=== PATIENT | female | born 1965 | race Caucasian/White ===

== ENCOUNTER 2019-12-04 13:43 | Outpatient (CLI) | payer OTHER, SELFPAY ==
[2019-12-04 14:11] LABS: Basophils Absolute Auto 0.03 K/mm3 (0.00-0.10); Basophils Percent Auto 0.6 % (0.0-1.0); Eosinophils Absolute Auto 0.34 K/mm3 (0.02-0.50); Eosinophils Percent Auto 6.6 % (1.0-6.0); Hematocrit 43.1 % (35.0-49.0); Hemoglobin 13.7 g/dL (12.0-15.0); Immature Granulocyte Absolute 0.01 K/mm3 (0.00-0.00); Immature Granulocyte Percent A 0.2 % (0.0-0.0); Lymphocytes Absolute Auto 2.31 K/mm3 (1.10-4.50); Mean Corpuscular HGB Conc 31.8 g/dL (32.0-36.0); Mean Corpuscular Hemoglobin 31.2 pg (27.0-31.0); Mean Corpuscular Volume 98.2 fL (78.0-102.0); Mean Platelet Volume 10.1 fl (9.2-11.8); Monocytes Absolute Auto 0.42 K/mm3 (0.10-0.90); Monocytes Percent Auto 8.2 % (2.0-11.0); Neutrophils Percent Auto 39.4 % (50.0-70.0); Platelet Count Result 214 K/mm3 (150-420); Red Blood Count 4.39 M/mm3 (4.20-5.40); Red Cell Distribution Width 14.2 % (11.6-14.4); White Blood Count 5.1 K/mm3 (4.8-10.8)
[2019-12-04 14:52] LABS: Alanine Aminotransferase 32 U/L (14-59); Albumin Level 3.6 g/dL (3.4-5.0); Alkaline Phosphatase 123 U/L (46-116); Anion Gap 10.9 mmol/L (7-16); Aspartate Amino Transferase 21 U/L (15-37); Bilirubin,Total 0.3 mg/dL (0.00-1.00); Blood Urea Nitrogen 20 mg/dL (7-18); Calcium 9.5 mg/dL (8.5-10.1); Carbon Dioxide 32 mmol/L (21-32); Chloride 105 mmol/L (98-108); Estimated Glomerular Filt Rate > 60; Glucose 180 mg/dL (70-99); Osmolality Calculated 305 mOsm/kg (285-295); Potassium 3.9 mmol/L (3.5-5.1); Sodium 144 mmol/L (136-145); Total Protein 6.7 g/dL (6.4-8.2)
== END 2019-12-04 13:44 | disposition home or self-care (01) ==
PROVIDERS: PCP Family Medicine; Visit Provider Internal Medicine Hematology & Oncology
DX: C50.411 Malignant neoplasm of upper-outer quadrant of right female breast (principal); Z17.0 Estrogen receptor positive status [ER+]
CPT/HCPCS: 36415; 80053; 85025

== ENCOUNTER 2019-12-29 19:50 | Outpatient (CLI) | payer OTHER, SELFPAY ==
[2019-12-29 20:16] LABS: Hemoglobin A1C 6.9 % (<5.7)
== END 2019-12-29 19:51 | disposition home or self-care (01) ==
LOC: CHSLAB 20:00
PROVIDERS: PCP Family Medicine; Visit Provider Physician Assistant
DX: E11.9 Type 2 diabetes mellitus without complications (principal)
CPT/HCPCS: 36415; 83036

== ENCOUNTER 2020-04-17 18:14 | Outpatient (CLI) | payer OTHER, SELFPAY ==
[2020-04-17 18:39] LABS: Hemoglobin A1C 6.5 % (<5.7)
[2020-04-17 19:27] LABS: Anion Gap 7 mmol/L (8-16); Blood Urea Nitrogen 25 mg/dL (7-18); Calcium 9.6 mg/dL (8.5-10.1); Carbon Dioxide 32 mmol/L (21-32); Chloride 105 mmol/L (98-108); Estimated Glomerular Filt Rate 58; Glucose 136 mg/dL (70-99); Osmolality Calculated 304 mOsm/kg (285-295); Potassium 3.8 mmol/L (3.5-5.1); Sodium 144 mmol/L (136-145)
== END 2020-04-17 18:15 | disposition home or self-care (01) ==
LOC: CHSLAB 18:16
PROVIDERS: Nurse Practitioner Family; PCP Physician Assistant; Visit Provider Physician Assistant
DX: E11.9 Type 2 diabetes mellitus without complications (principal)
CPT/HCPCS: 36415; 80048; 83036

== ENCOUNTER 2020-05-26 18:12 | Outpatient (CLI) | payer OTHER, SELFPAY ==
[2020-05-26 18:49] LABS: Basophils Absolute Auto 0.04 K/mm3 (0.00-0.10); Basophils Percent Auto 0.7 % (0.0-1.0); Eosinophils Absolute Auto 0.43 K/mm3 (0.02-0.50); Eosinophils Percent Auto 7.5 % (1.0-6.0); Hematocrit 43.9 % (35.0-49.0); Hemoglobin 14.2 g/dL (12.0-15.0); Immature Granulocyte Absolute 0.02 K/mm3 (0.00-0.00); Immature Granulocyte Percent A 0.4 % (0.0-0.0); Lymphocytes Absolute Auto 2.53 K/mm3 (1.10-4.50); Lymphocytes Percent Auto 44.4 % (18.0-42.0); Mean Corpuscular HGB Conc 32.3 g/dL (32.0-36.0); Mean Corpuscular Hemoglobin 31.3 pg (27.0-31.0); Mean Corpuscular Volume 96.7 fL (78.0-102.0); Monocytes Percent Auto 8.8 % (2.0-11.0); Neutrophils Absolute Auto 2.2 K/mm3 (1.7-7.2); Neutrophils Percent Auto 38.2 % (50.0-70.0); Platelet Count Result 256 K/mm3 (150-420); Red Blood Count 4.54 M/mm3 (4.20-5.40); Red Cell Distribution Width 14.2 % (11.6-14.4); White Blood Count 5.7 K/mm3 (4.8-10.8)
[2020-05-26 19:19] LABS: Alanine Aminotransferase 44 U/L (14-59); Alkaline Phosphatase 114 U/L (46-116); Anion Gap 7 mmol/L (8-16); Aspartate Amino Transferase 23 U/L (15-37); Bilirubin,Total 0.4 mg/dL (0.00-1.00); Blood Urea Nitrogen 17 mg/dL (7-18); Calcium 9.5 mg/dL (8.5-10.1); Carbon Dioxide 34 mmol/L (21-32); Chloride 105 mmol/L (98-108); Estimated Glomerular Filt Rate > 60; Glucose 124 mg/dL (70-99); Osmolality Calculated 304 mOsm/kg (285-295); Potassium 3.8 mmol/L (3.5-5.1); Sodium 146 mmol/L (136-145); Total Protein 6.7 g/dL (6.4-8.2)
[2020-05-30 21:42] LABS: CA 27.29 34 U/mL (<38)
== END 2020-05-26 18:13 | disposition home or self-care (01) ==
LOC: CHSLAB 18:15
PROVIDERS: PCP Family Medicine; Visit Provider Internal Medicine Hematology & Oncology
DX: C50.411 Malignant neoplasm of upper-outer quadrant of right female breast (principal); Z17.0 Estrogen receptor positive status [ER+]
CPT/HCPCS: 36415; 80053; 85025; 86300

== ENCOUNTER 2020-06-22 18:13 | Outpatient (CLI) | payer OTHER, SELFPAY ==
[2020-06-22 19:24] LABS: Cholesterol 195 mg/dL (0-200); HDL Direct 71 mg/dL (40-60); LDL Cholesterol Calculated 91 mg/dL (<130); Thyroid Stimulating Hormone 0.59 uIU/mL (0.36-3.74); Triglycerides 167 mg/dL (0-150)
[2020-06-23 06:16] LABS: Creatinine Urine 64.66 mg/dL (40-278); MALB Creatinine Ratio 20.1 mg/g (0-30); Microalbumin Urine Random < 13.0 mg/L
== END 2020-06-22 18:14 | disposition home or self-care (01) ==
LOC: CHSLAB 18:16
PROVIDERS: PCP Physician Assistant; Visit Provider Physician Assistant
DX: E78.2 Mixed hyperlipidemia (principal); E11.9 Type 2 diabetes mellitus without complications
CPT/HCPCS: 36415; 80061; 82043; 84439; 84443

== ENCOUNTER 2020-06-27 11:03 | Outpatient (CLI) | payer OTHER, SELFPAY ==
[2020-06-28 18:52] LABS: SARS-CoV-2 RNA PCR Positive
== END 2020-06-27 11:04 | disposition home or self-care (01) ==
LOC: CHSLAB 11:07
PROVIDERS: Visit Provider Nurse Practitioner
DX: U07.1 COVID-19 (principal)
CPT/HCPCS: 87635; C9803; U0003

== ENCOUNTER 2020-09-18 19:01 | Observation (INO) | payer OTHER, SELFPAY ==
[2020-09-18] VITALS (10 sets, daily range): BP systolic 124–142; BP diastolic 80–96; PULSE 83–89; RESP 13–22; TEMP 36.6–36.8; O2SAT 96–100; BMI 44.9
--- NOTE | ~2020-09-18 | XR_ITS ---
EXAMINATION: XR chest 2V DATE: 09/18/2020 19:24 INDICATION: Weakness. TECHNIQUE: Frontal and lateral views of the chest were obtained. COMPARISON: Chest 2 views 01/26/2017, CT abdomen and pelvis 12/20/2018 FINDINGS: The chest demonstrates clear lungs without pneumonia, pleural effusion, or pneumothorax. Th e heart size is normal. There is surgical clips in the chest wall. IMPRESSION: 1. No acute cardiopulmonary disease. Reviewed, dictated and finalized at location A. [facility]
--- NOTE | 2020-09-18 19:08 | ECG_ITS ---
Measurements Intervals [place] Rate: 90 P: 57 CA: 153 QRS: 47 QRSD: 77 T: 51 QT: 363 QTc: 445 Interpretive Statements SINUS RHYTHM BASELINE ARTIFACT- I, II, III, AVR, AVL, AVF, V1, V4-V6 NORMAL ECG Electronically Signed On 09-20-2020 8:10:04 REHAB SPECIALIST by Lon Dillon D.O.
[2020-09-18 19:20] LABS: Glucose Point of Care 157 (65-105)
[2020-09-18] MEDS: NITROGLYCERIN SL 0.4 MG TABLET SUBLINGUAL (19:28)
[2020-09-18] MEDS: ASPIRIN 81 MG CHEWABLE TABLET 324 MG PO (19:33)
[2020-09-18] MEDS: SODIUM CHLORIDE 0.9% IV 1,000 ML 999 ML IV CONT (19:41)
--- NOTE | 2020-09-18 19:52 | ED.WEAKNESS ---
HPI - Weakness General Chief complaint: Weakness Stated complaint: Not feeling well Time Seen by Provider: 09/18/20 19:20 Source: patient Mode of arrival: ambulatory Limitations: no limitations History of Present Illness HPI Narrative: 54-year-old woman with a history of type 2 diabetes comes to the emergency department complaining of weakness, feeling sweaty and nauseated. She states that she did not feel well yesterday or today and she tried to come to work today but she got worse when she got here. She states that she has had no fever, cough or cold symptoms, abdominal pain, dysuria, vomiting, diarrhea, rash, chest pain or shortness of breath. She denies any recent illnesses or sick exposures. MD Complaint: generalized weakness Onset (ago): day(s) (1-2) Duration: constant and progressively worsening Location: generalized Migration: none Relieving factors: none Exacerbating factors: rest Associated symptoms: denies other symptoms Related Data Home Medications Medication Instructions Recorded Confirmed acetaminophen 1,000 mg PO HS 09/18/20 09/18/20 albuterol sulfate 2 puff INHALATION QID PRN 09/18/20 09/18/20 amitriptyline 150 mg PO HS 09/18/20 09/18/20 armodafinil [Nuvigil] 150 mg PO QAM 09/18/20 09/18/20 aspirin 325 mg PO DAILY 09/18/20 09/18/20 khrsgnx-zkujueuulqeqt-fzrsviqd 2 tablet PO Q4-6H PRN 09/18/20 09/18/20 [Excedrin Migraine] atorvastatin 80 mg PO DAILY 09/18/20 09/18/20 black cohosh 540 mg PO HS 09/18/20 09/18/20 bupropion HCl 450 mg PO DAILY 09/18/20 09/18/20 uktjhreytp-mhllfdo-denbifxp 1 cap PO Q4-6H PRN 09/18/20 09/18/20 [Fiorinal] calcium-vitamin D2 1 cap PO BID 09/18/20 09/18/20 cholecalciferol (vitamin D3) 100 mcg PO HS 09/18/20 09/18/20 [Vitamin D3] empagliflozin [Jardiance] 25 mg PO DAILY 09/18/20 09/18/20 fluticasone propion-salmeterol 1 inh INHALATION BID 09/18/20 09/18/20 [Wixela Inhub] fluticasone propionate 2 spray INTRANASAL DAILY 09/18/20 09/18/20 gabapentin 1,200 mg PO BID 09/18/20 09/18/20 galcanezumab-gnlm [Emgality Pen] 120 mg SUBCUT MONTHLY 09/18/20 09/18/20 glipizide 10 mg PO BID 09/18/20 09/18/20 hydrochlorothiazide 25 mg PO DAILY 09/18/20 09/18/20 hydroxyzine HCl 50 mg PO HS 09/18/20 09/18/20 ketorolac 10 mg PO BID PRN 09/18/20 09/18/20 loratadine 10 mg PO DAILY 09/18/20 09/18/20 losartan 25 mg PO DAILY 09/18/20 09/18/20 melatonin 20 mg PO HS PRN 09/18/20 09/18/20 multivit with min-folic acid 1 tablet PO DAILY 09/18/20 09/18/20 [Adult One Daily Multivitamin] omega-3 fatty acids-vitamin E 1 cap PO DAILY 09/18/20 09/18/20 [[place]-3 Fish Oil] omeprazole 20 mg PO DAILY 09/18/20 09/18/20 pioglitazone [Actos] 15 mg PO DAILY 09/18/20 09/18/20 potassium chloride 20 meq PO BID 09/18/20 09/18/20 vitamin B complex [B 1 tablet PO HS 09/18/20 09/18/20 Complex-Vitamin B12] Allergies Allergy/AdvReac Type Severity Reaction Status Date / Time codeine Allergy Unknown Verified 09/18/20 19:21 furosemide [From Lasix] Allergy Unknown Verified 09/18/20 19:21 metformin Allergy Unknown Verified 09/18/20 19:21 sertraline [From Zoloft] Allergy Unknown Verified 09/18/20 19:21 Review of Systems Constitutional: Constitutional: Denies chills, Denies fever(s) and Reports weakness Eyes: Eyes: Denies change in vision and Denies photophobia ENT: Denies dysphagia, Denies nasal congestion and Denies sore throat Cardiovascular: Cardiovascular: Denies chest pain and Denies radiating jaw, neck or arm pain Respiratory: Respiratory: Denies cough, Denies dyspnea and Denies wheezing Gastrointestinal: Gastrointestinal: Denies abdominal pain, Denies diarrhea, Reports nausea and Denies vomiting Genitourinary: Genitourinary: Denies nocturia and Denies dysuria Musculoskeletal: Musculoskeletal: Denies arthralgias and Denies joint swelling Integumentary/Breasts: Skin/Breast: Denies pruritus, Denies erythema and Denies rash Neurologic: Denies vertigo, Reports dizziness and Denies syncope Hematologic/L
[2020-09-18 19:57] LABS: Basophils Absolute Auto 0.05 K/mm3 (0.00-0.10); Basophils Percent Auto 0.8 % (0.0-1.0); Eosinophils Absolute Auto 0.63 K/mm3 (0.02-0.50); Eosinophils Percent Auto 9.6 % (1.0-6.0); Hematocrit 47.4 % (35.0-49.0); Hemoglobin 15.4 g/dL (12.0-15.0); Immature Granulocyte Absolute 0.07 K/mm3 (0.00-0.00); Immature Granulocyte Percent A 1.1 % (0.0-0.0); Lymphocytes Absolute Auto 2.36 K/mm3 (1.10-4.50); Lymphocytes Percent Auto 36.1 % (18.0-42.0); Mean Corpuscular HGB Conc 32.5 g/dL (32.0-36.0); Mean Corpuscular Hemoglobin 30.9 pg (27.0-31.0); Mean Platelet Volume 9.7 fl (9.2-11.8); Monocytes Absolute Auto 0.44 K/mm3 (0.10-0.90); Monocytes Percent Auto 6.7 % (2.0-11.0); Neutrophils Percent Auto 45.7 % (50.0-70.0); Platelet Count Result 311 K/mm3 (150-420); Red Blood Count 4.99 M/mm3 (4.20-5.40); Red Cell Distribution Width 14.6 % (11.6-14.4); White Blood Count 6.5 K/mm3 (4.8-10.8)
[2020-09-18 20:13] LABS: D Dimer 0.37 mg/L (0.19-0.50); Lactic Acid Reflex 1.7 mmol/L (0.4-2.0); Partial Thromboplastin Time 24.2 SEC (23.90-30.70); Prothrombin Time 10.9 Seconds (9.50-12.10)
[2020-09-18 20:14] LABS: Alanine Aminotransferase 42 U/L (14-59); Alkaline Phosphatase 101 U/L (46-116); Anion Gap 10 mmol/L (8-16); Aspartate Amino Transferase 20 U/L (15-37); Bilirubin,Total 0.4 mg/dL (0.00-1.00); Blood Urea Nitrogen 26 mg/dL (7-18); CRP < 0.5 mg/dL (0.0-0.9); Calcium 9.7 mg/dL (8.5-10.1); Carbon Dioxide 29 mmol/L (21-32); Chloride 102 mmol/L (98-108); Estimated Glomerular Filt Rate 60; Glucose 189 mg/dL (70-99); Lipase 74 U/L (73-393); Osmolality Calculated 301 mOsm/kg (285-295); Potassium 3.5 mmol/L (3.5-5.1); Sodium 141 mmol/L (136-145); Total Protein 7.3 g/dL (6.4-8.2)
[2020-09-18 20:21] LABS: Troponin I 6.2 ng/L (0.00-60.4)
[2020-09-18 21:21] LABS: Influenza Control Valid (Valid); SARS-CoV-2 Ag Negative (Negative)
--- NOTE | 2020-09-18 21:33 | PC.NURSE ---
RN CONTACTED 2ND FLOOR TO REQUEST OBS WITH TELE. ROOM 205 PROVIDED BY SIA BARNES. REGISTRATION NOTIFIED. CAMERON TO CALL ED FOR REPORT.
--- NOTE | 2020-09-18 21:52 | PC.NURSE ---
1926 PATIENT INITIATED CALL LIGHT. RN ENTERED ROOM 2 IMMEDIATELY TO FIND PATIENT EXTREMELY SHORT OF BREATH STATING SHE HAS CRUSING HEST PAIN 05/01. ERP NOTIFIED. OTHER ED RN, DONELL NOTIFIED. NITRO SL X3 AND 12 LEAD EKG OBTAINED.
--- NOTE | 2020-09-18 22:15 | PC.NURSE ---
pt denies any chest pain, pressure, or any other symptoms, telemetry on SR
[2020-09-18] MEDS: VITAMIN B COMPLEX CAPSULE 1 CAP PO (22:41)
[2020-09-18] MEDS: AMITRIPTYLINE HCL 25 MG TABLET 150 MG PO (22:42)
[2020-09-18] MEDS: SALMET XINAFT/FLUTIC PROPIN 250 MCG/50 MCG INH CAP 1 PUFF INHALATION (22:42)
[2020-09-18] MEDS: hydrOXYzine HCL 25 MG TABLET 50 MG PO (22:42)
[2020-09-18] MEDS: CHOLECALCIFEROL 1,000 UNITS TABLET 1000 UNITS PO (22:42)
[2020-09-18] MEDS: POTASSIUM CHLORIDE 20 MEQ TABLET PO (22:45)
[2020-09-18] MEDS: GABAPENTIN 400 MG CAPSULE 1200 MG PO (22:45)
[2020-09-18 23:35] LABS: Troponin I 6.6 ng/L (0.00-60.4)
--- NOTE | 2020-09-19 00:04 | ADMGEN ---
This patient, Ofelia Hayward, was admitted to 2nd Floor Room 205-1. Patient oriented to hospital policies and general routines including ID bracelet, bed and alarms, visiting hours, pain management, procedures, bathroom and other care routines, personal items, smoking policy, room service/diet, and visiting hours. Patient encouraged to report perceived risks to care and to ask questions if they do not understand what they are told or what they should do.
--- NOTE | 2020-09-19 01:54 | PC.NURSE ---
pt sleeping, no evidence of distress noted, call light and belongings within reach, telemetry SR
[2020-09-19 02:33] LABS: Troponin I 7.1 ng/L (0.00-60.4)
[2020-09-19 04:00] VITALS: BP 150/86; PULSE 87; RESP 18; TEMP 36.4; O2SAT 97
--- NOTE | 2020-09-19 04:05 | PC.NURSE ---
Dr. Patino notified of pt's c/o chest pain. Orders received and noted.
--- NOTE | 2020-09-19 04:10 | ECG_ITS ---
Measurements Intervals [place] Rate: 96 P: 54 [place]: 154 QRS: 23 QRSD: 81 T: 29 QT: 362 QTc: 458 Interpretive Statements SINUS RHYTHM LOW QRS VOLTAGE IN PRECORDIAL LEADS BORDERLINE ECG Electronically Signed On 09-20-2020 8:10:18 CHIEF FINANCIAL OFFICER by Lon Dillon D.O.
[2020-09-19] MEDS: NITROGLYCERIN SL 0.4 MG TABLET SUBLINGUAL (04:13)
[2020-09-19] MEDS: NITROGLYCERIN SL 0.4 MG TABLET 0.8 MG (04:26)
--- NOTE | 2020-09-19 04:29 | PC.NURSE ---
pt given a total of 3 Nitro tabs, rating pain 2/10 at this time, See MAR for other medications given as well
[2020-09-19] MEDS: MAG HYDROX/ALUMINUM HYD/SIMETH 30 ML, PHENobarb/HYOSCY/ATROPINE/SCOP 32.4 MG, LIDOCAINE... PO (04:30)
[2020-09-19] MEDS: PANTOPRAZOLE SODIUM IV 40 MG VIAL IV PUSH (04:33)
--- NOTE | 2020-09-19 04:50 | PC.NURSE ---
Addendum entered by Liliya Marino RN 09/19/20 04:54: the time of this occurrence was 0400 Original Note: pt vitals obtained, pt complained of chest soreness rating 4/10, denies sob, or any other symptoms, charge nurse notified
[2020-09-19 05:53] LABS: Basophils Absolute Auto 0.06 K/mm3 (0.00-0.10); Basophils Percent Auto 0.9 % (0.0-1.0); Eosinophils Absolute Auto 0.63 K/mm3 (0.02-0.50); Eosinophils Percent Auto 9.2 % (1.0-6.0); Hemoglobin 13.3 g/dL (12.0-15.0); Immature Granulocyte Absolute 0.02 K/mm3 (0.00-0.00); Immature Granulocyte Percent A 0.3 % (0.0-0.0); Lymphocytes Absolute Auto 3.26 K/mm3 (1.10-4.50); Lymphocytes Percent Auto 47.5 % (18.0-42.0); Mean Corpuscular HGB Conc 31.7 g/dL (32.0-36.0); Mean Corpuscular Hemoglobin 30.2 pg (27.0-31.0); Mean Corpuscular Volume 95.5 fL (78.0-102.0); Mean Platelet Volume 9.6 fl (9.2-11.8); Monocytes Absolute Auto 0.53 K/mm3 (0.10-0.90); Monocytes Percent Auto 7.7 % (2.0-11.0); Neutrophils Absolute Auto 2.4 K/mm3 (1.7-7.2); Neutrophils Percent Auto 34.4 % (50.0-70.0); Platelet Count Result 271 K/mm3 (150-420); Red Cell Distribution Width 14.6 % (11.6-14.4); White Blood Count 6.9 K/mm3 (4.8-10.8)
[2020-09-19] MEDS: SALMET XINAFT/FLUTIC PROPIN 250 MCG/50 MCG INH CAP 1 PUFF INHALATION (05:56)
[2020-09-19 06:14] LABS: Alanine Aminotransferase 35 U/L (14-59); Albumin Level 3.3 g/dL (3.4-5.0); Alkaline Phosphatase 82 U/L (46-116); Anion Gap 7 mmol/L (8-16); Aspartate Amino Transferase 18 U/L (15-37); Bilirubin,Total 0.4 mg/dL (0.00-1.00); Blood Urea Nitrogen 19 mg/dL (7-18); Calcium 9.2 mg/dL (8.5-10.1); Carbon Dioxide 29 mmol/L (21-32); Chloride 104 mmol/L (98-108); Estimated CRCL calculation 85 ml/min; Estimated Glomerular Filt Rate > 60; Glucose 148 mg/dL (70-99); Osmolality Calculated 295 mOsm/kg (285-295); Potassium 3.6 mmol/L (3.5-5.1); Sodium 140 mmol/L (136-145); Total Protein 6.2 g/dL (6.4-8.2); Troponin I 6.5 ng/L (0.00-60.4)
[2020-09-19 08:00] VITALS: BP 111/73; PULSE 90; RESP 18; TEMP 36.9; O2SAT 98
--- NOTE | 2020-09-19 08:00 | PC.NURSE ---
No chest pain this am, telemetry SR 80-90, no ectopics noted
--- NOTE | 2020-09-19 09:00 | PC.NURSE ---
No chest pain
--- NOTE | 2020-09-19 09:16 | PM.SD2 ---
Same Day Admit/Disch: HPI History of Present Illness Chief complaint: Not feeling well Narrative: Ofelia Hayward is a 54 year old female that presented to our ED with complaints of weakness, feeling diaphoretic and nauseated. 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 She was brought down to our ED at the time she started to have chest pain she describes describes the pain is an elephant lying on her chest at that time she was given 3 nitros and her chest pain resolved. Patient's EKG sinus rhythm her lactic was negative, troponin negative x3, chest x-ray negative, Covid negative and blood sugars within. Patient notes she did have another episode of chest pain throughout the night that resolved. She has not had any more chest pain since. Patient will be discharged today she was advised to follow-up with her primary care physician to see if she possibly needs a stress test. The patient denies SOB, CP, palpitation, extremity numbness, lightheadedness, dizziness, constipation, diarrhea, chills, or fever. [facility] Past Medical History Medical History (Updated 09/18/20 @ 21:29 by Sandip Patino MD) Asthma COPD (chronic obstructive pulmonary disease) Neuropathy Type 2 diabetes mellitus Surgical History Surgical History (Updated 09/18/20 @ 19:59 by Sandip Patino MD) H/O mastectomy Social History Social History (Updated 09/18/20 @ 20:00 by Sandip Patino MD) Smoking status: Former smoker Alcohol intake: never Substance use: never Living arrangements: with family Gender identity (if verbalized by the patient): Female Spiritual care concerns: No Same Day Admit/Disch: Med Pre-admit Medications Home Medications Medication Instructions Recorded Confirmed Type acetaminophen 1,000 mg PO HS 09/18/20 09/18/20 History albuterol sulfate 2 puff INHALATION QID PRN 09/18/20 09/18/20 History amitriptyline 150 mg PO HS 09/18/20 09/18/20 History armodafinil [Nuvigil] 150 mg PO QAM 09/18/20 09/18/20 History aspirin 325 mg PO DAILY 09/18/20 09/18/20 History rdmjrgd-jenypupyvbwzt-qdvaxalu 2 tablet PO Q4-6H PRN 09/18/20 09/18/20 History [Excedrin Migraine] atorvastatin 80 mg PO DAILY 09/18/20 09/18/20 History black cohosh 540 mg PO HS 09/18/20 09/18/20 History bupropion HCl 450 mg PO DAILY 09/18/20 09/18/20 History ybhqwovqfv-pnxfylo-dplafyzf 1 cap PO Q4-6H PRN 09/18/20 09/18/20 History [Fiorinal] calcium-vitamin D2 1 cap PO BID 09/18/20 09/18/20 History cholecalciferol (vitamin D3) 100 mcg PO HS 09/18/20 09/18/20 History [Vitamin D3] empagliflozin [Jardiance] 25 mg PO DAILY 09/18/20 09/18/20 History fluticasone propion-salmeterol 1 inh INHALATION BID 09/18/20 09/18/20 History [Wixela Inhub] fluticasone propionate 2 spray INTRANASAL DAILY 09/18/20 09/18/20 History gabapentin 1,200 mg PO BID 09/18/20 09/18/20 History galcanezumab-gnlm [Emgality Pen] 120 mg SUBCUT MONTHLY 09/18/20 09/18/20 History glipizide 10 mg PO BID 09/18/20 09/18/20 History hydrochlorothiazide 25 mg PO DAILY 09/18/20 09/18/20 History hydroxyzine HCl 50 mg PO HS 09/18/20 09/18/20 History ketorolac 10 mg PO BID PRN 09/18/20 09/18/20 History loratadine 10 mg PO DAILY 09/18/20 09/18/20 History losartan 25 mg PO DAILY 09/18/20 09/18/20 History melatonin 20 mg PO HS PRN 09/18/20 09/18/20 History multivit with min-folic acid 1 tablet PO DAILY 09/18/20 09/18/20 History [Adult One Daily Multivitamin] omega-3 fatty acids-vitamin E 1 cap PO DAILY 09/18/20 09/18/20 History [[place]-3 Fish Oil] omeprazole 20 mg PO DAILY 09/18/20 09/18/20 History pioglitazone [Actos] 15 mg PO DAILY 09/18/20 09/18/20 History potassium chloride 20 meq PO BID 09/18/20 09/18/20 History vitamin B complex [B 1 tablet PO HS 09/18/20 09/18/20 History Complex-Vitamin B12] Exam Narrative: Exam Narrative: GENERAL: This is a well-nourished, well-developed patient, in no apparent distres
[2020-09-19] MEDS: PANTOPRAZOLE 40 MG TABLET PO (09:17)
[2020-09-19] MEDS: OMEGA 3 POLYUNSAT FATTY ACIDS 1 GM CAP PO (09:18)
[2020-09-19] MEDS: hydroCHLOROthiazide 25 MG TABLET PO (09:18)
[2020-09-19] MEDS: THERAPEUTIC MULTIVITAMINS/MINERALS TAB (*BKC) 1 TABLET PO (09:18)
[2020-09-19] MEDS: GABAPENTIN 400 MG CAPSULE 1200 MG PO (09:18)
[2020-09-19] MEDS: ASPIRIN 325 MG ENTERIC TABLET PO (09:19)
[2020-09-19] MEDS: PIOGLITAZONE HCL 15 MG TAB PO (09:20)
[2020-09-19] MEDS: LORATADINE 10 MG TABLET PO (09:20)
[2020-09-19] MEDS: ATORVASTATIN 40 MG TABLET 80 MG PO (09:20)
[2020-09-19] MEDS: POTASSIUM CHLORIDE 20 MEQ TABLET PO (09:21)
[2020-09-19] MEDS: glipiZIDE XL 5 MG TABCR 10 MG PO (09:21)
[2020-09-19] MEDS: CALCIUM/VITAMIN D 250 MG TABLET 2 TABLET PO (09:21)
[2020-09-19] MEDS: LOSARTAN POTASSIUM 25 MG TABLET PO (09:22)
--- NOTE | 2020-09-19 10:00 | PC.NURSE ---
Telemetry SR, 80's no ectopics noted
--- NOTE | 2020-09-19 11:58 | PC.NURSE ---
Patient discharged to home today. Discharge instructions reviewed with patient. Patient left the floor via wheelchair with all belongings. Patient's sister picked her up in her personal car.
--- NOTE | 2020-09-22 10:35 | PC.NURSE ---
Pt states she received and understood her discharge instructions. She has no other comments.
== END 2020-09-19 11:45 | disposition home or self-care (01) ==
LOC: CHSED 21:29 → CHS2ND 21:41
PROVIDERS: Admitting Provider Emergency Medicine; Emergency Provider Emergency Medicine; PCP Family Medicine; Visit Provider Emergency Medicine
DX: R07.89 Other chest pain (principal); R53.1 Weakness; J44.9 Chronic obstructive pulmonary disease, unspecified; E11.40 Type 2 diabetes mellitus with diabetic neuropathy, unspecified; Z87.891 Personal history of nicotine dependence; Z20.822 Contact with and (suspected) exposure to COVID-19
CPT/HCPCS: 36415; 71046; 80053; 82948; 83605; 83690; 84484; 85025; 85380; 85610; 85730; 86140; 87040; 87426; 87804; 93005; 96360; 96361; 96374; 99285; A9270; C9113; C9803; G0378; J7030

== ENCOUNTER 2020-10-07 09:35 | Outpatient (CLI) | payer OTHER, SELFPAY ==
--- NOTE | 2020-10-07 | EST_ITS ---
Patient Info Name: Ofelia Hayward Age: 54 years : 1965 Gender: Female Ht: 63 in Wt: 250 lbs BSA: 2.31 m2 Exam Date: 10/07/2020 10:51 AM Exam Location: [facility] Stress Patient Status: Outpatient Admit Date: 10/07/2020 Staff Ordering Physician: Swathi, Lashawn Kent PA-C Attending Provider: Swathi, Lashawn Kent PA-C Exercise Technologist: Mariah Gavin RDCS Exercise Physician: Lon Dillon DO Exam Type: CA stress nikkie w NM Study Info Indications R07.9 - Chest pain, unspecified A regadenoson stress test was performed. Summary 1. 1. Negative lexiscan stress test for ischemic ST changes by ECG criteria. 2. 2. Stable hemodynamics throughout the test. 3. 3. Nuclear scan to follow and will be reported separately. Please correlate with it. 4. 4. Patient informed of the above results. Protocol: Lexiscan Stress ECG Details Stage: REST Duration (min): 7 min : 4 sec HR (bpm): 85 SBP (mmHg): 156 DBP (mmHg): 98 Stage: REST Duration (min): 29 min : 1 sec HR (bpm): 84 SBP (mmHg): 156 DBP (mmHg): 98 Stage: STAGE 1 Duration (min): 1 min : 0 sec HR (bpm): 86 SBP (mmHg): 156 DBP (mmHg): 98 Stage: RECOVERY Duration (min): 1 min : 0 sec HR (bpm): 92 SBP (mmHg): 156 DBP (mmHg): 98 Stage: RECOVERY Duration (min): 2 min : 0 sec HR (bpm): 91 SBP (mmHg): 156 DBP (mmHg): 98 Stage: RECOVERY Duration (min): 3 min : 0 sec HR (bpm): 92 SBP (mmHg): 156 DBP (mmHg): 98 Stage: RECOVERY Duration (min): 4 min : 0 sec HR (bpm): 91 SBP (mmHg): 156 DBP (mmHg): 98 Stage: RECOVERY Duration (min): 4 min : 42 sec HR (bpm): 91 SBP (mmHg): 128 DBP (mmHg): 46 Rest HR: 84 bpm Peak HR: 92 bpm Rest Sys BP: 156 mmHg Peak Sys BP: 128 mmHg Max Pred HR: 165 bpm % Max Pred HR: 56 % Target HR: 140 bpm Max RPP: 11,776 bpm*mmHg Termination Reason: Completed protocol Cardiac Symptoms: Dizziness Total Time: 1 min : 0 sec Rest [place] BP: 98 mmHg Peak [place] BP: 46 mmHg Total Dose: 0.4 mg Resting ECG Sinus rhythm. Stress ECG No ST changes. Arrhythmias None. Report Signatures
--- NOTE | ~2020-10-07 | NM_ITS ---
EXAMINATION: NM nikkie stress w perfusion DATE: 10/07/2020 12:54 INDICATION: Chest pain. TECHNIQUE: Rest images were obtained following intravenous administration of 9 mCi Tc99m tetrofosmin (Myoview). The patient was infused intravenously with Lexiscan (regadenoson). Then, 26.9 mCi Tc99m te trofosmin (Myoview) was administered intravenously, and stress images were obtained. Data was reconst ructed into short axis and horizontal and vertical long axis SPECT images. Gated SPECT images were al so obtained. COMPARISON: None. FINDINGS: There is no definite reversible or fixed perfusion abnormality to suggest ischemia or infar ction. There is no segmental wall motion abnormality. Left ventricular ejection fraction measures > 70%. IMPRESSION: 1. No definite ischemia or infarct. 2. Normal left ventricular ejection fraction measuring >70%. Reviewed, dictated and finalized at location A.
== END 2020-10-07 09:36 | disposition home or self-care (01) ==
LOC: ANHCARD 09:40
PROVIDERS: PCP Family Medicine; Visit Provider Physician Assistant
DX: R07.89 Other chest pain (principal)
CPT/HCPCS: 78452; 93017; A9502; J2785

== ENCOUNTER 2021-02-01 17:59 | Outpatient (CLI) | payer OTHER, SELFPAY ==
[2021-02-01 18:27] LABS: Hematocrit 45.2 % (35.0-49.0); Hemoglobin 14.9 g/dL (12.0-15.0); Mean Corpuscular Hemoglobin 30.7 pg (27.0-31.0); Mean Corpuscular Volume 93.2 fL (78.0-102.0); Mean Platelet Volume 9.9 fl (9.2-11.8); Platelet Count Result 238 K/mm3 (150-420); Red Blood Count 4.85 M/mm3 (4.20-5.40); Red Cell Distribution Width 14.4 % (11.6-14.4); White Blood Count 6.2 K/mm3 (4.8-10.8)
[2021-02-01 18:39] LABS: Hemoglobin A1C 7.4 % (<5.7)
[2021-02-01 19:38] LABS: Alanine Aminotransferase 38 U/L (14-59); Albumin Level 3.8 g/dL (3.4-5.0); Alkaline Phosphatase 128 U/L (46-116); Anion Gap 12 mmol/L (8-16); Aspartate Amino Transferase 22 U/L (15-37); Bilirubin,Total 0.4 mg/dL (0.00-1.00); Blood Urea Nitrogen 32 mg/dL (7-18); Calcium 9.4 mg/dL (8.5-10.1); Carbon Dioxide 28 mmol/L (21-32); Chloride 106 mmol/L (98-108); Estimated Glomerular Filt Rate > 60; Glucose 145 mg/dL (70-99); Osmolality Calculated 311 mOsm/kg (285-295); Sodium 146 mmol/L (136-145); Total Protein 6.5 g/dL (6.4-8.2)
[2021-02-01 20:14] LABS: Band Neutrophils Percent 0 % (0-6); Basophils Percent Manual 0 % (0-1); Eosinophils Absolute Manual 0.62 K/mm3 (0.02-0.5); Eosinophils Percent Manual 10 % (1-6); Lymphocytes Absolute Manual 2.91 K/mm3 (1.1-4.5); Lymphocytes Percent Manual 47 % (18-44); Monocytes Absolute Manual 0.62 K/mm3 (0.1-0.90); Monocytes Percent Manual 10 % (3-9); Neutrophils Absolute Manual 2.04 K/mm3 (1.7-7.2); Neutrophils Percent Manual 33 % (46-73); Platelet Estimate Adequate (Adequate); Total Cells Counted 100
[2021-02-06 21:18] LABS: CA 15-3 29 U/mL (<32)
== END 2021-02-01 18:00 | disposition home or self-care (01) ==
LOC: CHSLAB 18:02
PROVIDERS: PCP Family Medicine; Visit Provider Internal Medicine Hematology & Oncology
DX: E11.9 Type 2 diabetes mellitus without complications (principal); C50.411 Malignant neoplasm of upper-outer quadrant of right female breast; Z17.0 Estrogen receptor positive status [ER+]
CPT/HCPCS: 36415; 80053; 83036; 85025; 86300

== ENCOUNTER 2021-03-31 09:00 | Outpatient (CLI) | payer OTHER, SELFPAY ==
--- NOTE | ~2021-03-31 | CT_ITS ---
EXAMINATION: CT brain wo con DATE: 03/31/2021 10:19 INDICATION: Headache. TECHNIQUE: Computed tomography (CT) of the head was performed without intravenous contrast. The mA wa s adjusted according to patient size. Iterative reconstruction technique was employed. The dose-lengt h product was 529.67 mGy-cm. COMPARISON: None FINDINGS: There is no intracranial hemorrhage, acute infarction, or abnormal intracranial mass lesion . The ventricles are normal in size. The orbits are normal. There is mucosal thickening in the parana doni sinuses. The mastoid air cells are normal. IMPRESSION: 1. Normal brain. Reviewed, dictated and finalized at location A. IMPRESSION: 1. Normal brain.
== END 2021-03-31 09:01 | disposition home or self-care (01) ==
LOC: ANHIMG 09:10
PROVIDERS: PCP Family Medicine; Visit Provider Physician Assistant
DX: R51.9 Headache, unspecified (principal)
CPT/HCPCS: 70450

== ENCOUNTER 2021-05-10 10:45 | Outpatient (CLI) | payer OTHER, SELFPAY ==
--- NOTE | ~2021-05-10 | CT_ITS ---
EXAMINATION: CT sinus wo con DATE: 05/10/2021 11:07 INDICATION: Acute sinusitis TECHNIQUE: Computed tomography (CT) of the paranasal sinuses was performed without intravenous contra st. The dose-length product was 273.54 mGy-cm. Automated exposure control and iterative reconstructio n technique were employed. COMPARISON: CT dated 03/31/2021 FINDINGS: There is mucosal thickening of the frontal, ethmoid, sphenoid and maxillary sinuses. No air -fluid levels demonstrated. There is rightward nasal septal deviation. Ostiomeatal units are occluded by soft tissue. No depressed skull fractures. IMPRESSION: 1. Mild pansinusitis. Reviewed, dictated and finalized at location B. IMPRESSION: 1. Mild pansinusitis.
== END 2021-05-10 10:46 | disposition home or self-care (01) ==
LOC: ANHIMG 10:47
PROVIDERS: PCP Family Medicine; Visit Provider Otolaryngology
DX: J01.90 Acute sinusitis, unspecified (principal); J33.9 Nasal polyp, unspecified; R09.81 Nasal congestion; J34.89 Other specified disorders of nose and nasal sinuses; J34.3 Hypertrophy of nasal turbinates; J34.2 Deviated nasal septum; J32.4 Chronic pansinusitis
CPT/HCPCS: 70486

== ENCOUNTER 2021-06-08 21:31 | Outpatient (CLI) | payer OTHER, SELFPAY ==
[2021-06-08 22:31] LABS: Anion Gap 7 mmol/L (8-16); Blood Urea Nitrogen 24 mg/dL (7-18); Calcium 9.2 mg/dL (8.5-10.1); Carbon Dioxide 34 mmol/L (21-32); Chloride 102 mmol/L (98-108); Estimated Glomerular Filt Rate > 60; Glucose 144 mg/dL (70-99); Osmolality Calculated 303 mOsm/kg (285-295); Potassium 4.2 mmol/L (3.5-5.1); Sodium 143 mmol/L (136-145)
== END 2021-06-08 21:32 | disposition home or self-care (01) ==
LOC: CHSLAB 21:34
PROVIDERS: PCP Family Medicine; Visit Provider Anesthesiology
DX: E11.9 Type 2 diabetes mellitus without complications (principal); Z79.899 Other long term (current) drug therapy
CPT/HCPCS: 36415; 80048

== ENCOUNTER 2021-06-14 00:22 | Day surgery (SDC) | payer OTHER, SELFPAY ==
[2021-06-08 08:40] VITALS: BMI 45.1
--- NOTE | 2021-06-08 09:10 | PC.NURSE ---
Report to the Outpatient Waiting Room, entrance under the green pavilion located off [facility], at time 0615 on date 06/14/21. OR Time: 0815. - You and your visitor will be asked a series of questions to screen for COVID 19 for your protection. - A mask is required within the hospital. - Only one visitor is allowed at this time. Patient visitors will be guided where to wait when not with patient. Preoperative COVID Testing Requirements: No COVID Test needed if: (proof is required; if not received patient will have Rapid Test prior to entry) - Patient has received COVID Vaccine at least 14 days prior to procedure date or - Patient has positive COVID test result within last 90 days of surgery date. COVID Test needed if above criteria is not met If not COVID vaccinated a COVID test must be conducted within 72 hours of surgery and patient is asked to isolate self from time of testing until procedure. You will go to the [facility] for your COVID testing. The [facility] is located at the corner of [address] [facility]. You will only be called if COVID results are positive and your surgeon may reschedule your elective surgery date. Patients may have clear liquids (water, carbonated beverages, clear teas, apple juice) until 3 hours prior to surgery with a maximum of 20 ounces. - No food from midnight until time of surgery - Infants may have breast milk until 4 hours before surgery, formula 6 hours prior to surgery. - Children will be allowed to drink immediately following surgery. If applicable, please bring a bottle or sippy cup to assist with drinking. Juice, water, soda, and popsicles are readily available. For infants on formula, please bring formula the day of surgery. Pacifiers are allowed. Take the following medications with a SIP of water the morning of surgery: INHALERS, BUPROPION, GABAPENTIN Medications to discontinue per physician: VITAMINS/SUPPLEMENTS Date to take last dose: 06/10/[address] HENRIQUEZ ABOUT STOPPING ASPIRIN Please no make-up, nail guamanian, hairspray, perfume, deodorant, or body powder the day of surgery. No jewelry (including any body piercings) or valuables the day of surgery, leave them at home. Please take a shower or bath the night before, or the morning of, surgery with an antibacterial soap. Wear comfortable, loose fitting clothing. Children are encouraged to wear pajamas. - Jewelry must be removed prior to entering the operating room. Rings and piercings that are not removed may be cut off. - The hospital will not accept responsibility for valuables. - Please leave all valuables, including medications, at home the day of surgery. If you are going home after surgery, a licensed route sales driver must drive you home. - NO public transportation without another adult. - We recommend that an adult stay with you for 24 hours following discharge. - We also recommend that you do not drive, make important decision, drink alcoholic beverages, or take any drugs that were not prescribed by your health care provider for at least 24 hours after your discharge time. For Pediatric surgeries, we recommend two adults accompany the child home (only one inside the building at this time). Follow any additional instructions given to you from your surgeon. Telephone instructions given to MARJORIE MORA and asked if any additional questions and then verbalized understanding. Patient advised to call surgeon office or pre surgery nurse liaison [phone] if any additional questions.
--- NOTE | 2021-06-13 07:51 | PM.IMHP ---
H&P: HPI History of Present Illness Date/Time: 06/13/21 07:51 Chief Complaint: Nasal obstruction nasal congestion inferior turbinate hypertrophy septal deviation chronic sinusitis nasal polyps Narrative: patient presents for planned surgical procedures. No change in symptoms no change in history. Review of Systems Constitutional: Constitutional: Denies fatigue, Denies fever(s) and Denies lethargy Eyes: Eyes: Denies blurry vision and Denies change in vision ENT: Reports as per HPI Cardiovascular: Cardiovascular: Denies chest pain Respiratory: Respiratory: Denies cough Endocrine: Endocrine: Denies fatigue Hematologic/Lymphatic: Hematologic/Lymphatic: Denies easy bleeding, Denies easy bruising and Denies lymphadenopathy Allergic/Immunologic: Allergic/Immunologic: Denies seasonal rhinorrhea [facility] Past Medical History Medical History Asthma Chronic depression Chronic migraine Chronic neuropathic pain Chronic right shoulder pain COPD (chronic obstructive pulmonary disease) De Quervain's tenosynovitis Ductal carcinoma of right breast HTN (hypertension) Hypercholesterolemia Hyperthyroidism Hypomagnesemia Insomnia Neuropathy Numbness and tingling Obstructive sleep apnea syndrome, moderate Type 2 diabetes mellitus Vitamin B12 deficiency Surgical History Surgical History H/O mastectomy History of bilateral breast reduction surgery History of tonsillectomy Family History Family History Father Cancer Hypertension Mother Asthma Cancer Hypertension Depression Heart disease Cerebrovascular accident Thyroid disorder Sibling Alcoholism Cancer Other Asthma Depression Grandparent Diabetes mellitus Hypertension Heart disease Cerebrovascular accident Grandparent Cancer Cerebrovascular accident Social History Social History Smoking packs per day: 1.5 Smoking cigarettes per day: 30.0 Years smoked: 30 Smoking pack-years: 45.00 Smoking status: Former smoker Tobacco type: cigarettes Smoking end date: 07/23/06 Alcohol intake: never Substance use: never Substance use type: does not use Gender identity (if verbalized by the patient): Female Spiritual care concerns: No Meds Home Medications and Allergies Home Medications Medication Instructions Recorded Confirmed Type Excedrin Migraine 2 tablet PO Q4-6H PRN 09/18/20 06/08/21 History Jardiance 10 mg PO DAILY 09/18/20 06/08/21 History Vitamin D3 100 mcg PO HS 09/18/20 06/08/21 History albuterol sulfate 2 puff INHALATION QID PRN 09/18/20 06/08/21 History amitriptyline 75 mg PO HS 09/18/20 06/08/21 History aspirin 325 mg PO DAILY 09/18/20 06/08/21 History atorvastatin 80 mg PO DAILY 09/18/20 06/08/21 History black cohosh 540 mg PO HS 09/18/20 06/08/21 History bupropion HCl 450 mg PO DAILY 09/18/20 06/08/21 History calcium-vitamin D2 1 cap PO BID 09/18/20 06/08/21 History fluticasone propionate 1 spray INTRANASAL BID 09/18/20 06/08/21 History gabapentin 1,200 mg PO BID 09/18/20 06/08/21 History glipizide 10 mg PO BID 09/18/20 06/08/21 History loratadine 10 mg PO DAILY 09/18/20 06/08/21 History losartan 25 mg PO DAILY 09/18/20 06/08/21 History melatonin 20 mg PO HS PRN 09/18/20 06/08/21 History multivit with min-folic acid 1 tablet PO DAILY 09/18/20 06/08/21 History [Adult One Daily Multivitamin] pioglitazone [Actos] 30 mg PO DAILY 09/18/20 06/08/21 History potassium chloride 20 meq PO BID 09/18/20 06/08/21 History vitamin B complex [B 1 tablet PO HS 09/18/20 06/08/21 History Complex-Vitamin B12] hbcbiyusbg-kjbhjal-yjatrbge 1 tablet PO Q4H PRN 06/08/21 06/08/21 History [Fiorinal] fluticasone propion-salmeterol 1 inh INHALATION BID 06/08/21 06/08/21 History [Advair Diskus] ga
[2021-06-14] VITALS (29 sets, daily range): BP systolic 138–154; BP diastolic 70–102; PULSE 67–90; RESP 12–28; TEMP 36.1–36.9; O2SAT 89–99; BMI 44.8
[2021-06-14] MEDS: ACETAMINOPHEN 500 MG TABLET 1000 MG PO (06:35)
--- NOTE | 2021-06-14 07:06 | WPDHPUPDATE1 ---
History and Physical Update Update Date/Time: 06/14/21 07:06 History and Physical has been reviewed, including an updated exam of the patient. There are NO changes in the patient's condition. Risks, benefits, and alternatives have been discussed and questions answered. Patient agrees to proceed with procedure.
--- NOTE | 2021-06-14 07:53 | WPDANESEPPF ---
Anes - Initial Pre Proc Eval Procedure: Operation Date: 06/14/21 08:15 Proposed Procedures p Image Guided Bilateral Maxillary Antrostomy, Total Ethmoidectomy, Sphenoidotomy, Frontal Sinusotomy, Bilateral Inferior Turbinectomy, - Gerber Soto MD s Septoplasty - Gerber Soto MD Date/Time: 06/14/21 07:53 Surgeon: Gerber Soto MD Pre Op Diagnosis: chronic sinusitis Patient Data Age: 55 Gender: F Height: 1.6 m Weight: 115.1 kg Allergies Allergy/AdvReac Type Severity Reaction Status Date / Time codeine Allergy Vomiting Verified 06/14/21 06:30 furosemide [From Lasix] Allergy Rash Verified 06/14/21 06:30 metformin AdvReac Severe Diarrhea Verified 06/14/21 06:30 hydrocodone AdvReac Itching Verified 06/14/21 06:30 sertraline [From Zoloft] AdvReac Diarrhea Verified 06/14/21 06:30 tramadol AdvReac Nausea and Verified 06/14/21 06:30 Vomiting Home Medications Medication Instructions Recorded Confirmed Type Excedrin Migraine 2 tablet PO Q4-6H PRN 09/18/20 06/14/21 History Jardiance 10 mg PO DAILY 09/18/20 06/14/21 History Vitamin D3 100 mcg PO HS 09/18/20 06/14/21 History albuterol sulfate 2 puff INHALATION QID PRN 09/18/20 06/14/21 History amitriptyline 75 mg PO HS 09/18/20 06/14/21 History aspirin 325 mg PO DAILY 09/18/20 06/14/21 History atorvastatin 80 mg PO DAILY 09/18/20 06/14/21 History black cohosh 540 mg PO HS 09/18/20 06/14/21 History bupropion HCl 450 mg PO DAILY 09/18/20 06/14/21 History calcium-vitamin D2 1 cap PO BID 09/18/20 06/14/21 History fluticasone propionate 1 spray INTRANASAL BID 09/18/20 06/14/21 History gabapentin 1,200 mg PO BID 09/18/20 06/14/21 History glipizide 10 mg PO BID 09/18/20 06/14/21 History loratadine 10 mg PO DAILY 09/18/20 06/14/21 History losartan 25 mg PO DAILY 09/18/20 06/14/21 History melatonin 20 mg PO HS PRN 09/18/20 06/14/21 History multivit with min-folic acid 1 tablet PO DAILY 09/18/20 06/14/21 History [Adult One Daily Multivitamin] pioglitazone [Actos] 30 mg PO DAILY 09/18/20 06/14/21 History potassium chloride 20 meq PO BID 09/18/20 06/14/21 History vitamin B complex [B 1 tablet PO HS 09/18/20 06/14/21 History Complex-Vitamin B12] xfkxmmedei-mhavfry-sbzyccxg 1 tablet PO Q4H PRN 06/08/21 06/14/21 History [Fiorinal] fluticasone propion-salmeterol 1 inh INHALATION BID 06/08/21 06/14/21 History [Advair Diskus] galcanezumab-gnlm [Emgality Pen] 120 mg SUBCUT MONTHLY 06/08/21 06/14/21 History hydrochlorothiazide 25 mg PO DAILY 06/08/21 06/14/21 History omega-3 fatty acids [Fish Oil] 1,000 mg PO DAILY 06/08/21 06/14/21 History omeprazole 20 mg PO DAILY 06/08/21 06/14/21 History tiotropium bromide [Spiriva 1 puff INHALATION DAILY 06/08/21 06/14/21 History Respimat] zolpidem [Ambien] 5 mg PO HS PRN 06/08/21 06/14/21 History Patient hx anesthesia problems: other (slow to awaken) Family hx anesthesia problems: none Results Review: All pre-operative results and documents have been reviewed as part of the pre-operative evaluation. [facility] Past Medical History Medical History Asthma Chronic depression Chronic migraine Chronic neuropathic pain Chronic right shoulder pain COPD (chronic obstructive pulmonary disease) De Quervain's tenosynovitis Ductal carcinoma of right breast HTN (hypertension) Hypercholesterolemia Hyperthyroidism Hypomagnesemia Insomnia Neuropathy Numbness and tingling Obstructive sleep apnea syndrome, moderate Type 2 diabetes mellitus Vitamin B12 deficiency Surgical History Surgical History H/O mastectomy History of bilateral breast reduction surgery History of tonsillectomy Family History Family History Father Cancer Hypertension Mother Asthma Cancer Hypertension Depression Heart disease Cerebrovascular accident Thyroid disorder Sibling Alcohol
[2021-06-14] MEDS: LACTATED RINGERS 1,000 ML 30 ML IV CONT ×2 (08:03→11:27)
[2021-06-14] MEDS: ceFAZolin 2 GM/D5W 50 ML 2 GM/50 ML BAG IVPB (08:55)
[2021-06-14] MEDS: OXYMETAZOLINE HCL 0.05% NAS 15 ML BTL (*BKC) 1 SPRAY NASAL (10:40)
[2021-06-14] MEDS: LIDO 1%/EPINEPHRINE 1:100,000 50 ML VIAL INFILTRATE (11:17)
--- NOTE | 2021-06-14 11:48 | W.PM.PROC2 ---
Procedure Note - Detailed Date of Procedure 06/14/21 Pre-op Diagnosis chronic sinusitis, nasal polyps, deviated nasal septum, inferior turbinate hypertrophy, right-sided silent sinus syndrome, nasal congestion, nasal obstruction Post-op Diagnosis same Procedure Performed 1. Bilateral endoscopic image guided maxillary antrostomies 2. Bilateral endoscopic image guided total ethmoidectomies 3. Bilateral image guided endoscopic sphenoidotomies 4. Bilateral image guided frontal sinusotomies 5. Endoscopic assisted septoplasty 6. Inferior turbinate reduction submucosally with outfracture Surgeon Gerber Soto MD Sandblasting Supervisor None Anesthesia general Indications See above Findings Severely rightward deviated nasal septum right-sided perforation the severely silent small right-sided maxillary sinus polyps throughout the left ethmoid cavity biopsied and sent for pathology narrowed frontal outflow tracts bilaterally. Description of Procedure Patient correctly identified consent verified preoperative holding area. Patient brought to the operating room time-out performed. General anesthesia induced. Image guidance initiated. Time-out performed. Patient prepped and draped for the aforementioned procedure. Afrin-soaked pledgets placed let sit for 5 minutes. Second time-out performed. 0 degree endoscope utilized. Polypoid tissue biopsied and sent for pathology from the left middle turbinate. Middle turbinate medialized with [place]. Double ball tip probe utilized to enter the maxillary sinus. Backbiter straight through cut microdebrider utilized to perform a wide left-sided maxillary antrostomy. Kerrison as well as microdebrider and image guided suctions utilized perform total ethmoidectomy all partitions removed. Of note the orbits were more medial than expected they were not violated. Sphenoid entered with [place] as well as 1 [place]ison left side was small compared to right. Afrin-soaked pledgets placed in removed 70 degree scope utilized to perform frontal sinus frontal sinusotomy with a combination of frontal sinus instruments including Cobra Hosemann and draft instruments. The exact same procedures were performed on the right sinuses the only findings that were different where there was decreased amount of polypoid tissue on the right and the right maxillary sinus and uncinate were plastered to the orbit patient had a severely silent severely hypo trick hypotrophic right maxillary sinus. Again the orbit was well protected and not violated. Prior to the right sinus surgery a Alpesh incision was made on the left side of the septum after 10 cc of 1% local with 1 100,000 parts epinephrine were injected in the bilateral nasal septum in the submucoperichondrial plane. Cornfields incision performed with 15 blade. Left-sided mucoperichondrial flap elevated with 7 Yoruba suction, no perforation crossed over with osteotome elongated perforation on the right side no tissue loss. Deviated septum removed combination of Javier forceps Marcel Manley forceps osteotome. Inferior turbinate put inferior turbinate blade placed 2.9 mm. A inferior turbinates injected anteriorly bilaterally with 1 cc of 100 will 1% lidocaine 1 100,000 parts epinephrine. He debrided the submucosal plane using microdebrider with 2.9 mm blade outfracture with a [place] elevator mulberry tip was cauterized with Bovie suction electrocautery. Cornfields incision closed on the left septum with 5 interrupted 5 0 fast gut sutures. Agosto splints trimmed Nova pack placed in the bilateral middle meati I bilateral nasal passages suction of the posterior choana. Agosto splints placed and sutured anteriorly using a mattressed 3-0 nylon suture. There were no immediate complications. Blood loss 50 cc. I performed all dictated portions of the procedure. Care the patient was turned over to Anesthesiology. Estimated Blood Loss 50 Drains No Packing Yes Pathology yes Complications No immediate complications Condition s
[2021-06-14 11:54] LABS: Glucose Point of Care 238 mg/dl (65-105)
[2021-06-14] MEDS: KETOROLAC 15 MG/ML VIAL (*BKC) IV PUSH ×2 (12:40→13:06)
--- NOTE | 2021-06-14 12:56 | SUR.PHASEI ---
1220- SPOKE WITH DR. LUZ AND DR. DANIELS ABOUT PT PAIN AND RLS. PT HAS MANY ALLERGIES AND REFUSED FENTANYL, STATED SHE DOES NOT TOLERATE. ORDERED TORADOL FOR PT IVP. MD TORRES'ED. PT UP TO RECLINER ON PACU. PT STATED THROAT HURTS. TOLERATING ICE CHIPS.
--- NOTE | 2021-06-14 14:26 | SUR.PHASEI ---
1400- SPOKE WITH DR. LUZ AND DR. HENRQIUEZ. DISCUSSED OXYGEN LEVELS DROPPING ON ROOM AIR TO 83%. PT DOES HAVE SLEEP APENA. PT RESTING IN RECLINER. DR. LUZ STATED SHE CAN GO OVER TO OUT PT RECOVERY ON O2. AND USE THE IS. DR. HENRIQUEZ STATED TO LET PT REST FROM A COUPLE OF HOURS TO SEE IF SHE CAN COME OFF OXYGEN AND GO HOME.
--- NOTE | 2021-06-14 15:00 | SUR.PHASEII ---
Patient refusing further blood pressures, complaining of neuropathy pain in left arm.
--- NOTE | 2021-06-14 15:45 | SUR.PHASEII ---
Patient O2 sats dropping to 79% on room air when taking a drink of water. Updated Dr. Metz and Dr. Soto on patient's inability to maintain adequate O2 sats on room air.
--- NOTE | 2021-06-14 21:17 | ADMGEN ---
This patient, Ofelia Hayward, was admitted to Medical Room 345-01. Patient/family oriented to hospital policies and general routines including ID bracelet, bed and alarms, visiting hours, pain management, procedures, bathroom and other care routines, personal items, smoking policy, room service/diet, and visiting hours. Information on how to activate the Rapid Response Team has been discussed. Patient/Family are encouraged to report perceived risks to care and to ask questions if they do not understand what they are told or what they should do.
[2021-06-14] MEDS: GABAPENTIN 400 MG CAPSULE 1200 MG PO (21:32)
[2021-06-14] MEDS: AMITRIPTYLINE HCL 25 MG TABLET 75 MG PO (21:32)
[2021-06-14] MEDS: POTASSIUM CHLORIDE 10 MEQ TABLET.ER 20 MEQ PO (21:32)
[2021-06-14] MEDS: MELATONIN 5 MG TABLET 20 MG PO (21:40)
[2021-06-14] MEDS: ZOLPIDEM TARTRATE (*CRX) 5 MG TABLET PO (21:40)
[2021-06-14 22:18] LABS: Glucose Point of Care 207 mg/dl (65-105)
--- NOTE | 2021-06-15 00:51 | PM.IMCN ---
Assessment and Plan Assessment and plan (1) S/P nasal surgery: Code(s): Z98.890 - Other specified postprocedural states Status: Acute Assessment and Plan: postop care per Dr. Villavicencio. The patient's nasal packing is dry and intact. (2) COPD (chronic obstructive pulmonary disease): Code(s): J44.9 - Chronic obstructive pulmonary disease, unspecified Status: Acute Assessment and Plan: Continue with her home inhalers. (3) Asthma: Code(s): J45.909 - Unspecified asthma, uncomplicated Status: Acute Assessment and Plan: continue with home inhalers. (4) Type 2 diabetes mellitus: Code(s): E11.9 - Type 2 diabetes mellitus without complications Status: Acute Assessment and Plan: Accu-Cheks AC and HS. Sliding scale insulin. (5) Chronic depression: Code(s): F32.9 - Major depressive disorder, single episode, unspecified Status: Chronic Assessment and Plan: Continue with her home medication. (6) HTN (hypertension): Code(s): I10 - Essential (primary) hypertension Status: Chronic Assessment and Plan: It looks like patient is on hydrochlorothiazide and has been continued. (7) Hypercholesterolemia: Code(s): E78.00 - Pure hypercholesterolemia, unspecified Status: Chronic Assessment and Plan: Her atorvastatin is currently on hold. HPI Data of Consult Consult date: 06/14/21 Requesting Physician: Gerber Soto MD Primary Care Provider: Ella Weston MD Consult Narrative Narrative: Ofelia Hayward is a 55 year old female this is a 55-year-old female patient who has been seen for decades of facial pain and pressure difficulty breathing with nasal obstruction and congestion. She had a recent CT of the head that demonstrates bilateral near peritoneal ascites as well as right septal deviation. The patient was using Flonase without any relief. The patient underwent surgery today. Bilateral endoscopic image guided maxillary antrostomies 2. Bilateral endoscopic image guided total ethmoidectomies 3. Bilateral image guided endoscopic sphenoidotomies 4. Bilateral image guided frontal sinusotomies 5. Endoscopic assisted septoplasty 6. Inferior turbinate reduction submucosally with outfracture per Dr. Villavicencio today. The patient has nasal packing intact. the patient does have obstructive sleep apnea. Patient was admitted to Dr. Villavicencio S same-day surgery. I think him for the opportunity to consult on this patient on the date of service of 06/14/2021 Review of Systems Review of Systems: All systems reviewed & are unremarkable except as noted in HPI and below Constitutional: Constitutional: Reports as per HPI and Reports no additional constitutional complaints Eyes: Eyes: Reports as per HPI and Reports no additional eye complaints ENT: Reports system reviewed and no additional complaints, except as documented and Reports Normal hearing present Cardiovascular: Cardiovascular: Reports no additional cardiovascular complaints Respiratory: Respiratory: Reports no additional respiratory complaints and Reports no additional respiratory complaints Gastrointestinal: Gastrointestinal: Reports as per HPI and Reports no additional gastrointestinal complaints Musculoskeletal: Musculoskeletal: Reports no additional musculoskeletal complaints Integumentary/Breasts: Skin/Breast: Reports system reviewed and no additional complaints, except as docu and Reports as per HPI Neurologic: Reports system reviewed and no additional complaints, except as documented, Reports as per HPI and Reports Normal hearing present Psychiatric: Psychiatric: Reports no additional psychiatric complaints and Reports as per HPI Endocrine: Endocrine: Reports no additional endocrine complaints Hematologic/Lymphatic: Hematologic/Lymphatic: Reports no additional hematologic/lymphatic complaints Allergic/Immunologic: Allergic/Immunologic: Reports
[2021-06-15] MEDS: IBUPROFEN 200 MG TABLET PO ×2 (05:22→12:08)
[2021-06-15 05:37] VITALS: BP 111/71; PULSE 83; RESP 18; TEMP 36.7; O2SAT 95
[2021-06-15 06:14] LABS: Basophils Absolute Auto 0.1 K/mm3 (0.0-0.1); Basophils Percent Auto 0.5 % (0.2-1.2); Eosinophils Absolute Auto 0.1 K/mm3 (0-0.3); Eosinophils Percent Auto 0.9 % (0-4.4); Hemoglobin 12.7 g/dL (12.0-15.0); Immature Granulocyte Absolute 0.03 K/mm3 (0.00-0.031); Immature Granulocyte Percent A 0.3 % (0-0.5); Lymphocytes Absolute Auto 3.65 K/mm3 (0.9-3.2); Mean Corpuscular HGB Conc 32.6 g/dl (32-36); Mean Corpuscular Hemoglobin 31.3 pg (26-34); Mean Corpuscular Volume 96.1 fl (80-100); Mean Platelet Volume 10.3 fl (7.4-10.4); Monocytes Percent Auto 8.7 % (2.6-8.5); Neutrophils Absolute Auto 6.9 K/mm3 (1.3-6.7); Neutrophils Percent Auto 58.6 % (45.5-73.1); Platelet Count Result 222 k/mm3 (150-375); Red Blood Count 4.06 M/mm3 (4.2-5.4); Red Cell Distribution Width 14.4 % (11.5-14.5); White Blood Count 11.8 K/mm3 (4.5-10.0)
[2021-06-15 06:17] LABS: Lactic Acid Reflex 1.3 mmol/L (0.7-2.1)
[2021-06-15 06:23] LABS: Alanine Aminotransferase 20 U/L (4-35); Albumin Level 3.8 g/dL (3.5-5.1); Alkaline Phosphatase 94 U/L (38-126); Anion Gap 4 mmol/L (8-16); Aspartate Amino Transferase 24 U/L (14-36); Bilirubin,Total 0.6 mg/dL (0.2-1.3); Blood Urea Nitrogen 29 mg/dL (7-17); Calcium 9.6 mg/dL (8.4-10.2); Carbon Dioxide 34 mmol/L (22-30); Chloride 101 mmol/L (98-107); Estimated CRCL calculation 94 ml/min; Estimated Glomerular Filt Rate > 60; Glucose 151 mg/dL (65-110); Potassium 3.8 mmol/L (3.4-5.0); Sodium 139 mmol/L (137-145)
[2021-06-15 07:10] LABS: Thyroid Stimulating Hormone Reflex 0.352 uIU/mL (0.465-4.68)
[2021-06-15 07:57] LABS: Glucose Point of Care 147 mg/dl (65-105)
[2021-06-15 08:02] LABS: Free T4 Free Thyroxine Reflex 1.23 ng/dL (0.78-2.19)
--- NOTE | 2021-06-15 08:03 | WPDANESPN ---
Anes - Prog Note Post-Op Date/Time: 06/15/21 08:03 Cardiovascular status: normal Respiratory status: normal Airway patency: baseline Mental status: baseline Post-Op hydration status: normal Vital Signs: Last Vital Signs Temp 36.7 C 06/15/21 05:37 Pulse 83 06/15/21 05:37 Resp 18 06/15/21 05:37 BP 111/71 06/15/21 05:37 Pulse Ox 95 06/15/21 05:37 Pain Score (VAS): 3 I/O: Intake & Output 06/14/21 06/15/21 06/15/21 23:59 07:59 15:59 Intake Total 50 Output Total 300 Balance 50 -300 Laboratory Tests 06/15/21 05:48 06/15/21 05:48 06/14/21 06/14/21 06/15/21 11:51 22:15 05:48 WBC 11.8 H RBC 4.06 L Hgb 12.7 Hct 39.0 MCV 96.1 MCH 31.3 MCHC 32.6 RDW 14.4 Plt Count 222 MPV 10.3 Immature Gran % (Auto) 0.3 Neut % (Auto) 58.6 Lymph % (Auto) 31.0 [place] % (Auto) 8.7 H Eos % (Auto) 0.9 Baso % (Auto) 0.5 Lymph # (Auto) 3.65 H [place] # (Auto) 1.0 H Eos # (Auto) 0.1 Baso # (Auto) 0.1 Abs Immat Gran (auto) 0.03 Absolute Neuts (auto) 6.9 H Absolute Nucleated RBC 0.0 Nucleated RBC % 0.0 Sodium Potassium Chloride Carbon Dioxide Anion Gap BUN Creatinine Estim Creat Clear Calc Estimated GFR Glucose POC Capillary Glucose 238 H 207 H Lactic Acid Calcium Magnesium Total Bilirubin AST ALT Alkaline Phosphatase Total Protein Albumin TSH (Reflex) Free T4 Total T3 06/15/21 06/15/21 06/15/21 05:48 05:48 05:48 WBC RBC Hgb Hct MCV MCH MCHC RDW Plt Count MPV Immature Gran % (Auto) Neut % (Auto) Lymph % (Auto) [place] % (Auto) Eos % (Auto) Baso % (Auto) Lymph # (Auto) [place] # (Auto) Eos # (Auto) Baso # (Auto) Abs Immat Gran (auto) Absolute Neuts (auto) Absolute Nucleated RBC Nucleated RBC % Sodium 139 Potassium 3.8 Chloride 101 Carbon Dioxide 34 H Anion Gap 4 L BUN 29 H Creatinine 0.70 Estim Creat Clear Calc 94 Estimated GFR > 60 Glucose 151 H POC Capillary Glucose Lactic Acid 1.3 Calcium 9.6 Magnesium 2.0 Total Bilirubin 0.6 AST 24 ALT 20 Alkaline Phosphatase 94 Total Protein 6.0 L Albumin 3.8 TSH (Reflex) 0.352 L Free T4 Total T3 06/15/21 06/15/21 06/15/21 05:48 05:48 07:55 WBC RBC Hgb Hct MCV MCH MCHC RDW Plt Count MPV Immature Gran % (Auto) Neut % (Auto) Lymph % (Auto) [place] % (Auto) Eos % (Auto) Baso % (Auto) Lymph # (Auto) [place] # (Auto) Eos # (Auto) Baso # (Auto) Abs Immat Gran (auto) Absolute Neuts (auto) Absolute Nucleated RBC Nucleated RBC % Sodium Potassium Chloride Carbon Dioxide Anion Gap BUN Creatinine Estim Creat Clear Calc Estimated GFR Glucose POC Capillary Glucose 147 H Lactic Acid Calcium Magnesium Total Bilirubin AST ALT Alkaline Phosphatase Total Protein Albumin TSH (Reflex) Free T4 1.23 Total T3 Pending Post-procedural complaints: none Patient Feedback: Patient satisfied with anesthetic care.
[2021-06-15] MEDS: PANTOPRAZOLE 40 MG TABLET PO (08:09)
[2021-06-15] MEDS: buPROPion HCL SR (12 HR) 150 MG TAB 450 MG PO (08:09)
[2021-06-15] MEDS: hydroCHLOROthiazide 25 MG TABLET PO (08:09)
[2021-06-15] MEDS: POTASSIUM CHLORIDE 10 MEQ TABLET.ER 20 MEQ PO (08:09)
[2021-06-15] MEDS: GABAPENTIN 400 MG CAPSULE 1200 MG PO (08:09)
[2021-06-15 09:36] VITALS: O2SAT 94
[2021-06-15] MEDS: FLUTICASONE/SALMETEROL 115-21 MCG INHALER 1 PUFF 2 PUFF INHALATION (09:36)
[2021-06-15] MEDS: UMECLIDINIUM BROMIDE 62.5 MCG ELLIPTA 1 PUFF INHALATION (09:36)
[2021-06-15 11:55] LABS: Glucose Point of Care 163 mg/dl (65-105)
--- NOTE | 2021-06-15 12:07 | PM.IMPN ---
Progress Note: A&P Assessment and Plan (1) S/P nasal surgery: Code(s): Z98.890 - Other specified postprocedural states Status: Acute Assessment and Plan: postop care per Dr. Soto. The patient's nasal packing is dry and intact. (2) COPD (chronic obstructive pulmonary disease): Code(s): J44.9 - Chronic obstructive pulmonary disease, unspecified Status: Acute Assessment and Plan: Lungs are clear without any signs of acute exacerbation. Resting comfortably on room air at this time. Continue with her home inhalers. (3) Asthma: Code(s): J45.909 - Unspecified asthma, uncomplicated Status: Acute Assessment and Plan: Lungs are clear without any signs of acute exacerbation. Resting comfortably on room air at this time. continue with home inhalers. (4) Type 2 diabetes mellitus: Code(s): E11.9 - Type 2 diabetes mellitus without complications Status: Acute Assessment and Plan: Glucose has been well controlled at the 150s to 160s. Continue her home medications. (5) Chronic depression: Code(s): F32.9 - Major depressive disorder, single episode, unspecified Status: Chronic Assessment and Plan: Continue with her home medication. (6) HTN (hypertension): Code(s): I10 - Essential (primary) hypertension Status: Chronic Assessment and Plan: Blood pressure 111/71 this morning. Well controlled. Continue her home meds. (7) Hypercholesterolemia: Code(s): E78.00 - Pure hypercholesterolemia, unspecified Status: Chronic Assessment and Plan: Continue home medications. Time Spent With Patient Time with patient: 25 - 35 minutes Subjective Date/time seen: 06/15/21 12:07 Interval history: Date of service 06/15/2021: Patient reports feeling well today other than a headache and irritation to her nose and cheek from the tape. She denies any shortness of breath, wheezing, cough since her procedure. She does have a history of COPD, asthma and sleep apnea. She is feeling at her baseline at this time without chest pain, fever, chills, nausea, vomiting, abdominal pain, leg swelling, calf pain, or any other symptoms at this time. Review of Systems Review of Systems: All systems reviewed & are unremarkable except as noted in HPI and below Exam Narrative: General: 55-year-old woman sitting up in bed receiving her lunch tray. Appears comfortable. In no acute distress. HEENT: Gauze over nare openings taped to her cheeks without any signs of bleeding. Skin: No jaundice or cyanosis. Good skin turgor. Neck: Full range of motion. Supple. Respiratory: Lungs are clear to auscultation bilaterally. No bony chest wall tenderness. Cardiovascular: The heart has a regular rate and rhythm without murmur. No carotid bruits. Lower extremities: No lower extremity edema. Distal pulses are easily palpated. No calf tenderness to palpation. Gastrointestinal: The abdomen is soft, nontender and nondistended with active bowel sounds. Psychiatric: Lucid and oriented. Memory intact. Neurologic: No focal deficits. Speech is clear. No facial drooping. Objective Data Vital Signs Vital Signs: Vital Signs - 24 hr 06/14/21 12:11 06/14/21 12:26 06/14/21 12:41 Temperature Pulse Rate 74 90 88 Respiratory Rate 17 20 26 H Blood Pressure 150/88 H 154/86 H 148/102 H Pulse Oximetry 93 93 97 06/14/21 12:56 06/14/21 13:11 06/14/21 13:26 Temperature Pulse Rate 86 84 80 Respiratory Rate 24 H 22 H 28 H Blood Pressure Pulse Oximetry 91 95 93 06/14/21 13:41 06/14/21 13:56 06/14/21 14:11 Temperature Pulse Rate 84 87 88 Respiratory Rate 16 15 13 Blood Pressure Pulse Oximetry 95 94 94 06/14/21 14:26 06/14/21 14:39 06/14/21 14:40 Temperature 98.4 F Pulse Rate 90 83 Respiratory Rate 17 18 Blood Pressure 141/88 H 152/87 H Pulse Oximetry 94 96 89 L 06/14/21 14:42 11
[2021-06-15 13:31] LABS: Total Triiodothyronine (T3) 1.31 NG/ML (0.97-1.69)
[2021-06-15 14:00] VITALS: BP 130/64; PULSE 83; RESP 16; TEMP 36.3; O2SAT 94
[2021-06-15 16:37] LABS: Glucose Point of Care 208 mg/dl (65-105)
== END 2021-06-15 16:05 | disposition home or self-care (01) ==
LOC: ANHSURGERY 11:48 → ANH3MED 19:23
PROVIDERS: Nurse Practitioner; PCP Family Medicine; Visit Provider Otolaryngology
PROC: (CPT 31256; principal; 2021-06-14 08:15)
PROC: (CPT 30520; 2021-06-14 08:15)
DX: J32.9 Chronic sinusitis, unspecified (principal); J34.2 Deviated nasal septum; J34.3 Hypertrophy of nasal turbinates; R09.81 Nasal congestion; J34.89 Other specified disorders of nose and nasal sinuses; J33.8 Other polyp of sinus; J44.9 Chronic obstructive pulmonary disease, unspecified; I10 Essential (primary) hypertension; E11.40 Type 2 diabetes mellitus with diabetic neuropathy, unspecified; E78.00 Pure hypercholesterolemia, unspecified; E53.8 Deficiency of other specified B group vitamins; F32.9 Major depressive disorder, single episode, unspecified; Z79.51 Long term (current) use of inhaled steroids; Z79.82 Long term (current) use of aspirin; Z79.84 Long term (current) use of oral hypoglycemic drugs; Z85.3 Personal history of malignant neoplasm of breast; Z87.891 Personal history of nicotine dependence; E66.01 Morbid (severe) obesity due to excess calories; Z68.41 Body mass index [BMI] 40.0-44.9, adult
CPT/HCPCS: 31256; 31257; 61782; 30520; 30140; 36415; 80053; 82948; 83605; 83735; 84439; 84443; 84480; 85025; 88304; 88305; 94640; A9270; J0330; J0690; J1100; J1885; J2405; J2704; J3010; J7120

== ENCOUNTER 2021-06-30 01:04 | Day surgery (SDC) | payer OTHER, SELFPAY ==
--- NOTE | 2021-06-15 00:42 | PM.IMCN ---
HPI Data of Consult Consult date: 06/15/21 Requesting Physician: Gerber Soto Primary Care Provider: Ella Weston MD Consult Narrative Narrative: Ofelia Hayward is a 55 year old female this is a 55-year-old female patient who has been seen for decades of facial pain and pressure difficulty breathing with nasal obstruction and congestion. She had a recent CT of the head that demonstrates bilateral near peritoneal ascites as well as right septal deviation. The patient was using Flonase without any relief. The patient underwent surgery today. Bilateral endoscopic image guided maxillary antrostomies 2. Bilateral endoscopic image guided total ethmoidectomies 3. Bilateral image guided endoscopic sphenoidotomies 4. Bilateral image guided frontal sinusotomies 5. Endoscopic assisted septoplasty 6. Inferior turbinate reduction submucosally with outfracture per Dr. Villavicencio today. The patient has nasal packing intact. the patient does have obstructive sleep apnea. Patient was admitted PMF Past Medical History Medical History Asthma Chronic depression Chronic migraine Chronic neuropathic pain Chronic right shoulder pain COPD (chronic obstructive pulmonary disease) De Quervain's tenosynovitis Ductal carcinoma of right breast HTN (hypertension) Hypercholesterolemia Hyperthyroidism Hypomagnesemia Insomnia Neuropathy Numbness and tingling Obstructive sleep apnea syndrome, moderate Type 2 diabetes mellitus Vitamin B12 deficiency Surgical History Surgical History H/O mastectomy History of bilateral breast reduction surgery History of tonsillectomy Family History Family History Father Cancer Hypertension Mother Asthma Cancer Hypertension Depression Heart disease Cerebrovascular accident Thyroid disorder Sibling Alcoholism Cancer Other Asthma Depression Grandparent Diabetes mellitus Hypertension Heart disease Cerebrovascular accident Grandparent Cancer Cerebrovascular accident Social History Social History Smoking packs per day: 1 Smoking cigarettes per day: 20.0 Years smoked: 30 Smoking pack-years: 30.00 Smoking status: Former smoker Tobacco type: cigarettes Second hand tobacco smoke exposure: No Smoking end date: 07/23/06 Alcohol intake: never Substance use: current Substance use type: does not use Living arrangements: alone Gender identity (if verbalized by the patient): Female Spiritual care concerns: No Meds Home Medications and Allergies Home Medications Medication Instructions Recorded Confirmed Type Excedrin Migraine 2 tablet PO Q4-6H PRN 09/18/20 06/14/21 History Jardiance 10 mg PO DAILY 09/18/20 06/14/21 History Vitamin D3 100 mcg PO HS 09/18/20 06/14/21 History albuterol sulfate 2 puff INHALATION QID PRN 09/18/20 06/14/21 History amitriptyline 75 mg PO HS 09/18/20 06/14/21 History aspirin 325 mg PO DAILY 09/18/20 06/14/21 History atorvastatin 80 mg PO DAILY 09/18/20 06/14/21 History black cohosh 540 mg PO HS 09/18/20 06/14/21 History bupropion HCl 450 mg PO DAILY 09/18/20 06/14/21 History calcium-vitamin D2 1 cap PO BID 09/18/20 06/14/21 History fluticasone propionate 1 spray INTRANASAL BID 09/18/20 06/14/21 History gabapentin 1,200 mg PO BID 09/18/20 06/14/21 History glipizide 10 mg PO BID 09/18/20 06/14/21 History loratadine 10 mg PO DAILY 09/18/20 06/14/21 History losartan 25 mg PO DAILY 09/18/20 06/14/21 History melatonin 20 mg PO HS PRN 09/18/20 06/14/21 History multivit with min-folic acid 1 tablet PO DAILY 09/18/20 06/14/21 History [Adult One Daily Multivitamin] pioglitazone [Actos] 30 mg PO DAILY 09/18/20 06/14/21 History potassium chloride 20 meq PO BID 09/18/20 06/14/21 History vitamin B complex [B 1 tablet PO
[2021-06-23 15:55] VITALS: BMI 44.1
[2021-06-30] MEDS: LACTATED RINGERS 1,000 ML 150 ML IV CONT (12:01)
[2021-06-30 12:02] VITALS: BP 139/83; PULSE 104; RESP 20; TEMP 36.1; O2SAT 94; BMI 44.4
--- NOTE | 2021-06-30 12:03 | WPDGICN ---
Assessment and Plan Assessment and plan (1) Family history of colonic polyps: Code(s): Z83.71 - Family history of colonic polyps Status: Acute Assessment and Plan: Patient presents today for screening colonoscopy because of age. Her family history is significant both mother and sister have had colon polyps. Plan is for surveillance colonoscopy now and consider this a 5 year intervals in the future. GI Consult Note Consult date/time: 06/30/21 12:03 HPI: Ofelia Hayward is a 55 year old female Presents for screening colonoscopy. Patient reports that her own weight appetite and bowel movements are normal. She denies abdominal pain. She has had no bleeding. Family history is significant that her mother and sister have had colon polyps. Patient's own past medical history is significant for breast cancer. Review of Systems Review of Systems: All systems reviewed & are unremarkable except as noted in HPI and below PMFSH Past Medical History Medical History Asthma Chronic depression Chronic migraine Chronic neuropathic pain Chronic right shoulder pain COPD (chronic obstructive pulmonary disease) De Quervain's tenosynovitis Ductal carcinoma of right breast History of breast cancer with bilateral mastectomy and radiation HTN (hypertension) Hypercholesterolemia Hyperthyroidism Hypomagnesemia Insomnia Neuropathy Numbness and tingling Obstructive sleep apnea syndrome, moderate Type 2 diabetes mellitus Vitamin B12 deficiency Surgical History Surgical History H/O mastectomy History of bilateral breast reduction surgery History of tonsillectomy S/P nasal surgery 06/14/2021 Bilateral endoscopic image guided maxillary antrostomies 2. Bilateral endoscopic image guided total ethmoidectomies 3. Bilateral image guided endoscopic sphenoidotomies 4. Bilateral image guided frontal sinusotomies 5. Endoscopic assisted septoplasty 6. 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. She has 2 children Which her daughters. She is a former smoker. The patient is listed as being single. the patient denies any alcohol marijuana or illicit drugs. She does not have a durable power kiln car unloader for healthcare. Code status full code Smoking packs per day: 1.5 Smoking cigarettes per day: 30.0 Years smoked: 30 Smoking pack-years: 45.00 Smoking status: Former smoker Tobacco type: cigarettes Second hand tobacco smoke exposure: No Smoking end date: 07/23/06 Alcohol intake: never Substance use: never Substance use type: does not use Living arrangements: with family Gender identity (if verbalized by the patient): Female Spiritual care concerns: No Meds Home Medications and Allergies Home Medications Medication Instructions Recorded Confirmed Type Excedrin Migraine 2 tablet PO Q4-6H PRN 09/18/20 06/23/21 History Jardiance 25 mg PO DAILY 09/18/20 06/23/21 History albuterol sulfate 2 puff INHALATION QID PRN 09/18/20 06/23/21 History amitriptyline 75 mg PO HS 09/18/20 06/23/21 History aspirin 325 mg PO DAILY 09/18/20 06/23/21 History atorvastatin 80 mg PO DAILY 09/18/20 06/23/21 History black cohosh 540 mg PO HS 09/18/20 06/23/21 History bupropion HCl 450 mg PO DAILY 09/18/20
[2021-06-30 12:08] LABS: Glucose Point of Care 148 mg/dl (65-105)
--- NOTE | 2021-06-30 12:12 | WPDANESEPPF ---
Anes - Initial Pre Proc Eval Procedure: Operation Date: 06/30/21 13:00 Proposed Procedures p Screening Colonoscopy - Gilson Owens MD Date/Time: 06/30/21 12:12 Surgeon: Gilson Owens MD Pre Op Diagnosis: neoplasm screening Patient Data Age: 55 Gender: F Height: 1.6 m Weight: 113.9 kg Last Vital Signs Temp 36.1 C L 06/30/21 12:02 Pulse 104 H 06/30/21 12:02 Resp 20 06/30/21 12:02 BP 139/83 06/30/21 12:02 Pulse Ox 94 06/30/21 12:02 Allergies Allergy/AdvReac Type Severity Reaction Status Date / Time furosemide [From Lasix] Allergy Severe Hives Verified 06/30/21 11:47 hydrocodone Allergy Severe Hives Verified 06/30/21 11:47 fentanyl AdvReac Severe Other Verified 06/30/21 11:47 metformin AdvReac Severe Diarrhea Verified 06/30/21 11:47 codeine AdvReac Intermediate Vomiting Verified 06/30/21 11:47 sertraline [From Zoloft] AdvReac Intermediate Diarrhea Verified 06/30/21 11:47 tramadol AdvReac Intermediate Nausea and Verified 06/30/21 11:47 Vomiting PLATELET RICH PLASMA AdvReac Severe Other Uncoded 06/30/21 11:47 Home Medications Medication Instructions Recorded Confirmed Type Excedrin Migraine 2 tablet PO Q4-6H PRN 09/18/20 06/23/21 History Jardiance 25 mg PO DAILY 09/18/20 06/23/21 History albuterol sulfate 2 puff INHALATION QID PRN 09/18/20 06/23/21 History amitriptyline 75 mg PO HS 09/18/20 06/23/21 History aspirin 325 mg PO DAILY 09/18/20 06/23/21 History atorvastatin 80 mg PO DAILY 09/18/20 06/23/21 History black cohosh 540 mg PO HS 09/18/20 06/23/21 History bupropion HCl 450 mg PO DAILY 09/18/20 06/23/21 History calcium-vitamin D2 1 cap PO BID 09/18/20 06/23/21 History fluticasone propionate 1 spray INTRANASAL BID 09/18/20 06/23/21 History gabapentin 1,200 mg PO BID 09/18/20 06/23/21 History glipizide 10 mg PO BID 09/18/20 06/23/21 History loratadine 10 mg PO DAILY 09/18/20 06/23/21 History losartan 25 mg PO DAILY 09/18/20 06/23/21 History melatonin 20 mg PO HS PRN 09/18/20 06/23/21 History multivit with min-folic acid 1 tablet PO DAILY 09/18/20 06/23/21 History [Adult One Daily Multivitamin] pioglitazone [Actos] 30 mg PO DAILY 09/18/20 06/23/21 History potassium chloride 20 meq PO BID 09/18/20 06/23/21 History vitamin B complex [B 1 tablet PO HS 09/18/20 06/23/21 History Complex-Vitamin B12] Emgality Pen 120 mg SUBCUT MONTHLY 06/08/21 06/23/21 History Spiriva Respimat 2 puff INHALATION DAILY 06/08/21 06/23/21 History jhlwqpxohg-[id number]-[id number] 1 tablet PO Q4H PRN 06/08/21 06/23/21 History fluticasone propion-salmeterol 1 inh INHALATION BID 06/08/21 06/23/21 History [Advair Diskus] hydrochlorothiazide 25 mg PO DAILY 06/08/21 06/23/21 History omega-3 fatty acids 1,000 mg PO DAILY 06/08/21 06/23/21 History omeprazole 20 mg PO DAILY 06/08/21 06/23/21 History zolpidem [Ambien] 5 mg PO HS PRN 06/08/21 06/23/21 History Jorge 1 cap PO HS 06/23/21 06/23/21 History cholecalciferol (vitamin D3) 25 mcg PO DAILY 06/23/21 06/23/21 History [Vitamin D3] ketorolac 10 mg PO BID PRN 06/23/21 06/23/21 History Laboratory Tests 06/30/21 12:02 POC Capillary Glucose 148 mg/dl H mg/dl (65-105) Patient hx anesthesia problems: none Family hx anesthesia problems: none Results Review: All pre-operative results and documents have been reviewed as part of the pre-operative evaluation. [facility] Past Medical History Medical History Asthma Chronic depression Chronic migraine Chronic neuropathic pain Chronic right shoulder pain COPD (chronic obstructive pulmonary disease) De Quervain's tenosynovitis Ductal carcinoma of right breast History of breast cancer with bilateral mastectomy and radiation HTN (hypertension) Hypercholesterolemia Hyperthyroidism Hypomagnesemia Insomnia Neuropathy Numbness and tingling Obstructive sleep apnea syndrome, moderate Type 2 diabetes mellitus Vitamin B12 deficiency Surgical History
[2021-06-30 12:30] VITALS: BP 99/63; PULSE 93; RESP 18; O2SAT 95
[2021-06-30 12:40] VITALS: BP 126/83; PULSE 91; RESP 22; O2SAT 97
[2021-06-30 12:50] VITALS: BP 130/81; PULSE 88; RESP 18; O2SAT 98
== END 2021-06-30 13:05 | disposition home or self-care (01) ==
PROVIDERS: PCP Family Medicine; Visit Provider Internal Medicine Gastroenterology
PROC: 0DJD8ZZ Inspection of Lower Intestinal Tract, Via Natural or Artificial Opening Endoscopic (ICD-10-PCS; CPT 45378; principal; 2021-06-30 13:00)
DX: Z12.11 Encounter for screening for malignant neoplasm of colon (principal); D12.5 Benign neoplasm of sigmoid colon; K57.30 Diverticulosis of large intestine without perforation or abscess without bleeding; J44.9 Chronic obstructive pulmonary disease, unspecified; I10 Essential (primary) hypertension; E78.00 Pure hypercholesterolemia, unspecified; E05.90 Thyrotoxicosis, unspecified without thyrotoxic crisis or storm; E11.40 Type 2 diabetes mellitus with diabetic neuropathy, unspecified; E53.8 Deficiency of other specified B group vitamins; K64.8 Other hemorrhoids; F32.A Depression, unspecified; G47.33 Obstructive sleep apnea (adult) (pediatric); Z85.3 Personal history of malignant neoplasm of breast; Z83.71 Family history of colonic polyps; Z90.13 Acquired absence of bilateral breasts and nipples; Z92.3 Personal history of irradiation; Z87.891 Personal history of nicotine dependence
CPT/HCPCS: 45385; 82948; 88305; J2001; J2704; J7120

== ENCOUNTER 2021-07-23 20:09 | Outpatient (CLI) | payer OTHER, SELFPAY ==
[2021-07-23 20:34] LABS: Basophils Absolute Auto 0.05 K/mm3 (0.00-0.10); Basophils Percent Auto 0.6 % (0.0-1.0); Eosinophils Absolute Auto 0.31 K/mm3 (0.02-0.50); Eosinophils Percent Auto 3.6 % (1.0-6.0); Hematocrit 46.2 % (35.0-49.0); Hemoglobin 14.7 g/dL (12.0-15.0); Immature Granulocyte Absolute 0.04 K/mm3 (0.00-0.00); Immature Granulocyte Percent A 0.5 % (0.0-0.0); Lymphocytes Absolute Auto 2.41 K/mm3 (1.10-4.50); Lymphocytes Percent Auto 28.3 % (18.0-42.0); Mean Corpuscular HGB Conc 31.8 g/dL (32.0-36.0); Mean Corpuscular Hemoglobin 31.1 pg (27.0-31.0); Mean Corpuscular Volume 97.9 fL (78.0-102.0); Mean Platelet Volume 10.2 fl (9.2-11.8); Monocytes Absolute Auto 0.79 K/mm3 (0.10-0.90); Monocytes Percent Auto 9.3 % (2.0-11.0); Neutrophils Absolute Auto 4.9 K/mm3 (1.7-7.2); Neutrophils Percent Auto 57.7 % (50.0-70.0); Platelet Count Result 259 K/mm3 (150-420); Red Blood Count 4.72 M/mm3 (4.20-5.40); Red Cell Distribution Width 13.7 % (11.6-14.4); White Blood Count 8.5 K/mm3 (4.8-10.8)
[2021-07-23 20:49] LABS: Alanine Aminotransferase 30 U/L (14-59); Albumin Level 3.6 g/dL (3.4-5.0); Alkaline Phosphatase 139 U/L (46-116); Anion Gap 7 mmol/L (8-16); Aspartate Amino Transferase 14 U/L (15-37); Bilirubin,Total 0.3 mg/dL (0.00-1.00); Blood Urea Nitrogen 29 mg/dL (7-18); Calcium 8.8 mg/dL (8.5-10.1); Carbon Dioxide 30 mmol/L (21-32); Chloride 103 mmol/L (98-108); Estimated Glomerular Filt Rate 49; Glucose 163 mg/dL (70-99); Osmolality Calculated 299 mOsm/kg (285-295); Potassium 3.3 mmol/L (3.5-5.1); Sodium 140 mmol/L (136-145); Total Protein 7.1 g/dL (6.4-8.2)
[2021-07-27 11:15] LABS: Hemoglobin A1C 7.9 % (<5.7)
[2021-07-27 21:43] LABS: CA 15-3 24 U/mL (<32)
== END 2021-07-23 20:10 | disposition home or self-care (01) ==
LOC: CHSLAB 20:13
PROVIDERS: PCP Family Medicine; Visit Provider Internal Medicine Hematology & Oncology
DX: C50.411 Malignant neoplasm of upper-outer quadrant of right female breast (principal); Z17.0 Estrogen receptor positive status [ER+]; E11.9 Type 2 diabetes mellitus without complications
CPT/HCPCS: 36415; 80053; 83036; 85025; 86300

== ENCOUNTER 2021-10-24 12:05 | Outpatient (CLI) | payer OTHER, SELFPAY ==
[2021-10-24 12:40] LABS: MALB Creatinine Ratio 15.5 mg/g (0-30); Microalbumin Urine Random < 13.0 mg/L
[2021-10-24 13:12] LABS: Alanine Aminotransferase 27 U/L (14-59); Albumin Level 3.7 g/dL (3.4-5.0); Alkaline Phosphatase 89 U/L (46-116); Anion Gap 8 mmol/L (8-16); Aspartate Amino Transferase 18 U/L (15-37); Bilirubin,Total 0.2 mg/dL (0.00-1.00); Blood Urea Nitrogen 27 mg/dL (7-18); Calcium 8.8 mg/dL (8.5-10.1); Carbon Dioxide 32 mmol/L (21-32); Chloride 104 mmol/L (98-108); Cholesterol 177 mg/dL (0-200); Estimated Glomerular Filt Rate > 60; Free T4 Free Thyroxine 1.04 ng/dL (0.76-1.46); Glucose 115 mg/dL (70-99); HDL Direct 65 mg/dL (40-60); LDL Cholesterol Calculated 87 mg/dL (<130); Osmolality Calculated 304 mOsm/kg (285-295); Potassium 3.7 mmol/L (3.5-5.1); Sodium 144 mmol/L (136-145); Thyroid Stimulating Hormone 1.36 uIU/mL (0.36-3.74); Total Protein 6.4 g/dL (6.4-8.2); Triglycerides 123 mg/dL (0-150)
[2021-10-24 13:18] LABS: Hemoglobin A1C 6.7 % (<5.7)
== END 2021-10-24 12:06 | disposition home or self-care (01) ==
LOC: CHSLAB 12:08
PROVIDERS: PCP Family Medicine; Visit Provider Physician Assistant
DX: E05.90 Thyrotoxicosis, unspecified without thyrotoxic crisis or storm (principal); E11.9 Type 2 diabetes mellitus without complications
CPT/HCPCS: 36415; 80053; 80061; 82043; 83036; 84439; 84443

== ENCOUNTER 2021-11-02 11:15 | Emergency (ER) | payer OTHER, SELFPAY ==
--- NOTE | ~2021-11-02 | XR_ITS ---
EXAMINATION: XR knee RT 3V DATE: 11/02/2021 11:50 INDICATION: Right knee pain. Injury. TECHNIQUE: 3 views of right knee were obtained. COMPARISON: Right knee radiographs 01/25/2018 FINDINGS: Bone alignment is normal. No fracture. There is mild tricompartmental osteoarthritis. No kn ee joint effusion. IMPRESSION: 1. Mild right knee osteoarthritis. Reviewed, dictated and finalized at location A.
[2021-11-02 11:32] VITALS: BP 133/76; PULSE 103; RESP 18; TEMP 36.4; O2SAT 97
--- NOTE | 2021-11-02 11:52 | ED.LOWEXIN ---
HPI - Extremity Injury (Lower) General Chief Complaint: Extremity Injury, Lower Stated Complaint: KNEE PAIN Time Seen by Provider: 11/02/21 11:17 Source: patient and RN notes reviewed Mode of arrival: ambulatory Limitations: no limitations History of Present Illness MD complaint: knee injury Onset (ago): hour(s) (15) Place: home Severity: moderate Severity scale (1-10): 5 Relieving factors: NSAID and immobilization Exacerbating factors: weight bearing and movement Context: other (twisted the right knee, now painful and buckling occasionally.) Associated symptoms: snap/pop sensation Other symptoms: none Treatments prior to arrival: NSAIDS Related Data Home Medications Medication Instructions Recorded Confirmed Excedrin Migraine 2 tablet PO Q4-6H PRN 09/18/20 11/02/21 Jardiance 25 mg PO DAILY 09/18/20 11/02/21 albuterol sulfate 2 puff INHALATION QID PRN 09/18/20 11/02/21 amitriptyline 75 mg PO HS 09/18/20 11/02/21 aspirin 325 mg PO DAILY 09/18/20 11/02/21 atorvastatin 80 mg PO DAILY 09/18/20 11/02/21 black cohosh 540 mg PO HS 09/18/20 11/02/21 bupropion HCl 450 mg PO DAILY 09/18/20 11/02/21 calcium-vitamin D2 1 cap PO BID 09/18/20 11/02/21 gabapentin 1,200 mg PO BID 09/18/20 11/02/21 glipizide 10 mg PO BID 09/18/20 11/02/21 loratadine 10 mg PO DAILY 09/18/20 11/02/21 losartan 25 mg PO DAILY 09/18/20 11/02/21 melatonin 20 mg PO HS PRN 09/18/20 11/02/21 multivit with min-folic acid 1 tablet PO DAILY 09/18/20 11/02/21 [Adult One Daily Multivitamin] pioglitazone [Actos] 30 mg PO DAILY 09/18/20 11/02/21 potassium chloride 20 meq PO BID 09/18/20 11/02/21 vitamin B complex [B 1 tablet PO HS 09/18/20 11/02/21 Complex-Vitamin B12] Emgality Pen 120 mg SUBCUT MONTHLY 06/08/21 11/02/21 Spiriva Respimat 2 puff INHALATION DAILY 06/08/21 11/02/21 urpfelsmya-vgmqbcb-yhzsnqpd 1 tablet PO Q4H PRN 06/08/21 11/02/21 fluticasone propion-salmeterol 1 inh INHALATION BID 06/08/21 11/02/21 [Advair Diskus] hydrochlorothiazide 25 mg PO DAILY 06/08/21 11/02/21 omega-3 fatty acids 1,000 mg PO DAILY 06/08/21 11/02/21 omeprazole 20 mg PO DAILY 06/08/21 11/02/21 zolpidem [Ambien] 5 mg PO HS PRN 06/08/21 11/02/21 Jorge 1 cap PO HS 06/23/21 11/02/21 cholecalciferol (vitamin D3) 25 mcg PO DAILY 06/23/21 11/02/21 [Vitamin D3] ketorolac 10 mg PO BID PRN 06/23/21 11/02/21 dulaglutide 1.5 mg/0.5 mL 1.5 mg SUBCUT WEEKLY 09/07/21 11/02/21 subcutaneous pen injector Allergies Allergy/AdvReac Type Severity Reaction Status Date / Time furosemide [From Lasix] Allergy Severe Hives Verified 11/02/21 11:29 hydrocodone Allergy Severe Hives Verified 11/02/21 11:29 fentanyl AdvReac Severe Other Verified 11/02/21 11:29 metformin AdvReac Severe Diarrhea Verified 11/02/21 11:29 codeine AdvReac Intermediate Vomiting Verified 11/02/21 11:29 sertraline [From Zoloft] AdvReac Intermediate Diarrhea Verified 11/02/21 11:29 tramadol AdvReac Intermediate Nausea and Verified 11/02/21 11:29 Vomiting PLATELET RICH PLASMA AdvReac Severe Other Uncoded 09/07/21 13:23 Review of Systems Review of Systems: All systems reviewed & are unremarkable except as noted in HPI and below PMFSH Past Medical History Medical History Asthma Chronic depression Chronic migraine Chronic neuropathic pain Chronic right shoulder pain COPD (chronic obstructive pulmonary disease) De Quervain's tenosynovitis Ductal carcinoma of right breast History of breast cancer with bilateral mastectomy and radiation HTN (hypertension) Hypercholesterolemia Hyperthyroidism Hypomagnesemia Insomnia Neuropathy Numbness and tingling Obstructive sleep apnea syndrome, moderate Right knee sprain Type 2 diabetes mellitus Vitamin B12 deficiency Surgical History Surgical History H/O mastectomy History of bilateral breast reduction surgery History of tonsillectomy S/P nasal surgery 06/14/20
--- NOTE | 2021-11-02 12:38 | PC.NURSE ---
Knee immobilizer was too small to fit on pt's leg. ERP aware and says to apply anamaria wraps instead.
[2021-11-02 12:39] VITALS: BP 107/75; PULSE 98; RESP 16; O2SAT 92
== END 2021-11-02 12:40 | disposition home or self-care (01) ==
PROVIDERS: Emergency Provider Emergency Medicine; PCP Family Medicine
DX: S83.91XA Sprain of unspecified site of right knee, initial encounter (principal)
CPT/HCPCS: 73562; 99283

== ENCOUNTER 2022-03-02 16:22 | Outpatient (CLI) | payer OTHER, SELFPAY ==
--- NOTE | ~2022-03-02 | MR_ITS ---
EXAMINATION: MR shoulder RT wo con DATE: 03/02/2022 17:15 INDICATION: Chronic right shoulder pain. TECHNIQUE: Magnetic resonance imaging (MRI) of the right shoulder was performed without intravenous c ontrast. Sequences included axial PD-weighted FS FSE, coronal oblique PD-weighted FS FSE and T2-weigh elijah FS FSE, and sagittal oblique T2-weighted FS FSE and T1-weighted FSE. COMPARISON: None. FINDINGS: Coracoacromial arch: The acromion undersurface is curved in morphology (type II). There is mild acromioclavicular joint os teoarthritis. There is moderate subacromial/subdeltoid bursitis. Rotator cuff: There is severe supraspinatus and infraspinatus tendinopathy. There is a full-thickness tear of anter ior supraspinatus tendon measuring 3 mm anterior to posterior by 9 mm proximal to distal. Teres minor tendon is normal. There is severe subscapularis tendinopathy. There is no asymmetric fatty atrophy o f the rotator cuff muscle bellies. There is edema in infraspinatus muscle belly, consistent with mild strain (grade 1). Biceps tendon and glenoid labrum: Biceps tendon is in bicipital groove. There is mild intra-articular biceps tendinopathy. There is deg eneration of the glenoid labrum without well-defined tear. Fluid: There is a small glenohumeral joint effusion. Bones/cartilage: There is cartilage surface irregularity of glenoid and humeral head. IMPRESSION: 1. Full-thickness rotator cuff tear. Mild strain of infraspinatus muscle belly (grade 1). 2. Mild glenohumeral joint chondrosis. 3. Mild acromioclavicular joint osteoarthritis. 4. Small glenoid humeral joint effusion and moderate subacromial/subdeltoid bursitis. 5. Mild intra-articular biceps tendinopathy. Reviewed, dictated and finalized at location A. IMPRESSION: 1. Full-thickness rotator cuff tear. Mild strain of infraspinatus muscle belly (grade 1). 2. Mild glenohumeral joint chondrosis. 3. Mild acromioclavicular joint osteoarthritis. 4. Small glenoid humeral joint effusion and moderate subacromial/subdeltoid bur sitis. 5. Mild intra-articular biceps tendinopathy.
== END 2022-03-02 16:23 | disposition home or self-care (01) ==
PROVIDERS: PCP Family Medicine; Visit Provider Physician Assistant
DX: M25.511 Pain in right shoulder (principal); M75.121 Complete rotator cuff tear or rupture of right shoulder, not specified as traumatic; M94.8X1 Other specified disorders of cartilage, shoulder; M19.011 Primary osteoarthritis, right shoulder; M25.411 Effusion, right shoulder; M75.51 Bursitis of right shoulder; M65.811 Other synovitis and tenosynovitis, right shoulder
CPT/HCPCS: 73221

== ENCOUNTER 2022-03-19 19:35 | Outpatient (CLI) | payer OTHER, SELFPAY ==
--- NOTE | ~2022-03-19 | XR_ITS ---
EXAMINATION: XR shoulder RT min 2V DATE: 03/19/2022 19:51 INDICATION: Right shoulder pain. TECHNIQUE: 4 views of right shoulder were obtained. COMPARISON: Right shoulder MRI 03/02/2022 FINDINGS: Bone alignment is normal. No fracture. There is mild osteoarthritis of acromioclavicular eri int and glenohumeral joint. Surgical clips overlie the chest. IMPRESSION: 1. Mild polyarticular osteoarthritis. Reviewed, dictated and finalized at location A.
== END 2022-03-19 19:36 | disposition home or self-care (01) ==
LOC: CHSIMG 19:37
PROVIDERS: PCP Family Medicine; Visit Provider Orthopaedic Surgery
DX: M25.511 Pain in right shoulder (principal)
CPT/HCPCS: 73030

== ENCOUNTER 2022-04-08 07:10 | Outpatient (CLI) | payer OTHER, SELFPAY ==
[2022-04-08 07:23] LABS: Basophils Absolute Auto 0.07 K/mm3 (0.00-0.10); Basophils Percent Auto 0.9 % (0.0-1.0); Eosinophils Absolute Auto 0.38 K/mm3 (0.02-0.50); Eosinophils Percent Auto 5.2 % (1.0-6.0); Hematocrit 45.7 % (35.0-49.0); Hemoglobin 14.8 g/dL (12.0-15.0); Immature Granulocyte Absolute 0.02 K/mm3 (0.00-0.00); Immature Granulocyte Percent A 0.3 % (0.0-0.0); Lymphocytes Absolute Auto 3.49 K/mm3 (1.10-4.50); Lymphocytes Percent Auto 47.4 % (18.0-42.0); Mean Corpuscular HGB Conc 32.4 g/dL (32.0-36.0); Mean Corpuscular Hemoglobin 31.6 pg (27.0-31.0); Mean Corpuscular Volume 97.6 fL (78.0-102.0); Monocytes Absolute Auto 0.85 K/mm3 (0.10-0.90); Monocytes Percent Auto 11.5 % (2.0-11.0); Neutrophils Absolute Auto 2.6 K/mm3 (1.7-7.2); Neutrophils Percent Auto 34.7 % (50.0-70.0); Platelet Count Result 238 K/mm3 (150-420); Red Blood Count 4.68 M/mm3 (4.20-5.40); Red Cell Distribution Width 14.3 % (11.6-14.4); White Blood Count 7.4 K/mm3 (4.8-10.8)
[2022-04-08 07:33] LABS: Hemoglobin A1C 6.6 % (<5.7)
[2022-04-08 08:13] LABS: Alanine Aminotransferase 31 U/L (14-59); Albumin Level 3.9 g/dL (3.4-5.0); Alkaline Phosphatase 91 U/L (46-116); Anion Gap 8 mmol/L (8-16); Aspartate Amino Transferase 22 U/L (15-37); Bilirubin,Total 0.3 mg/dL (0.00-1.00); Blood Urea Nitrogen 25 mg/dL (7-18); Calcium 9.1 mg/dL (8.5-10.1); Carbon Dioxide 36 mmol/L (21-32); Chloride 99 mmol/L (98-108); Estimated Glomerular Filt Rate 53; Free T4 Free Thyroxine 0.92 ng/dL (0.76-1.46); Glucose 123 mg/dL (70-99); Osmolality Calculated 301 mOsm/kg (285-295); Potassium 3.6 mmol/L (3.5-5.1); Sodium 143 mmol/L (136-145); Thyroid Stimulating Hormone 1.59 uIU/mL (0.36-3.74); Total Protein 6.9 g/dL (6.4-8.2)
[2022-04-12 17:17] LABS: Vitamin D 25 Hydroxy 42 ng/mL (30-100)
== END 2022-04-08 07:11 | disposition home or self-care (01) ==
LOC: CHSLAB 07:13
PROVIDERS: PCP Family Medicine; Visit Provider Physician Assistant
DX: E78.00 Pure hypercholesterolemia, unspecified (principal); E05.90 Thyrotoxicosis, unspecified without thyrotoxic crisis or storm; M89.9 Disorder of bone, unspecified; E11.9 Type 2 diabetes mellitus without complications
CPT/HCPCS: 36415; 80053; 82306; 83036; 84439; 84443; 85025

== ENCOUNTER 2022-05-23 20:14 | Outpatient (CLI) | payer OTHER, SELFPAY ==
[2022-05-23 20:31] LABS: Basophils Absolute Auto 0.06 K/mm3 (0.00-0.10); Basophils Percent Auto 0.8 % (0.0-1.0); Eosinophils Absolute Auto 0.36 K/mm3 (0.02-0.50); Hematocrit 45.2 % (35.0-49.0); Hemoglobin 14.7 g/dL (12.0-15.0); Immature Granulocyte Absolute 0.03 K/mm3 (0.00-0.00); Immature Granulocyte Percent A 0.4 % (0.0-0.0); Lymphocytes Percent Auto 31.7 % (18.0-42.0); Mean Corpuscular HGB Conc 32.5 g/dL (32.0-36.0); Mean Corpuscular Hemoglobin 32.2 pg (27.0-31.0); Mean Corpuscular Volume 98.9 fL (78.0-102.0); Mean Platelet Volume 10.1 fl (9.2-11.8); Monocytes Absolute Auto 0.48 K/mm3 (0.10-0.90); Monocytes Percent Auto 6.6 % (2.0-11.0); Neutrophils Percent Auto 55.5 % (50.0-70.0); Platelet Count Result 246 K/mm3 (150-420); Red Blood Count 4.57 M/mm3 (4.20-5.40); Red Cell Distribution Width 14.3 % (11.6-14.4); White Blood Count 7.3 K/mm3 (4.8-10.8)
[2022-05-23 20:49] LABS: Alanine Aminotransferase 35 U/L (14-59); Albumin Level 3.8 g/dL (3.4-5.0); Alkaline Phosphatase 82 U/L (46-116); Anion Gap 5 mmol/L (8-16); Aspartate Amino Transferase 20 U/L (15-37); Bilirubin,Total 0.3 mg/dL (0.00-1.00); Blood Urea Nitrogen 20 mg/dL (7-18); Calcium 9.2 mg/dL (8.5-10.1); Carbon Dioxide 35 mmol/L (21-32); Chloride 105 mmol/L (98-108); Estimated Glomerular Filt Rate > 60; Glucose 213 mg/dL (70-99); Osmolality Calculated 308 mOsm/kg (285-295); Potassium 3.3 mmol/L (3.5-5.1); Sodium 145 mmol/L (136-145)
[2022-05-28 03:33] LABS: CA 15-3 21 U/mL (<32)
== END 2022-05-23 20:15 | disposition home or self-care (01) ==
LOC: CHSLAB 20:17
PROVIDERS: PCP Family Medicine; Visit Provider Internal Medicine Hematology & Oncology
DX: C50.411 Malignant neoplasm of upper-outer quadrant of right female breast (principal); Z17.0 Estrogen receptor positive status [ER+]
CPT/HCPCS: 36415; 80053; 85025; 86300

== ENCOUNTER 2022-06-19 13:20 | Outpatient (CLI) | payer OTHER, SELFPAY ==
--- NOTE | ~2022-06-19 | DEXA_ITS ---
Bone Density Report Name: MARJORIE MORA Age: 56 Sex: Female Ethnicity: White Date of : 1965 Indication: postmenopausal; screening for osteoporosis; cancer; asthma or emphysema; Referring Provider: Swathi, Lashawn [place] Study: Bone densitometry was performed. Exam Date: June 19, 2022 Accession number: [id number] Bone Density: Region BMD T-score Z-score Classification AP Spine(L1-L4) 0.992 -0.5 0.7 Normal Femoral Neck (Left) 0.803 -0.4 0.8 Normal Total Hip (Left) 0.975 0.3 1.1 Normal Femoral Neck (Right) 0.802 -0.4 0.8 Normal Total Hip (Right) 0.972 0.2 1.1 Normal Femoral Neck Mean 0.803 -0.4 0.8 Normal Total Hip Mean 0.974 0.3 1.1 Normal World Health Organization criteria for BMD impression classify patients as: Normal (T-score at or above -1.0), Osteopenia (T-score between -1.0 and -2.5), or Osteoporosis (T-score at or below -2.5). 10-year Fracture Risk: FRAX not reported because: All T-scores for Spine Total, Hip Total, Femoral Neck at or above -1.0 Clinical Information Provided by Patient: Has used the following medications: Vitamin D, Calcium, multi vit Has the following medical conditions: Asthma or Emphysema, Cancer Patient maximum height was 63.5 Menopause Age: 49 No regular weight bearing exercise Drinks caffeinated beverages Onset of menses at age 12 Number of children 2 Impression: The patient has normal bone mass. Discussion: BONE DENSITY IS ABOVE THE MINIMUM DESIRABLE LEVEL AT ALL SKELETAL SITES TESTED. This patient?s bone mineral density is above the minimum desirable level (T-score -1.0 or better) at all sites measured. The patient should follow a healthful lifestyle (good nutrition with adequate calcium and vitamin D, and appropriate weight-bearing exercise). Follow-Up: Consider repeating this study in 5 years or sooner if there is some new clinical indication. Reported by: Dr. Darrel Cordova on 06/19/2022 1:54:00 PM. Reviewed, dictated and finalized at location [facility]
== END 2022-06-19 13:21 | disposition home or self-care (01) ==
LOC: CHSIMG 13:21
PROVIDERS: PCP Family Medicine; Visit Provider Physician Assistant
DX: Z13.820 Encounter for screening for osteoporosis (principal); Z78.0 Asymptomatic menopausal state
CPT/HCPCS: 77080

== ENCOUNTER 2022-11-12 20:17 | Outpatient (CLI) | payer OTHER, SELFPAY ==
[2022-11-12 21:46] LABS: Basophils Absolute Auto 0.06 K/mm3 (0.00-0.10); Eosinophils Absolute Auto 0.45 K/mm3 (0.02-0.50); Eosinophils Percent Auto 7.2 % (1.0-6.0); Hematocrit 45.2 % (35.0-49.0); Hemoglobin 15.1 g/dL (12.0-15.0); Immature Granulocyte Absolute 0.02 K/mm3 (0.00-0.00); Immature Granulocyte Percent A 0.3 % (0.0-0.0); Lymphocytes Absolute Auto 2.75 K/mm3 (1.10-4.50); Mean Corpuscular HGB Conc 33.4 g/dL (32.0-36.0); Mean Corpuscular Hemoglobin 32.5 pg (27.0-31.0); Mean Corpuscular Volume 97.2 fL (78.0-102.0); Mean Platelet Volume 9.3 fl (9.2-11.8); Neutrophils Absolute Auto 2.5 K/mm3 (1.7-7.2); Neutrophils Percent Auto 39.5 % (50.0-70.0); Platelet Count Result 288 K/mm3 (150-420); Red Blood Count 4.65 M/mm3 (4.20-5.40); Red Cell Distribution Width 14.5 % (11.6-14.4); White Blood Count 6.3 K/mm3 (4.8-10.8)
[2022-11-12 21:55] LABS: Creatinine Urine < 13.00 mg/dL (40-278); Microalbumin Urine Random < 13.0 mg/L
[2022-11-12 22:02] LABS: Alanine Aminotransferase 32 U/L (14-59); Albumin Level 3.9 g/dL (3.4-5.0); Alkaline Phosphatase 96 U/L (46-116); Anion Gap 5 mmol/L (8-16); Aspartate Amino Transferase 24 U/L (15-37); Bilirubin,Total 0.6 mg/dL (0.00-1.00); Blood Urea Nitrogen 20 mg/dL (7-18); Calcium 9.7 mg/dL (8.5-10.1); Carbon Dioxide 40 mmol/L (21-32); Chloride 99 mmol/L (98-108); Cholesterol 190 mg/dL (0-200); Estimated Glomerular Filt Rate > 60; Glucose 114 mg/dL (70-99); HDL Direct 64 mg/dL (40-60); LDL Cholesterol Calculated 104 mg/dL (<130); Osmolality Calculated 301 mOsm/kg (285-295); Potassium 2.9 mmol/L (3.5-5.1); Sodium 144 mmol/L (136-145); Total Protein 7.6 g/dL (6.4-8.2); Triglycerides 108 mg/dL (0-150)
[2022-11-12 22:05] LABS: Hemoglobin A1C 6.2 % (<5.7)
== END 2022-11-12 20:18 | disposition home or self-care (01) ==
LOC: CHSLAB 20:19
PROVIDERS: PCP Family Medicine; Visit Provider Physician Assistant
DX: E11.9 Type 2 diabetes mellitus without complications (principal); E78.00 Pure hypercholesterolemia, unspecified
CPT/HCPCS: 36415; 80053; 80061; 82043; 83036; 85025

== ENCOUNTER 2022-11-27 19:34 | Outpatient (CLI) | payer OTHER, SELFPAY ==
[2022-11-27 21:05] LABS: Alanine Aminotransferase 37 U/L (14-59); Albumin Level 3.7 g/dL (3.4-5.0); Alkaline Phosphatase 87 U/L (46-116); Anion Gap 5 mmol/L (8-16); Aspartate Amino Transferase 21 U/L (15-37); Bilirubin,Total 0.5 mg/dL (0.00-1.00); Blood Urea Nitrogen 19 mg/dL (7-18); Calcium 9.2 mg/dL (8.5-10.1); Carbon Dioxide 35 mmol/L (21-32); Chloride 104 mmol/L (98-108); Estimated Glomerular Filt Rate > 60; Glucose 121 mg/dL (70-99); Osmolality Calculated 301 mOsm/kg (285-295); Potassium 3.7 mmol/L (3.5-5.1); Sodium 144 mmol/L (136-145); Total Protein 7.1 g/dL (6.4-8.2)
== END 2022-11-27 19:35 | disposition home or self-care (01) ==
LOC: CHSLAB 19:36
PROVIDERS: PCP Physician Assistant; Visit Provider Physician Assistant
DX: E87.6 Hypokalemia (principal)
CPT/HCPCS: 36415; 80053

== ENCOUNTER 2023-02-19 21:47 | Outpatient (CLI) | payer OTHER, SELFPAY ==
[2023-02-19 22:10] LABS: Hemoglobin A1C 6.2 % (<5.7)
[2023-02-19 22:23] LABS: Alanine Aminotransferase 42 U/L (14-59); Albumin Level 3.6 g/dL (3.4-5.0); Alkaline Phosphatase 87 U/L (46-116); Anion Gap 8 mmol/L (8-16); Aspartate Amino Transferase 10 U/L (15-37); Bilirubin,Total 0.3 mg/dL (0.00-1.00); Blood Urea Nitrogen 21 mg/dL (7-18); Calcium 8.9 mg/dL (8.5-10.1); Carbon Dioxide 31 mmol/L (21-32); Chloride 103 mmol/L (98-108); Estimated Glomerular Filt Rate 60; Glucose 116 mg/dL (70-99); Osmolality Calculated 298 mOsm/kg (285-295); Sodium 142 mmol/L (136-145); Total Protein 6.6 g/dL (6.4-8.2)
== END 2023-02-19 21:48 | disposition home or self-care (01) ==
LOC: CHSLAB 21:49
PROVIDERS: PCP Physician Assistant; Visit Provider Physician Assistant
DX: E11.9 Type 2 diabetes mellitus without complications (principal); I10 Essential (primary) hypertension
CPT/HCPCS: 36415; 80053; 83036

== ENCOUNTER 2023-05-26 19:59 | Outpatient (CLI) | payer OTHER, SELFPAY ==
[2023-05-26 20:53] LABS: Basophils Absolute Auto 0.05 K/mm3 (0.00-0.10); Basophils Percent Auto 0.9 % (0.0-1.0); Eosinophils Absolute Auto 0.37 K/mm3 (0.02-0.50); Eosinophils Percent Auto 6.4 % (1.0-6.0); Hematocrit 43.8 % (35.0-49.0); Immature Granulocyte Absolute 0.02 K/mm3 (0.00-0.00); Immature Granulocyte Percent A 0.3 % (0.0-0.0); Lymphocytes Absolute Auto 1.84 K/mm3 (1.10-4.50); Lymphocytes Percent Auto 32.1 % (18.0-42.0); Mean Platelet Volume 10.5 fl (9.2-11.8); Monocytes Absolute Auto 0.44 K/mm3 (0.10-0.90); Monocytes Percent Auto 7.7 % (2.0-11.0); Neutrophils Percent Auto 52.6 % (50.0-70.0); Platelet Count Result 255 K/mm3 (150-420); Red Blood Count 4.38 M/mm3 (4.20-5.40); Red Cell Distribution Width 13.1 % (11.6-14.4); White Blood Count 5.7 K/mm3 (4.8-10.8)
[2023-05-26 21:02] LABS: Hemoglobin A1C 5.8 % (<5.7)
[2023-05-26 21:06] LABS: Alanine Aminotransferase 42 U/L (14-59); Albumin Level 3.6 g/dL (3.4-5.0); Alkaline Phosphatase 97 U/L (46-116); Anion Gap 5 mmol/L (8-16); Aspartate Amino Transferase 23 U/L (15-37); Bilirubin,Total 0.3 mg/dL (0.00-1.00); Blood Urea Nitrogen 20 mg/dL (7-18); Calcium 9.6 mg/dL (8.5-10.1); Carbon Dioxide 34 mmol/L (21-32); Chloride 105 mmol/L (98-108); Estimated Glomerular Filt Rate > 60; Glucose 102 mg/dL (70-99); Osmolality Calculated 300 mOsm/kg (285-295); Potassium 4.1 mmol/L (3.5-5.1); Sodium 144 mmol/L (136-145); Total Protein 6.3 g/dL (6.4-8.2)
[2023-05-29 13:51] LABS: CA 15-3 20 U/mL (<32)
== END 2023-05-26 20:00 | disposition home or self-care (01) ==
PROVIDERS: PCP Physician Assistant; Visit Provider Internal Medicine Hematology & Oncology
DX: C50.411 Malignant neoplasm of upper-outer quadrant of right female breast (principal); Z17.0 Estrogen receptor positive status [ER+]; R09.82 Postnasal drip; I10 Essential (primary) hypertension; E11.9 Type 2 diabetes mellitus without complications
CPT/HCPCS: 36415; 80053; 82785; 83036; 85025; 86003; 86300

== ENCOUNTER 2023-06-18 09:35 | Outpatient (CLI) | payer OTHER, SELFPAY ==
--- NOTE | ~2023-06-18 | MR_ITS ---
MRA HEAD History: Headache Technique: 3D time of flight MRA of the head is performed. Findings: The right and left distal vertebral arteries and the basilar and posterior cerebral arterie s are normal. Right and left distal internal carotid arteries and anterior and middle cerebral arteri es are normal. There is no aneurysm, stenosis, or occlusion. Impression: No occlusion, stenosis, or aneurysm. Reviewed, dictated and finalized at location . [facility] Impression: No occlusion, stenosis, or aneurysm.
== END 2023-06-18 09:36 | disposition home or self-care (01) ==
LOC: ANHIMG 09:41
PROVIDERS: PCP Physician Assistant; Visit Provider Physician Assistant
DX: G44.53 Primary thunderclap headache (principal)
CPT/HCPCS: 70544

== ENCOUNTER 2023-07-26 13:46 | Outpatient (CLI) | payer OTHER, SELFPAY ==
[2023-07-26 14:01] LABS: Basophils Absolute Auto 0.1 K/mm3 (0.0-0.1); Basophils Percent Auto 0.7 % (0.2-1.2); Eosinophils Absolute Auto 0.5 K/mm3 (0-0.3); Eosinophils Percent Auto 6.5 % (0-4.4); Hematocrit 42.1 % (37.0-47.0); Hemoglobin 13.6 g/dL (12.0-15.0); Immature Granulocyte Absolute 0.02 K/mm3 (0.00-0.031); Immature Granulocyte Percent A 0.3 % (0-0.5); Lymphocytes Absolute Auto 2.21 K/mm3 (0.9-3.2); Lymphocytes Percent Auto 29.4 % (18.3-44.2); Mean Corpuscular HGB Conc 32.3 g/dl (32-36); Mean Corpuscular Hemoglobin 31.6 pg (26-34); Mean Corpuscular Volume 97.9 fl (80-100); Mean Platelet Volume 9.3 fl (7.4-10.4); Monocytes Absolute Auto 0.6 K/mm3 (0.1-0.6); Monocytes Percent Auto 8.2 % (2.6-8.5); Neutrophils Absolute Auto 4.1 K/mm3 (1.3-6.7); Neutrophils Percent Auto 54.9 % (45.5-73.1); Platelet Count Result 270 k/mm3 (150-375); Red Cell Distribution Width 12.9 % (11.5-14.5); White Blood Count 7.5 K/mm3 (4.5-10.0)
[2023-07-26 14:09] LABS: Blood Urea Nitrogen 24 mg/dL (8-26); Carbon Dioxide 29 mmol/L (22-30); Chloride 103 mmol/L (98-109); Estimated Glomerular Filt Rate > 60; Glucose 136 mg/dL (70-105); Ionized Calcium (POC) 1.13 mmol/L (1.11-1.31); Potassium 3.5 mmol/L (3.5-4.9); Sodium 144 mmol/L (138-146)
[2023-07-26 19:09] LABS: Alanine Aminotransferase 21 U/L (6-35); Albumin Level 3.8 g/dL (3.5-5.1); Alkaline Phosphatase 79 U/L (38-126); Anion Gap 5 mmol/L (8-16); Aspartate Amino Transferase 49 U/L (14-36); Bilirubin,Total 0.4 mg/dL (0.2-1.3); Blood Urea Nitrogen 24 mg/dL (7-17); Calcium 9.1 mg/dL (8.4-10.2); Carbon Dioxide 30 mmol/L (22-30); Chloride 105 mmol/L (98-107); Estimated Glomerular Filt Rate > 60; Glucose 131 mg/dL (65-110); Potassium 3.6 mmol/L (3.4-5.0); Sodium 140 mmol/L (137-145)
[2023-07-29 04:04] LABS: CA 15-3 20 U/mL (<32)
== END 2023-07-26 13:47 | disposition home or self-care (01) ==
LOC: ANHLAB 13:48
PROVIDERS: PCP Physician Assistant; Visit Provider Internal Medicine Hematology & Oncology
DX: C50.411 Malignant neoplasm of upper-outer quadrant of right female breast (principal); Z17.0 Estrogen receptor positive status [ER+]
CPT/HCPCS: 36415; 80047; 80053; 85025; 86300

== ENCOUNTER 2023-08-06 07:15 | Outpatient (CLI) | payer OTHER, SELFPAY ==
--- NOTE | ~2023-08-06 | XR_ITS ---
Right Shoulder Technique: AP and axillary views were obtained. Clinical History: Pain Findings: No fracture or dislocation is seen. Osseous alignment is anatomic. The glenohumeral and acr omioclavicular joint spaces are preserved. Soft tissues are unremarkable. Impression: Unremarkable right shoulder radiographs. Reviewed, dictated and finalized at [facility]. ROPOLOGIST Impression: Unremarkable right shoulder radiographs.
== END 2023-08-06 07:16 | disposition home or self-care (01) ==
PROVIDERS: Visit Provider Orthopaedic Surgery
DX: M25.511 Pain in right shoulder (principal)
CPT/HCPCS: 73030

== ENCOUNTER 2023-08-22 10:31 | Outpatient (CLI) | payer OTHER, SELFPAY ==
--- NOTE | ~2023-08-22 | MMUS_ITS ---
EXAMINATION: MM diagnostic devin LT w enmanuel, US breast LT limited HISTORY: Left breast mass. History of mastectomy for malignancy. TECHNIQUE: Additional 3-D tomosynthesis images of the left breast were performed and synthetic 2-D im ages were generated. CAD analysis was submitted and interpreted. High resolution Limited left breast ultrasound was performed. COMPARISON: None BREAST PARENCHYMAL COMPOSITION: Breast composed of scattered areas of fibroglandular density FINDINGS: MAMMOGRAPHIC FINDINGS: There are surgical changes in the upper aspect of the left breast, consistent with prior mastectomy. There are are coarse amorphous calcifications in the upper central aspect of the left breast adjacent to the surgical clips, consistent with benign fat necrosis. ULTRASOUND: Limited left breast ultrasound: In the area of palpable concern there is densely shadowing hypoechoic soft tissue, corresponding to the fat necrosis seen on mammography. This area of abnormality measure s up to 3.5 cm. No additional masses are seen. IMPRESSION: 1. Large area of benign-appearing fat necrosis with associated calcifications in the upper central le ft breast corresponding to the area of previous lumpectomy. No evidence for malignancy. 2. Routine yearly screening mammogram and regular clinical breast examination are recommended. BI-RADS Category 2: Benign finding(s). Reviewed, dictated and finalized at location A. T STRIPPER IMPRESSION: 1. Large area of benign-appearing fat necrosis with associated calcifications i n the upper central left breast corresponding to the area of previous lumpectom y. No evidence for malignancy. 2. Routine yearly screening mammogram and regular clinical breast examination a re recommended. BI-RADS Category 2: Benign finding(s).
== END 2023-08-22 10:32 | disposition home or self-care (01) ==
PROVIDERS: Visit Provider Internal Medicine Hematology & Oncology
DX: N63.20 Unspecified lump in the left breast, unspecified quadrant (principal); R92.8 Other abnormal and inconclusive findings on diagnostic imaging of breast
CPT/HCPCS: 76642; 77061; 77065; G0279

== ENCOUNTER 2023-08-30 07:18 | Outpatient (CLI) | payer OTHER, SELFPAY ==
--- NOTE | 2023-08-30 07:21 | ECG_ITS ---
Measurements Intervals [place] Rate: 81 P: 53 NM: 158 QRS: 55 QRSD: 85 T: 33 QT: 369 QTc: 430 Interpretive Statements SINUS RHYTHM LOW QRS VOLTAGE IN PRECORDIAL LEADS [QRS DEFLECTION < 1.0 mV IN CHEST LEADS] COMPARED TO ECG 09/19/2020 04:23:11 NO SIGNIFICANT CHANGES Electronically Signed On 08-30-2023 11:07:43 CLIENT SERVICE COORDINATOR by Wellington Candelaria M.D.
== END 2023-08-30 07:19 | disposition home or self-care (01) ==
PROVIDERS: Visit Provider Anesthesiology
DX: Z01.818 Encounter for other preprocedural examination (principal); I10 Essential (primary) hypertension
CPT/HCPCS: 93005

== ENCOUNTER 2023-09-06 00:17 | Day surgery (SDC) | payer OTHER, SELFPAY ==
[2023-08-27 14:33] VITALS: BMI 33.3
--- NOTE | 2023-08-27 14:41 | PC.NURSE ---
Report to the Outpatient Waiting Room, entrance under the green pavilion located off [facility], at time 1000 on date 09/06/23. Planned Procedure Time: 1200. Time changes happen often and if your time is changed the preop area will call you the afternoon before. - You and your visitor will be asked to self-screen and do not enter if you have any COVID symptoms. - A mask is optional within the hospital at this time. Patients may have clear liquids (water, carbonated beverages, clear teas, apple juice) until 3 hours prior to surgery with a maximum of 20 ounces. - No food from midnight until time of surgery Take the following medications with a SIP of water the morning of surgery: TYLENOL/INHALER IF NEEDED, BUPROPION, GABAPENTIN DO NOT STOP ANY OF YOUR OTHER PRESCRIPTION MEDICATIONS PRIOR TO SURGERY ?EXCEPT THE FOLLOWING Medications to discontinue per physician: VITAMINS/SUPPLEMENTS Date to take last dose: 09/02/23 LAST DOSE OF CELEBREX AND NAPROXEN 08/29/23 Please no make-up, nail azeri, hairspray, perfume, deodorant, or body powder the day of surgery. No jewelry (including any body piercings) or valuables the day of surgery, leave them at home. Please take a shower or bath the night before, or the morning of, surgery with an antibacterial soap. Wear comfortable, loose fitting clothing. - Jewelry must be removed prior to entering the operating room. Rings and piercings that are not removed may be cut off. - The hospital will not accept responsibility for valuables. - Please leave all valuables, including medications, at home the day of surgery. If you are going home after surgery, a licensed cement truck driver must drive you home. - NO public transportation without another adult if you receive anesthesia. - We recommend that an adult stay with you for 24 hours following discharge. - We also recommend that you do not drive, make important decision, drink alcoholic beverages, or take any drugs that were not prescribed by your health care provider for at least 24 hours after your discharge time. Follow any additional instructions given to you from your surgeon. If you or anyone in your household have experienced Covid symptoms in the past week, please notify your surgeon or the nurse liaison at the phone number below for possible testing. Telephone instructions given to PT - MARJORIE ABBY and asked if any additional questions and then verbalized understanding. Patient advised to call surgeon office or pre surgery nurse liaison [phone] if any additional questions.
--- NOTE | 2023-09-05 10:32 | WPDANESEPPF ---
Anes - Initial Pre Proc Eval Procedure: Operation Date: 09/06/23 10:00 Proposed Procedures p Right Shoulder Arthroscopy with Debridement, Rotator Cuff and Biceps Repair, Acromioplasty, Proceed as Indicated - Mike Dbuon MD Date/Time: 09/05/23 10:32 Surgeon: Mike Dubon MD Pre Op Diagnosis: Strain of Muscle & Tendon Rot Cuff Rt Shoulder Patient Data Age: 57 Gender: F Height: 1.6 m Weight: 85.5 kg Allergies Allergy/AdvReac Type Severity Reaction Status Date / Time furosemide [From Lasix] Allergy Severe Hives Verified 09/06/23 09:20 hydrocodone Allergy Severe Hives Verified 09/06/23 09:20 morphine Allergy Other Verified 09/06/23 09:20 oxycodone [From Percocet] Allergy Other Verified 09/06/23 09:20 metformin AdvReac Severe Diarrhea Verified 09/06/23 09:20 codeine AdvReac Intermediate Vomiting Verified 09/06/23 09:20 sertraline [From Zoloft] AdvReac Intermediate Diarrhea Verified 09/06/23 09:20 tramadol AdvReac Intermediate Nausea and Verified 09/06/23 09:20 Vomiting PLATELET RICH PLASMA AdvReac Severe Other Uncoded 09/06/23 09:20 Home Medications Medication Instructions Recorded Confirmed Type albuterol sulfate 90 mcg/actuation 2 puff inhalation QID PRN 09/18/20 08/27/23 History aerosol inhaler Shortness Of Breath hyhwdvl-qjogzutoskcfl-whxiwsto 250 2 tablet PO Q4-6H PRN Migraine 09/18/20 08/27/23 History mg-250 mg-65 mg tablet (Excedrin Headache Migraine) atorvastatin 80 mg tablet 80 mg PO DAILY 09/18/20 08/27/23 History bupropion HCl 150 mg tablet,12 hr 450 mg PO DAILY 09/18/20 09/06/23 History sustained-release calcium-ergocalciferol (vit D2) 1 cap PO BID 09/18/20 08/27/23 History capsule loratadine 10 mg capsule 10 mg PO DAILY 09/18/20 08/27/23 History losartan 25 mg tablet 12.5 mg PO DAILY 09/18/20 08/27/23 History multivitamin with minerals-folic 1 tablet PO DAILY 09/18/20 08/27/23 History acid 0.4 mg tablet (Adult One Daily Multivitamin) potassium chloride 10 mEq 30 meq PO BID 09/18/20 08/27/23 History capsule,extended release atwqmbsuot-mpwxnfu-evbcufpa 50 1 tablet PO Q4H PRN Migraine 06/08/21 08/27/23 History mg-325 mg-40 mg tablet Headache omega-3 fatty acids 1,000 mg PO DAILY 06/08/21 08/27/23 History omeprazole magnesium 20 mg 20 mg PO BID #20 tabs 11/02/21 08/27/23 Rx tablet,delayed release (Prilosec OTC) acetaminophen 500 mg capsule 1,000 mg PO Q6H PRN Pain 03/23/22 08/27/23 History aspirin 81 mg tablet,delayed 81 mg PO DAILY 03/23/22 08/27/23 History release empagliflozin 25 mg tablet 10 mg PO DAILY 03/23/22 08/27/23 History (Jardiance) qqwgruedvx-BL-cxrynzsjuixqj 6.25 2 cap PO HS 08/27/23 08/27/23 History mg-15 mg-325 mg capsule (Vicks NyQuil Cold/Flu Liquicap) erenumab-aooe 140 mg/mL 140 mg subcut MONTHLY 08/27/23 08/27/23 History subcutaneous auto-injector (Aimovig Autoinjector) gabapentin 600 mg tablet 1,200 mg PO BID 08/27/23 09/06/23 History ipratropium bromide 21 mcg (0.03 2 spray intranasal TID 08/27/23 08/27/23 History %) nasal spray naproxen sodium 220 mg capsule 220 mg PO BID 08/27/23 08/27/23 History tirzepatide 15 mg/0.5 mL 15 mg subcut WEEKLY 08/27/23 08/27/23 History subcutaneous pen injector (Mounjaro) torsemide 10 mg tablet 10 mg PO QAM 08/27/23 08/27/23 History trazodone 100 mg tablet 100 mg PO HS 08/27/23 08/27/23 History celecoxib 100 mg capsule 100 mg PO BID #30 caps 08/28/23 09/06/23 Rx ondansetron 8 mg disintegrating 8 mg PO Q6-8H PRN nausea and 08/28/23 09/06/23 Rx tablet vomiting #10 tabs Patient hx anesthesia problems: none Family hx anesthesia problems: none Results Review: All pre-operative results and documents have been reviewed as part of the pre-operative evaluation. [facility] Past Medical History Medical History Asthma Bursitis of shoulder, right Chronic depression Chronic migraine Chronic neuropathic pain Chroni
[2023-09-06] VITALS (9 sets, daily range): BP systolic 94–123; BP diastolic 59–84; PULSE 78–86; RESP 12–17; TEMP 36.2–36.4; O2SAT 92–100
--- NOTE | 2023-09-06 07:10 | WPDHPUPDATE1 ---
History and Physical Update Update Date/Time: 09/06/23 07:10 History and Physical has been reviewed, including an updated exam of the patient. There are NO changes in the patient's condition. Risks, benefits, and alternatives have been discussed and questions answered. Patient agrees to proceed with procedure.
--- NOTE | 2023-09-06 07:35 | PM.IMHP ---
H&P: HPI History of Present Illness Date/Time: 09/06/23 07:35 Chief Complaint: right Shoulder pain Narrative: 57-year-old woman with severe right shoulder pain. Pain unrelieved with injections, physical therapy, home exercise and activity modifications. MRI shows rotator cuff tear and biceps tendon degeneration with bursitis. Presents for operative treat Review of Systems Constitutional: Constitutional: Denies fever(s) Eyes: Eyes: Denies blurry vision ENT: Reports Normal hearing present Cardiovascular: Cardiovascular: Denies chest pain and Denies dyspnea Respiratory: Respiratory: Denies dyspnea and Denies wheezing Gastrointestinal: Gastrointestinal: Denies abdominal pain Genitourinary: Genitourinary: Denies urinary urgency Musculoskeletal: Musculoskeletal: Reports as per HPI and Denies numbness Integumentary/Breasts: Skin/Breast: Denies changing lesions and Denies sores Neurologic: Reports Normal hearing present, Denies behavioral changes, Denies confusion, Denies numbness and Denies convulsions Psychiatric: Psychiatric: Denies behavioral changes, Denies confusion and Denies hallucinations Endocrine: Endocrine: Denies heat intolerance Hematologic/Lymphatic: Hematologic/Lymphatic: Denies easy bleeding Allergic/Immunologic: Allergic/Immunologic: Denies wheezing [facility] Past Medical History Medical History Asthma Bursitis of shoulder, right Chronic depression Chronic migraine Chronic neuropathic pain Chronic right shoulder pain COPD (chronic obstructive pulmonary disease) De Quervain's tenosynovitis Ductal carcinoma of right breast History of breast cancer with bilateral mastectomy and radiation HTN (hypertension) Hypercholesterolemia Hyperthyroidism Hypomagnesemia Insomnia Neuropathy Numbness and tingling Obstructive sleep apnea syndrome, moderate Right knee sprain Rotator cuff tear, right Subacromial impingement of right shoulder Type 2 diabetes mellitus Vitamin B12 deficiency Surgical History Surgical History H/O mastectomy History of bilateral breast reduction surgery History of tonsillectomy S/P nasal surgery 06/14/2021 Bilateral endoscopic image guided maxillary antrostomies 2. Bilateral endoscopic image guided total ethmoidectomies 3. Bilateral image guided endoscopic sphenoidotomies 4. Bilateral image guided frontal sinusotomies 5. Endoscopic assisted septoplasty 6. 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 She has 2 children Which her daughters. She is a former smoker. The patient is listed as being single. the patient denies any alcohol marijuana or illicit drugs. She does not have a durable power corporate associate attorney for healthcare. Code status full code Smoking packs per day: 1.5 Smoking cigarettes per day: 30.0 Years smoked: 30 Smoking pack-years: 45.00 Smoking status: Former smoker Tobacco type: cigarettes Second hand tobacco smoke exposure: No Smoking end date: 07/23/06 Alcohol intake: current Alcohol use details: 3/YEAR Substance use: never Substance use type: does not use Living arrangements: alone Occupation/Education: occupation Gender ident
[2023-09-06 08:44] LABS: Glucose Point of Care 103 mg/dl (65-105)
[2023-09-06] MEDS: LACTATED RINGERS 1,000 ML 30 ML IV CONT ×2 (09:10→12:50)
[2023-09-06] MEDS: ACETAMINOPHEN 500 MG TABLET 1000 MG PO (09:10)
[2023-09-06] MEDS: KETOROLAC 15 MG/ML VIAL (*BKC) IV PUSH (09:10)
--- NOTE | 2023-09-06 09:49 | WPDANESPNB ---
Anes - Peripheral Nerve Block Date/Time: 09/06/23 09:49 I have discussed with the patient/family/POA the placement of a peripheral nerve block for post-operative pain management, including associated risks, benefits, complications, and side effects. Alternative methods of post-operative analgesia were detailed. Questions were solicited and answers provided to the satisfaction of the patient/family/POA. Time-Out: A pre-procedural Time-Out was completed immediately before starting the procedure and confirmed: Patient Identification, Site, Procedure, Patient Position and the Availability of Requisite Equipment. Clinical Indications: Acute post-operative pain management requested by the operative surgeon. Nerve Block Insertion Note Anes-nerve block: interscalene right Patient position: supine Skin prep: chlorhexidine Needle: 22 gauge, stimulating, insulated echogenic needle. Needle length: 50 mm Technique: ultrasound Injectate: bupivacaine 0.5% with epi 5 mcg/ml (20cc- no epi) Observations: tolerated well Complications: none Procedure start time:: 1010 Procedure end time:: 1012
[2023-09-06] MEDS: ceFAZolin 2 GM/D5W 50 ML 2 GM/50 ML BAG IVPB (10:19)
--- NOTE | 2023-09-06 12:49 | W.PM.PROC2 ---
Procedure Note - Detailed Date of Procedure 09/06/23 Pre-op Diagnosis Strain of Muscle & Tendon Rot Cuff Rt Shoulder Post-op Diagnosis Same Procedure Performed Right shoulder arthroscopy with extensive debridement of the glenohumeral joint, rotator cuff, bicep tendon and synovitis. Biceps tenodesis. Sub acromial bursectomy with acromioplasty. Surgeon Mike Dubon MD [facility] assistant men's lacrosse coach Anesthesia General Indications 57-year-old with severe right shoulder pain. MRI demonstrates rotator cuff tear biceps tendinitis. Findings Complete tear of the supraspinatus portion of the rotator cuff With 5 mm retraction. biceps tendinitis instability. Moderate degenerative changes the glenoid 2. Minimal degenerative changes humeral Head. Moderate synovitis glenohumeral joint. Type 2 acromion. Description of Procedure Patient identified in the preoperative holding. Informed consent given. Operative extremity marked. Patient received intravenous antibiotics. Patient brought to the operating room where underwent general anesthetic by anesthesia team. Positioned supine on operating room table. Time-out performed confirming the patient, site of the surgery and the plan. Patient was then positioned in the beach chair position with careful securing of the head and neck. Right shoulder was then prepped and draped usual sterile surgical fashion using a ChloraPrep skin solution. Local anesthetic with 0.5% Marcaine with epinephrine was used at the portal sites. Standard posterior arthroscopy portal position with a 22 gauge spinal needle and infiltrating of the joint with saline. Eleven blade knife used to incise the skin and blunt penetration of the soft tissue and posterior capsule. Camera and inflow restarted through this portal. The shoulder was inspected and findings were noted. Anterior portal was then made using positioning from a 22 gauge spinal needle, 11 blade knife for the skin and blunt penetration of the anterior capsule. 4.5 mm arthroscopic shaver introduced and a debridement of the shoulder joint was performed including the glenoid and humeral head, undersurface of the rotator cuff, labrum and the rotator cuff tear site itself. Arthroscopic wand introduced and bleeding points were coagulated. Any excess synovitis was removed with the Wand. The proximal biceps was then released with the arthroscopic Wand. There was partial retraction of the tendon but not complete retraction. The lateral incision was then lengthened 1 cm for a mini open type approach. Retractors were placed and the deltoid muscle was split in line with the skin incision. The rotator cuff tear was identified. Rasp was then used to perform acromioplasty of the anterolateral acromion. This was irrigated and suctioned. The footprint on the humeral tuberosity was then prepared with a rongeur and rasp. Thorough irrigation was performed. Two medial row anchors were then placed using a punch followed by placement of the fibertak suture anchors. Suture tape was then passed through the rotator cuff to provide sufficient tissue for repair. Repair was then performed by using 2 lateral anchors and cross stitching the suture tape. The arm was abducted to aid in the repair. Sutures were cut and the arm was then taken through a full range of motion and noted to be stable. No impingement. There was no excess tear or dog ear which required repair. Wounds thoroughly irrigated saline solution. Except tendon then addressed. This was dissected out of the bicipital groove. Black Topper hole placed in proximal humerus just distal to the bicipital groove and the fiber tack suture anchor placed and tensioned. Fiber tape loop then passed through biceps tendon and the biceps tendon secured to fiber tack anchor. Correct tension biceps was held during repair. Wound irrigated with saline. The deltoid was then repaired with 0 Vicryl suture. Subcutaneous tissue repaired with 3 0 Monocryl interrupt
[2023-09-06 13:43] LABS: Glucose Point of Care 100 mg/dl (65-105)
== END 2023-09-06 15:08 | disposition home or self-care (01) ==
PROVIDERS: Visit Provider Orthopaedic Surgery
PROC: (CPT 29805; principal; 2023-09-06 10:00)
DX: M75.121 Complete rotator cuff tear or rupture of right shoulder, not specified as traumatic (principal); M65.811 Other synovitis and tenosynovitis, right shoulder; M75.21 Bicipital tendinitis, right shoulder; M19.011 Primary osteoarthritis, right shoulder; M75.51 Bursitis of right shoulder; M75.41 Impingement syndrome of right shoulder; G89.18 Other acute postprocedural pain; J44.9 Chronic obstructive pulmonary disease, unspecified; F32.A Depression, unspecified; I10 Essential (primary) hypertension; E78.00 Pure hypercholesterolemia, unspecified; G47.33 Obstructive sleep apnea (adult) (pediatric); E11.40 Type 2 diabetes mellitus with diabetic neuropathy, unspecified; E53.8 Deficiency of other specified B group vitamins; Z85.3 Personal history of malignant neoplasm of breast; Z92.3 Personal history of irradiation; Z87.891 Personal history of nicotine dependence; E66.9 Obesity, unspecified; Z68.33 Body mass index [BMI] 33.0-33.9, adult; Z79.51 Long term (current) use of inhaled steroids; Z79.82 Long term (current) use of aspirin; Z79.84 Long term (current) use of oral hypoglycemic drugs; Z79.85 Long-term (current) use of injectable non-insulin antidiabetic drugs
CPT/HCPCS: 29823; 29828; 64415; 82948; A4565; A9270; C1713; J0690; J1100; J1885; J2250; J2371; J2405; J2704; J3010; J7120

== ENCOUNTER 2023-09-17 12:14 | Outpatient (CLI) | payer OTHER, SELFPAY ==
--- NOTE | ~2023-09-17 | XR_ITS ---
EXAMINATION: XR shoulder RT min 2V DATE: 09/17/2023 12:31 INDICATION: Right shoulder surgery follow-up. TECHNIQUE: 4 views of right shoulder were obtained. COMPARISON: Right shoulder radiographs 08/06/2023 FINDINGS: Bone alignment is normal. No fracture. There is mild osteoarthritis of glenohumeral joint a nd acromioclavicular joint. Surgical clips overlie the right chest. IMPRESSION: 1. Mild polyarticular osteoarthritis. Reviewed, dictated and finalized at location A.
== END 2023-09-17 12:15 | disposition home or self-care (01) ==
LOC: ANHBWCIMG 12:22
PROVIDERS: Visit Provider Orthopaedic Surgery
DX: M19.011 Primary osteoarthritis, right shoulder (principal)
CPT/HCPCS: 73030

== ENCOUNTER 2023-09-24 10:40 | Outpatient (RCR) | payer OTHER, SELFPAY ==
--- NOTE | 2023-09-24 13:08 | OPREHPOC ---
Outpatient Therapy Plan of Care This is a Multidisciplinary Plan of Care that may contain components documented by all disciplines (PT, OT, and ST.) PT Problem 1 PT Problem #1 Knowledge Deficit PT Goal 1 Goal patient to demonstrate independence with HEP Target Visit 6 PT Problem 2 PT Problem #2 Pain PT Goal 1 Goal 1. Patient to report highest pain at 2/10 2. Patient to report ability to sleep with no disturbance due to R shoulder pain Target Visit 12 PT Problem 3 PT Problem #3 Impaired Range of Motion PT Goal 1 Goal 1. Patient to demonstrate 90 deg of R shoulder flexion 2. Patient to demonstrate 45 deg of R shoulder ER PROM Target Visit 6 PT Goal 2 Goal 1. Patient to demonstrate 160 deg of R shoulder flexion to return to reaching into cabinets at PLOF 2. Patient to demonstrate ability to reach to bra line for dressing tasks with the R shoulder Target Visit 12 PT Problem 4 PT Problem #4 Impaired Strength PT Goal 1 Goal Patient to demonstrate 4+/5 strength of the R UE to return to house hold tasks at PLOF Target Visit 12 PT Problem 5 PT Problem #5 Impaired Functional Mobil PT Goal 1 Goal 1. Patient to score 30% improvement on QuickDash 2. Patient to report ability to brush teeth with the R hand Target Visit 12
--- NOTE | 2023-09-24 13:08 | PTOPEVAL1 ---
Assessment and note entered by Cherelle Wallace DPT Evaluation Information Assessment Status Evaluation Diagnosis R shoulder pain Onset 09/06/23 Subjective Information Patient reports she underwent R RTC repair on 09/06 due to chronic R shoulder pain. She reports she has been in a sling since surgery and has been doing pendulums and distal joint ROM. RTMD next week. She has orders for PROM only at this time. She reports difficulty with sleeping, hygiene tasks, caring for her cats and completing house hold tasks. She reports she lives alone. 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 Reported Pain Level Pain Score 4: Self Report Assessment PT Clinical Summary Ms. Hayward is a 57 year old female who presents to PT with R shoulder pain s/p R RTC repair. Patient presents with decreased R shoulder strength, decreased R shoulder ROM and increased pain limiting her ability to sleep, perform hygiene tasks and complete house hold chores. She would benefit from skilled PT to address impairments and return to PLOF. Plan of Care Interventions Electrical Stimulation,Hot Pack/Cold Pack,Manual Therapy,Neuro Re-education,Patient/Caregiver Educati,Therapeutic Activities,Therapeutic Exercise PT Services Indicated Yes Treatment Frequency and 3x weekly for 12 visits Duration These treatments will address the objective and functional deficits as defined above. The patient will be advanced safely and appropriately in order for the patient to progress towards his/her prior level of function. Additional exercises will be introduced and as well as a comprehensive home exercise program upon discharge, if needed, ?to ensure carryover of functional gains achieved in the clinic. This treatment plan has been reviewed and agreement upon by the patient.
--- NOTE | 2023-10-15 11:53 | OPREHPOC ---
Outpatient Therapy Plan of Care This is a Multidisciplinary Plan of Care that may contain components documented by all disciplines (PT, OT, and ST.) PT Problem 1 PT Problem #1 Knowledge Deficit PT Goal 1 Goal patient to demonstrate independence with HEP Target Visit 22 PT Problem 2 PT Problem #2 Pain PT Goal 1 Goal 1. Patient to report highest pain at 2/10 2. Patient to report ability to sleep with no disturbance due to R shoulder pain Target Visit 22 PT Problem 3 PT Problem #3 Impaired Range of Motion PT Goal 1 Goal 1. Patient to demonstrate 90 deg of R shoulder flexion 2. Patient to demonstrate 45 deg of R shoulder ER PROM Target Visit 22 PT Goal 2 Goal 1. Patient to demonstrate 160 deg of R shoulder flexion to return to reaching into cabinets at PLOF 2. Patient to demonstrate ability to reach to bra line for dressing tasks with the R shoulder Target Visit 22 PT Problem 4 PT Problem #4 Impaired Strength PT Goal 1 Goal Patient to demonstrate 4+/5 strength of the R UE to return to house hold tasks at PLOF Target Visit 22 PT Problem 5 PT Problem #5 Impaired Functional Mobil PT Goal 1 Goal 1. Patient to score 30% improvement on QuickDash 2. Patient to report ability to brush teeth with the R hand Target Visit 22
--- NOTE | 2023-10-15 11:53 | PTOPREEVAL ---
Assessment and note entered by Cherelle Miller DPT Evaluation Information Assessment Status Re-evaluation Diagnosis R shoulder pain Onset 09/06/23 Subjective Information patient reports she has been out of the sling since . she reports no pain at rest and is finding she is tempted to use her arm more. Reported Pain Level Pain Score 0: Self Report Assessment PT Clinical Summary Ms. Hayward has been seen for 10 visits of skilled PT. She is progressing well per protocol at this time. As of today 10/15/23 she is able to progress with AROM/AAROM. She reports no pain at rest and has been able to wean out of sling. She continues to lack strength and full ROM needed for house hold chores. She will benefit from continued skilled PT to address remaining impairments and return to PLOF. Plan of Care Interventions Electrical Stimulation,Hot Pack/Cold Pack,Manual Therapy,Neuro Re-education,Patient/Caregiver Educati,Therapeutic Activities,Therapeutic Exercise PT Services Indicated Yes Treatment Frequency and continue 3x weekly for 12 visits Duration These treatments will address the objective and functional deficits as defined above. The patient will be advanced safely and appropriately in order for the patient to progress towards his/her prior level of function. Additional exercises will be introduced and as well as a comprehensive home exercise program upon discharge, if needed, ?to ensure carryover of functional gains achieved in the clinic. This treatment plan has been reviewed and agreement upon by the patient.
--- NOTE | 2023-11-19 11:53 | OPREHPOC ---
Outpatient Therapy Plan of Care This is a Multidisciplinary Plan of Care that may contain components documented by all disciplines (PT, OT, and ST.) PT Problem 1 PT Problem #1 Knowledge Deficit PT Goal 1 Goal patient to demonstrate independence with HEP Target Visit 22 Progress Met PT Problem 2 PT Problem #2 Pain PT Goal 1 Goal 1. Patient to report highest pain at 2/10 2. Patient to report ability to sleep with no disturbance due to R shoulder pain Target Visit 32 Comment continue PT Problem 3 PT Problem #3 Impaired Range of Motion PT Goal 1 Goal 1. Patient to demonstrate 90 deg of R shoulder flexion 2. Patient to demonstrate 45 deg of R shoulder ER PROM Target Visit 22 Progress Met PT Goal 2 Goal 1. Patient to demonstrate 160 deg of R shoulder flexion to return to reaching into cabinets at PLOF 2. Patient to demonstrate ability to reach to bra line for dressing tasks with the R shoulder Target Visit 32 Comment continue PT Problem 4 PT Problem #4 Impaired Strength PT Goal 1 Goal Patient to demonstrate 4+/5 strength of the R UE to return to house hold tasks at PLOF Target Visit 32 Comment continue PT Problem 5 PT Problem #5 Impaired Functional Mobil PT Goal 1 Goal 1. Patient to score 30% improvement on QuickDash 2. Patient to report ability to brush teeth with the R hand, met Target Visit 32 Progress Partially Met Comment continue
--- NOTE | 2023-11-19 11:53 | PTOPREEVAL ---
Assessment and note entered by Cherelle Miller DPT Evaluation Information Assessment Status Re-evaluation Diagnosis R shoulder pain Onset 09/06/23 Subjective Information patient reports pain has been minimal. she reports return to brushing her teeth and fixing her hair. she reports difficulty with reaching over head. she is compliant with HEP. 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 Reported Pain Level Pain Score 0: Self Report Assessment PT Clinical Summary Ms. Hayward has been seen for 22 visits of skilled PT. She is progressing well per protocol at this time. She demonstrates 128 deg of R shoulder flexion but continues to lack strength of the R shoulder. She reports improvement with house hold and personal tasks but is still limited with lifting over head. She would benefit from continued skilled PT to address remaining impairments and return to PLOF. Plan of Care Interventions Electrical Stimulation,Hot Pack/Cold Pack,Manual Therapy,Neuro Re-education,Patient/Caregiver Educati,Therapeutic Activities,Therapeutic Exercise PT Services Indicated Yes Treatment Frequency and continue 2x weekly for 10 visits Duration These treatments will address the objective and functional deficits as defined above. The patient will be advanced safely and appropriately in order for the patient to progress towards his/her prior level of function. Additional exercises will be introduced and as well as a comprehensive home exercise program upon discharge, if needed, ?to ensure carryover of functional gains achieved in the clinic. This treatment plan has been reviewed and agreement upon by the patient.
--- NOTE | 2023-12-10 11:56 | PCPTNOTE ---
On 12/10/23, the license pending therapist, [Rosa Abdi], provided care and completed [facility] documentation on this patient. I have reviewed the student's documentation and agree with the findings.
== END 2023-12-24 09:22 | disposition still patient (30) ==
LOC: CHSPT 10:40
PROVIDERS: Visit Provider Orthopaedic Surgery
DX: M75.101 Unspecified rotator cuff tear or rupture of right shoulder, not specified as traumatic (principal)
CPT/HCPCS: 97014; 97110; 97140; 97150; 97161; G0283

== ENCOUNTER 2023-09-28 10:13 | Outpatient (CLI) | payer OTHER, SELFPAY ==
[2023-09-28 10:41] LABS: Hemoglobin A1C 5.5 % (<5.7)
[2023-09-28 11:13] LABS: Anion Gap 7 mmol/L (8-16); Blood Urea Nitrogen 22 mg/dL (7-18); Calcium 9.6 mg/dL (8.5-10.1); Carbon Dioxide 32 mmol/L (21-32); Chloride 105 mmol/L (98-108); Estimated Glomerular Filt Rate > 60; Glucose 113 mg/dL (70-99); Osmolality Calculated 302 mOsm/kg (285-295); Potassium 4.7 mmol/L (3.5-5.1); Sodium 144 mmol/L (136-145)
== END 2023-09-28 10:14 | disposition home or self-care (01) ==
LOC: CHSLAB 10:17
PROVIDERS: PCP Physician Assistant; Visit Provider Physician Assistant
DX: E11.9 Type 2 diabetes mellitus without complications (principal)
CPT/HCPCS: 36415; 80048; 83036

== ENCOUNTER 2023-12-24 11:20 | Outpatient (RCR) | payer OTHER, SELFPAY ==
--- NOTE | 2023-12-24 12:59 | PCPTNOTE ---
On 12/24/23, the license pending SCIENTIFIC PROGRAMMER ANALYST, [Elisa Abdi ], provided care and completed [facility] documentation on this patient. I have reviewed the license pending SCIENTIFIC PROGRAMMER ANALYST's documentation and agree with the findings.
--- NOTE | 2023-12-28 15:31 | PCPTNOTE ---
I reviewed the License Pending Therapist's documentation and agree with the findings.
== END 2023-12-31 16:01 | disposition home or self-care (01) ==
LOC: CHSPT 11:20
PROVIDERS: Visit Provider Orthopaedic Surgery
DX: M75.101 Unspecified rotator cuff tear or rupture of right shoulder, not specified as traumatic (principal)
CPT/HCPCS: 97110

== ENCOUNTER 2024-01-07 18:14 | Outpatient (CLI) | payer OTHER, SELFPAY ==
[2024-01-07 18:25] LABS: Basophils Absolute Auto 0.08 K/mm3 (0.00-0.10); Basophils Percent Auto 1.1 % (0.0-1.0); Eosinophils Absolute Auto 0.44 K/mm3 (0.02-0.50); Eosinophils Percent Auto 6.2 % (1.0-6.0); Hematocrit 43.2 % (35.0-49.0); Hemoglobin 14.3 g/dL (12.0-15.0); Immature Granulocyte Absolute 0.02 K/mm3 (0.00-0.00); Immature Granulocyte Percent A 0.3 % (0.0-0.0); Lymphocytes Absolute Auto 2.66 K/mm3 (1.10-4.50); Lymphocytes Percent Auto 37.4 % (18.0-42.0); Mean Corpuscular HGB Conc 33.1 g/dL (32-36); Mean Corpuscular Volume 99.8 fL (78.0-102.0); Mean Platelet Volume 9.7 fl (9.2-11.8); Monocytes Absolute Auto 0.58 K/mm3 (0.10-0.90); Monocytes Percent Auto 8.2 % (2.0-11.0); Neutrophils Absolute Auto 3.33 K/mm3 (1.70-7.20); Neutrophils Percent Auto 46.8 % (50.0-70.0); Platelet Count Result 258 K/mm3 (150-420); Red Blood Count 4.33 M/mm3 (4.20-5.40); Red Cell Distribution Width 12.4 % (11.6-14.4); White Blood Count 7.1 K/mm3 (4.8-10.8)
[2024-01-07 19:28] LABS: Hemoglobin A1C 5.7 % (<5.7)
[2024-01-07 19:34] LABS: Alanine Aminotransferase 23 U/L (14-59); Albumin Level 3.6 g/dL (3.4-5.0); Alkaline Phosphatase 84 U/L (46-116); Anion Gap 9 mmol/L (4-12); Aspartate Amino Transferase 23 U/L (15-37); Bilirubin,Total 0.3 mg/dL (0.00-1.00); Blood Urea Nitrogen 21 mg/dL (7-18); Calcium 9.1 mg/dL (8.5-10.1); Carbon Dioxide 29 mmol/L (21-32); Chloride 107 mmol/L (98-108); Cholesterol 188 mg/dL (0-200); Estimated Glomerular Filt Rate > 60; Glucose 129 mg/dL (70-99); HDL Direct 55 mg/dL (40-60); LDL Cholesterol Calculated 105 mg/dL (<130); Osmolality Calculated 305 mOsm/kg (285-295); Sodium 145 mmol/L (136-145); Total Protein 6.2 g/dL (6.4-8.2); Triglycerides 140 mg/dL (0-150)
[2024-01-08 00:04] LABS: Creatinine Urine 43.69 mg/dL (40-278); MALB Creatinine Ratio 29.7 mg/g (0-30); Microalbumin Urine Random < 13.0 mg/L
== END 2024-01-07 18:15 | disposition home or self-care (01) ==
LOC: CHSIMG 18:15 → CHSLAB 18:41
PROVIDERS: Visit Provider Physician Assistant
DX: E11.9 Type 2 diabetes mellitus without complications (principal)
CPT/HCPCS: 36415; 80053; 80061; 82043; 83036; 85025

== ENCOUNTER 2024-03-01 21:16 | Outpatient (CLI) | payer OTHER, SELFPAY ==
[2024-03-01 21:57] LABS: Basophils Absolute Auto 0.05 K/mm3 (0.00-0.10); Basophils Percent Auto 0.7 % (0.0-1.0); Eosinophils Absolute Auto 0.36 K/mm3 (0.02-0.50); Hematocrit 42.3 % (35.0-49.0); Immature Granulocyte Absolute 0.02 K/mm3 (0.00-0.00); Immature Granulocyte Percent A 0.3 % (0.0-0.0); Lymphocytes Absolute Auto 3.03 K/mm3 (1.10-4.50); Lymphocytes Percent Auto 42.2 % (18.0-42.0); Mean Corpuscular HGB Conc 33.1 g/dL (32-36); Mean Corpuscular Hemoglobin 31.5 pg (27.0-31.0); Mean Corpuscular Volume 95.1 fL (78.0-102.0); Mean Platelet Volume 9.9 fl (9.2-11.8); Monocytes Absolute Auto 0.49 K/mm3 (0.10-0.90); Monocytes Percent Auto 6.8 % (2.0-11.0); Neutrophils Absolute Auto 3.23 K/mm3 (1.70-7.20); Platelet Count Result 252 K/mm3 (150-420); Red Blood Count 4.45 M/mm3 (4.20-5.40); Red Cell Distribution Width 12.8 % (11.6-14.4); White Blood Count 7.2 K/mm3 (4.8-10.8)
[2024-03-01 22:12] LABS: Alanine Aminotransferase 25 U/L (14-59); Albumin Level 3.9 g/dL (3.4-5.0); Alkaline Phosphatase 94 U/L (46-116); Anion Gap 9 mmol/L (4-12); Aspartate Amino Transferase 18 U/L (15-37); Bilirubin,Total 0.4 mg/dL (0.00-1.00); Blood Urea Nitrogen 22 mg/dL (7-18); Calcium 9.1 mg/dL (8.5-10.1); Carbon Dioxide 27 mmol/L (21-32); Chloride 104 mmol/L (98-108); Estimated Glomerular Filt Rate > 60; Glucose 115 mg/dL (70-99); Osmolality Calculated 294 mOsm/kg (285-295); Sodium 140 mmol/L (136-145); Total Protein 6.8 g/dL (6.4-8.2)
[2024-03-04 09:18] LABS: CA 15-3 19 U/mL (<32)
== END 2024-03-01 21:17 | disposition home or self-care (01) ==
LOC: CHSLAB 21:23
PROVIDERS: PCP Physician Assistant; Visit Provider Internal Medicine Hematology & Oncology
DX: C50.411 Malignant neoplasm of upper-outer quadrant of right female breast (principal); Z17.0 Estrogen receptor positive status [ER+]
CPT/HCPCS: 36415; 80053; 85025; 86300

== ENCOUNTER 2024-03-20 13:09 | Outpatient (CLI) | payer OTHER, SELFPAY ==
--- NOTE | ~2024-03-20 | MM_ITS ---
EXAMINATION: MM diagnostic devin LT w enmanuel HISTORY: Left breast mass TECHNIQUE: Additional 3-D tomosynthesis images of the left breast were performed and synthetic 2-D im ages were generated. CAD analysis was submitted and interpreted. COMPARISON: 08/22/2023 BREAST PARENCHYMAL COMPOSITION: Not dense: There are scattered areas of fibroglandular density. FINDINGS: Stable benign-appearing calcified mass upper outer quadrant of the left breast. No new mass es, calcifications or architectural distortion in the left breast to suggest malignancy. IMPRESSION: 1. No mammographic evidence for malignancy in the left breast. 2. . Routine yearly screening mammogram and regular clinical breast examination are recommended. BI-RADS Category 2: Benign finding(s). Reviewed, dictated and finalized at location B.
== END 2024-03-20 13:10 | disposition home or self-care (01) ==
PROVIDERS: PCP Physician Assistant; Visit Provider Internal Medicine Hematology & Oncology
DX: N63.21 Unspecified lump in the left breast, upper outer quadrant (principal)
CPT/HCPCS: 77061; 77065; G0279

== ENCOUNTER 2024-07-21 07:25 | Outpatient (CLI) | payer OTHER, SELFPAY ==
--- NOTE | ~2024-07-21 | CT_ITS ---
EXAMINATION: CT sinus wo con DATE: 07/21/2024 08:01 INDICATION: Chronic sinusitis with drainage. TECHNIQUE: Computed tomography (CT) of the paranasal sinuses was performed without intravenous contra st. Coronal reconstructions were obtained. Iterative reconstruction technique was employed. The dose- length product was 269.07 mGy-cm. COMPARISON: 05/10/2021 FINDINGS: Interval postoperative changes of bilateral uncinectomies, middle meatus antrostomies and ethmoidecto mies. Scattered mild mucosal thickening in the paranasal sinuses. Nasal septum is midline. Mastoid ai r cells and middle ear cavities are clear. Orbits are normal. IMPRESSION: 1. That is post bilateral uncinectomies, middle meatus antrostomies and ethmoidectomies with mild sca ttered mucosal thickening the paranasal sinuses. Reviewed, dictated and finalized at location B. ERATURE LOGGING OPERATOR IMPRESSION: 1. That is post bilateral uncinectomies, middle meatus antrostomies and ethmoid ectomies with mild scattered mucosal thickening the paranasal sinuses.
--- NOTE | ~2024-07-21 | CT_ITS ---
CT Scan of the Chest without Contrast: Clinical Indication: Lung cancer screening Technique: Contiguous sections were acquired throughout the chest without intravenous contrast. Dose reduction technique was used on this scan by utilizing automated exposure control and iterative recon struction technique. The dose-length product (DLP) was 72.09 mGy-cm. Findings: There is no evidence of any significant mediastinal, hilar or axillary lymphadenopathy. The mediastin al soft tissues appear normal. There is no evidence of pleural or pericardial effusion. The lungs are clear. No pulmonary nodules or infiltrates are noted. Images through the upper abdomen reveal, calcified gallstones. Suggestion of prior bilateral mastecto my and breast reconstructive surgery. Large extensive calcified masslike lesion present in the left b reast region measuring 3.5 cm in diameter, which could reflect fat necrosis, though is indeterminate. Impression: Lung RADS 1-S:. Negative. 12 month follow-up screening CT advised. 3.5 cm extensively calcified masslike lesion in the left breast region is suggestive of fat necrosis related to suspected prior breast reconstruction surgery. Other etiologies are not completely exclude d. Correlate with relevant clinical history and physical exam. Reviewed, dictated and finalized at location M. OYMENT ASSISTANT Impression: Lung RADS 1-S:. Negative. 12 month follow-up screening CT advised. 3.5 cm extensively calcified masslike lesion in the left breast region is sugge stive of fat necrosis related to suspected prior breast reconstruction surgery. Other etiologies are not completely excluded. Correlate with relevant clinical history and physical exam.
== END 2024-07-21 07:26 | disposition home or self-care (01) ==
LOC: CHSIMG 07:27
PROVIDERS: PCP Family Medicine; Visit Provider Family Medicine
DX: J32.9 Chronic sinusitis, unspecified (principal); Z87.891 Personal history of nicotine dependence; R92.8 Other abnormal and inconclusive findings on diagnostic imaging of breast
CPT/HCPCS: 70486; 71271

== ENCOUNTER 2024-10-14 07:06 | Outpatient (CLI) | payer OTHER, SELFPAY ==
--- OUTSIDE RECORDS SUMMARY | 2024-10-14 07:09 | XMS_ITS | Clinical Summary ---
Author Organization [facility] Address [facility] [place] [address] Care Team Providers Care Reweaver Name Role Phone Ella Weston MD Primary Care Provider [phone] Allergies Active Allergy Reactions Criticality Noted Date Comments Beef-Derived Drug Products Unknown Codeine Nausea and Vomiting 07/10/2023 Hydrocodone Itching 07/10/2023 Furosemide Itching 07/10/2023 Metformin Diarrhea 07/10/2023 Sertraline Diarrhea 07/10/2023 Medications No known medications Social History Tobacco Use Types Packs/Day Years Used Date Smoking Tobacco: Never Assessed Comments No Sex and Gender Information Value Date Recorded Sex Assigned at Not on file Legal Sex Female 8:30 PM CDT Gender Identity Not on file Sexual Orientation Not on file Last Filed Vital Signs Vital Sign Reading Time Taken Comments Blood Pressure 116/95 07/10/2023 2:27 PM BANBURY MACHINE OPERATOR Pulse 82 07/10/2023 2:27 PM BAN[place]Y MACHINE OPERATOR Temperature 36.8 C (98.2 F) 07/10/2023 2:27 PM BANBURY MACHINE OPERATOR Respiratory Rate 18 07/10/2023 2:27 PM BANBURY MACHINE OPERATOR Oxygen Saturation 99% 07/10/2023 2:27 PM BAN[place]Y MACHINE OPERATOR Inhaled Oxygen Concentration - - Weight 90.7 kg (200 lb) 07/10/2023 2:27 PM BANBURY MACHINE OPERATOR Height 160 cm (5' 3 ) 07/10/2023 2:27 PM BANBURY MACHINE OPERATOR Body Mass Index 35.43 07/10/2023 2:27 PM BANBURY MACHINE OPERATOR Plan of Treatment Health Maintenance Due Date Last Done Comments Cervical Cancer Screening Pa p Smear (Age 30 to 64) Every 3 Years 1964 Colorectal Cancer Screening Colonoscopy (10 Years) 1964 Annual Physical 10/23/1967 Hepatitis C 1982 DTaP, Tdap and Td Vaccines ( 1 - Tdap) 10/23/1983 Cervical Cancer Screening Pa p with HPV Testing (Age 30 to 64) Every 5 Years 1994 Cervical Cancer Screening wi th HPV 1994 Mammogram Screening 2004 COVID-19 Vaccine (4 - 2023-2 5 season) 2024 05/27/2021, 10/08/2020, 09/10/2020 Influenza Adult (#1) 2024 06/22/2017 Zoster Vaccines Completed 10/27/2021, 04/28/2021 Pneumococcal Vaccine: Pediatrics (0 to 5 Years) and At-Risk Patients (6 to 64 Years) Aged Out 11/16/2022, 07/23/2013, 07/23/2003 No longer eligible based on patient's age to complete this topic Meningococcal B Vaccine Aged Out No l onger eligible based on patient's age to complete this topic Meningococcal Vaccine Aged Out No katt tiarra eligible based on patient's age to complete this topic RSV Immunizations Under 20 Months Aged Out No longer eligible b ased on patient's age to complete this topic Insurance [facility] Care Teams Reweaver Relationship Specialty [place] [address] [place] [address] [place] [address] PCP - General FAMILY PRACTICE 07/10/23
--- OUTSIDE RECORDS SUMMARY | 2024-10-14 07:10 | XMS_ITS | Clinical Summary ---
Author Organization [facility] Madi Morales Address [address] [place] [address] Care Team Providers Care Alligator Shear Operator Name Role Phone Ella Weston MD Primary Care Provider Allergies Active Allergy Reactions Criticality Noted Date Comments Codeine Nausea and Vomiting Low 01/15/2018 Furosemide Itching Low 01/15/2018 Hydrocodone Itching Low 01/15/2018 Hymenoptera Allergenic Extract Anaphylaxis High 07/0 09/2017 Metformin Diarrhea Low 01/15/2018 Sertraline Diarrhea Low 01/15/2018 Tramadol Nausea and Vomiting Low 01/15/2018 Medications potassium chloride (KLOR-CON) 10 mEq Extended Release tablet Take 10 mEq by mouth. Active omeprazole (PriLOSEC) 20 mg Capsule, Delayed Release(E.C.) Take 20 mg by mouth. Active Black Cohosh 40 mg Capsule Take 40 mg by mouth. Active atorvastatin (LIPITOR) 80 mg tablet 9 Active rclpjwh-M5-H-FA -E61-V-jrpefcml (ORTHO-TABS) 500 mg calcium- 400 unit-15 mcg Tablet Take 600 mg by mouth. Active aspirin/acetami nophen/ramandeep carb (ASPIRIN-ACETAM INOPHEN, BUFFER, ORAL) Take 2 Tablets by mouth. Active Mounjaro 5 mg/0.5 mL Pen Injector 15 mg by abdominal subcutaneous route every . 3 Active butalbital-acet aminophen-caffe ine (FIORICET) 50-325-40 mg tablet Take 1 Tablet by mouth every 4 hours as needed (migraine). 3 Active torsemide (DEMADEX) 10 mg Tablet Take 10 mg by mouth daily. 3 Active traZODone (DESYREL) 100 mg tablet Take 100 mg by mouth daily at bedtime. 3 Active montelukast (SINGULAIR) 10 mg tablet Take 10 mg by mouth daily at bedtime. Active rimegepant (Nurtec ODT) 75 mg Tablet, Rapid Dissolve Take 75 mg by mouth every other day. Active Active Problems Problem Noted Date Diagnosed Date Malignant neoplasm of upper- outer quadrant of right breast in female, estrogen receptor positive 06/13/2019 Encounters Date Type Department Care Team Description 09/29/2024 External Device Data STL ABSTRACTION Provider, Abstract 09/10/2024 External Device Data STL ABSTRACTION Provider, Abstract 09/09/2024 External Device Data STL ABSTRACTION Provider, Abstract 09/04/2024 2:30 PM SECURITIES SETTLEMENT PROCESSOR Office Visit [facility] Oncology and Hematology [facility] [address] [place] [address] Scot Ramos MD Mass of left breast, unspecified quadrant (Primary Dx); Visit for screening mammogram 08/26/2024 External Device Data STL ABSTRACTION Provider, Abstract 08/14/2024 External Device Data STL ABSTRACTION Provider, Abstract 08/12/2024 External Device Data STL ABSTRACTION Provider, Abstract 08/05/2024 External Device Data STL ABSTRACTION Provider, Abstract 07/29/2024 External Device Data STL ABSTRACTION Provider, Abstract from Last 3 Months Family History Medical History Relation Name Comments Cancer Brother 1 Cancer Mother Heart Disease Mother Relation Name Status Comments Brother 1 Alive Brother 2 BROTHER Alive Father Alive Mother Sister Alive Social History Tobacco Use Types Packs/Day Years Used Date Smoking Tobacco: Former Cigarettes 1 25 1 08/13/1981 - 06/13/2007 Smokeless Tobacco: Never Tobacco Cessation:Counseling Given: Not Answered Comments No Sex and Gender Information Value Date Recorded Sex Assigned at Not on file Legal Sex Female 2:06 PM SECURITIES SETTLEMENT PROCESSOR Gender Identity Not on file Sexual Orientation Not on file Last Filed Vital Signs Vital Sign Reading Time Taken Comments Blood Pressure 107/63 09/04/2024 2:20 PM SECURITIES SETTLEMENT PROCESSOR Pulse 84 09/04/2024 2:20 PM SECURITIES SETTLEMENT PROCESSOR Temperature 36.2 C (97.1 F) 09/04/2024 2:20 PM SECURITIES SETTLEMENT PROCESSOR Respiratory Rate 15 09/04/2024 2:20 PM SECURITIES SETTLEMENT PROCESSOR Oxygen Saturation 94% 09/04/2024 2:2 0 PM SECURITIES SETTLEMENT PROCESSOR Inhaled Oxygen Concentration - - Weight 71.9 kg (158 lb 9.6 oz) 09/04/2024 2:20 PM SECURITIES SETTLEMENT PROCESSOR Patient stated that this is the correct weight Height 160 cm (5' 3 ) 08/11/2021 3:24 PM SECURITIES SETTLEMENT PROCESSOR Body Mass Index 28.09 08/11/2021 3:24 PM SECURITIES SETTLEMENT PROCESSOR Plan of Treatment Upcoming Encounters Date Type Department Care Team (Late st Contact Info) Description 04/15/2025 1:00 PM CDT Office Visit [facility] Oncology and Hematology [facility] [address] [facility] [address] [place] [address] Scot Ramos MD [address] [facility] [address] [place] [address] Health Maintenance Due Date Last Done Comments DTAP/TDAP/TD VACCINES (1 - Tdap) 10/23/1983 HEPATITIS B VACCINES (1 of 3 - 19+ 3-dose series) 10/23/1983 PAP SMEAR 1994 COLORECTAL SCREENING 2009 Colorectal Cancer Screening 2009 FIT-DNA Q 3 years 2009 FIT/FOBT Q 1 year 2009 Flex Sig/CT Colonography Q 5 years 2009 ZOSTER VACCINE (1 of 2) 2014 INFLUENZA VACCINE (#1) 2024 Pre-Diabetes and Diabetes Screening 07/23/202407/23, 02/01/2021 BREAST CANCER SCREENING 03/20/2025 03/20/2024 Procedures Procedure Name Priority Date/Time Associated Diagnosis Comments MAMMO DIAGNOSTIC UNI LEFT W OR WO CAD Routine 03/20/2024 3:33 PM CDT HEMOGLOBIN A1C Routine 07/23/2021 from Last 3 Months or Most Recently Relevant to Health Maintenance Results * MAMMO DIAGNOSTIC UNI LEFT W OR WO CAD (03/20/2024 3:33 PM CDT) Anatomical Region Laterality Modality Breast Left Mammography Scot Ramos MD MAMMO ORDERABLES Final Result * HEMOGLOBIN A1C (07/23/2021) Blood us Abstract Provider CHEMISTRY ORDERABLES Final Res ult from Last 3 Months or Most Recently Relevant to Health Maintenance Insurance [facility] [id number] Care Teams Alligator Shear Operator Relationship Specialty Start Date End Date Ella Weston MD [address] [place] [id number] PCP - General Family Practice 05/26/19
--- OUTSIDE RECORDS SUMMARY | 2024-10-14 07:10 | XMS_ITS | Clinical Summary ---
Author Organization [facility] Address [address] [place] [address] Care Team Providers Care Turn Machine Operator Name Role Phone Ella Weston MD Primary Care Provider [phone] Source Comments [facility],non-owned Affiliates and Associated Physician Practices is amultiple site organization consisting of ambulatory clinics and hospital sitesin [place], [place], [place] and [place]. This disclosure is being madepursuant to the Care Everywhere program and may not contain all information available regarding this patient. Last updated 18.[facility] Allergies Active Allergy Reactions Criticality Noted Date Comments bee sting [Other] Anaphylaxis High 01/22/2018 Codeine Nausea and/or Vomiting 01/15/2018 Hydrocodone Itching 01/15/2018 Furosemide Itching 01/15/2018 Rash Metformin Diarrhea 01/15/2018 Tramadol Nausea and/or Vomiting 01/15/2018 Sertraline Diarrhea 01/15/2018 Medications * Be aware that medications may not be up to date on this document. Alwaysverify current medications with the patient. Medication Sig Dispensed Refills Start Date End Date Status pioglitazone (ACTOS) 15 MG tablet Take 15 mg by mouth once daily Active atorvastatin (LIPITOR) 80 MG tablet Take 80 mg by mouth at bedtime Active Loratadine 10 MG Active losartan (COZAAR) 25 MG tablet Take 25 mg by mouth once daily Active omeprazole (PRILOSEC) 20 MG capsule Take 20 mg by mouth daily before breakfast Active fluticasone-salmete rol (ADVAIR DISKUS) 250-50 MCG/DOSE inhaler Inhale 1 puff by mouth 2 times daily Active Black Cohosh 40 MG Take 40 mg by mouth Active buPROPion (WELLBUTRIN) 100 MG tablet Take 100 mg by mouth 3 times daily Active calcium 500 mg TABS tablet Take 600 mg by mouth 2 times daily with morning and evening meal Active Clementon-3 Fatty Acids (FISH OIL) 1000 MG capsule Active gabapentin (NEURONTIN) 600 MG tablet Take 600 mg by mouth 2 times daily Active glipiZIDE (GLUCOTROL) 5 MG tablet Take 5 mg by mouth daily before breakfast Active potassium chloride (KLOR-CON 10) 10 MEQ tablet Take 10 mEq by mouth once daily Active Melatonin-Pyridoxin e (MELATIN PO) Take 10 mg by mouth A ctive ACETAMINOPHEN PO Take 1,000 mg by mouth Active ALBUTEROL IN Inhale 2 puffs by mouth Active Aspirin-Acetaminoph en-Caffeine (EXCEDRIN PO) Take 2 tablets by mouth Active Butalbital-Aspirin- Caffeine (FIORINAL PO) Take 50-325 tablets by mouth Active ketorolac (TORADOL) 10 MG tablet Take 10 mg by mouth every 6 hours as needed for Pain Active meloxicam (MOBIC) 15 MG tablet Take 1 tablet by mouth once daily 30 tablet 2 01/22/2018 Active Additional Information Patient not taking.Reported on 02/04/2019 empagliflozin (JARDIANCE) 10 MG tablet Take 10 mg by mouth once daily Active amitriptyline (ELAVIL) 150 MG tablet 01/06/2019 Active anastrozole (ARIMIDEX) 1 MG tablet 10/12/2018 Active diphenoxylate-atrop ine (LOMOTIL) 2.5-0.025 MG tablet 12/20/2018 Activ e JARDIANCE 25 MG tablet 01/24/2019 Active hydroCHLOROthiazide (HYDRODIURIL) 25 MG tablet 10/12/2018 Active lidocaine (XYLOCAINE) 5 % ointment Apply 1 tube to affected area once daily 50 g 5 02/04/2019 Active lidocaine (LIDODERM) 5 % patch Apply 1 patch to skin once daily Apply to most painful area. Leave on for up to 12 hrs; then don't use more patches for 12 hrs 30 patch 5 02/04/2019 Active Active Problems Problem Noted Date Diagnosed Date Arthralgia of both lower legs 01/22/2018 Myalgia 01/22/2018 Other fatigue 01/22/2018 Family History Medical History Relation Name Comments Cancer - Lung Mother Hypertension Mother Depression Neg Hx Seizures Neg Hx Relation Name Status Comments Mother Social History Tobacco Use Types Packs/Day Years Used Date Smoking Tobacco: Former Cigarettes 1 25 0 01/22/1982 - 01/22/2007 Smokeless Tobacco: Never Alcohol Use Standard Drinks/Week Comments No 0 (1 standard drink = 0.6 oz pur e alcohol) Sex and Gender Information Value Date Recorded Sex Assigned at Not on file Gender Identity Not on file Sexual Orientation Not on file Last Filed Vital Signs Vital Sign Reading Time Taken Comments Blood Pressure 146/96 02/04/2019 11:36 AM CDT Pulse 99 02/04/2019 11:36 AM CDT Temperature 37.3 C (99.1 F) 08/06/2018 3:40 PM SOLUTION SPEC Respiratory Rate - - Oxygen Saturation 93% 04/15/2018 10:35 AM CDT Inhaled Oxygen Concentration - - Weight 117 kg (258 lb) 02/04/2019 11:36 AM CDT Height 160 cm (5' 3 ) 02/04/2019 11:36 AM CDT Body Mass Index 45.7 02/04/2019 11:36 AM CDT Plan of Treatment Health Maintenance Due Date Last Done Comments COLOGUARD (AGES 45-75) - COL ON CA SCREENING 1964 COLON MONITORING 1964 COLONOSCOPY - COLON CA SCREENING 1964 CT COLONOGRAPHY - COLON CA SCREENING 1964 Colorectal Cancer Screening 1964 FIT - COLON CA SCREENING 1964 FLEX SIG - COLON CA SCREENING 1964 MAMMOGRAM 1964 PAP SMEAR 1964 HIV SCREENING 10/23/1979 HEPATITIS C SCREENING 10/18/1982 DTAP/TDAP/TD VACCINES (1 - Tdap) 10/23/1983 HEPATITIS B VACCINE (1 of 3 - 19+ 3-dose series) 10/23/1983 PNEUMOCOCCAL VACCINE 50+ (1 of 1 - PCV) 2014 ZOSTER VACCINE (1 of 2) 2014 SCREENING FOR DIABETES 01/15/2018 COVID-19 VACCINE ( - 2023-2 5 season) 2024 INFLUENZA VACCINE (#1) 2024 DEPRESSION SCREENING 07/23/2024 HIB VACCINE Aged Out No longer eligi ble based on patient's age to complete this topic HPV VACCINE Aged Out No longer eligi ble based on patient's age to complete this topic MENINGOCOCCAL (Group B) VACC INE SHARED DECISION-MAKING Aged Out No longer eligibl e based on patient's age to complete this topic MENINGOCOCCAL GROUPS A/C/Y/W VACCINE Aged Out No longer eligible b ased on patient's age to complete this topic PNEUMOCOCCAL VACCINE Aged Out No long er eligible based on patient's age to complete this topic Care Teams Turn Machine Operator Relationship Specialty Start Date End Date Ella Weston MD PCP - General 11/12/17
[2024-10-16 03:14] LABS: Rubella IgG Antibody 1.58 Index; Rubeola Measles IgG >300.00 AU/mL
== END 2024-10-14 07:07 | disposition home or self-care (01) ==
LOC: CHSLAB 07:07
PROVIDERS: PCP Family Medicine; Visit Provider Family Medicine
DX: Z91.89 Other specified personal risk factors, not elsewhere classified (principal)
CPT/HCPCS: 36415; 86735; 86762; 86765

== ENCOUNTER 2024-12-20 08:56 | Emergency (ER) | payer OTHER, SELFPAY ==
[2024-12-20 09:09] VITALS: BP 94/68; PULSE 89; RESP 16; TEMP 36.4; O2SAT 97
--- NOTE | 2024-12-20 09:33 | ED.URI ---
HPI - URI/Sore Throat General Chief Complaint: Upper Respiratory Infection Stated Complaint: SOB/COUGH/HEADACHE/EAR POPS/TIRED Time Seen by Provider: 12/20/24 09:33 Source: patient, RN notes reviewed and old records reviewed Mode of arrival: ambulatory Limitations: no limitations History of Present Illness HPI Narrative: 5-year-old female presents to the [facility] with complaints of cough, shortness of breath, headache, ears popping and fatigue. Patient states that started on Sunday. He went to an urgent care on Sunday was prescribed amoxicillin. States that she has been taking it 3 times a day. Patient states she has had no improvement of her cough. Has not been using any other jwwn-vjk-wonaidn products to help with symptoms. States that she has tried a very old inhaler with no relief. Patient denies any chest pain, swelling, fevers, abdominal pain Onset (ago): day(s) (5) Treatments prior to arrival: antibiotics Related Data Home Medications ?Medication ?Instructions ?Recorded ?Confirmed ?Last Taken ?Type wywdkab-rlibhthsblggg-vduvqgjx 250 2 tablet PO Q4-6H PRN Migraine 09/18/20 12/20/24 06/01/21 History mg-250 mg-65 mg tablet (Excedrin Headache Migraine) atorvastatin 80 mg tablet 80 mg PO DAILY 09/18/20 12/20/24 06/29/21 History calcium-ergocalciferol (vit D2) 1 cap PO BID 09/18/20 12/20/24 06/29/21 History capsule multivitamin with minerals-folic 1 tablet PO DAILY 09/18/20 12/20/24 06/29/21 History acid 0.4 mg tablet (Adult One Daily Multivitamin) potassium chloride 10 mEq 30 meq PO BID 09/18/20 12/20/24 06/29/21 History capsule,extended release ewvuscoxyx-usaqhhv-xyeiqefb 50 1 tablet PO Q4H PRN Migraine 06/08/21 12/20/24 06/01/21 History mg-325 mg-40 mg tablet Headache acetaminophen 500 mg capsule 1,000 mg PO Q6H PRN Pain 03/23/22 01/01/24 Unknown History aspirin 81 mg tablet,delayed 81 mg PO DAILY 03/23/22 12/20/24 Unknown History release torsemide 10 mg tablet 10 mg PO QAM 08/27/23 12/20/24 Unknown History omeprazole magnesium 20 mg 40 mg PO BID 07/04/24 12/20/24 Unknown History tablet,delayed release (Prilosec OTC) Allergies Allergy/AdvReac Type Severity Reaction Status Date / Time furosemide (From Lasix) Allergy Severe Hives Verified 12/20/24 09:10 hydrocodone Allergy Severe Hives Verified 12/20/24 09:10 morphine Allergy Other Verified 12/20/24 09:10 oxycodone (From Percocet) Allergy Other Verified 12/20/24 09:10 metformin AdvReac Severe Diarrhea Verified 12/20/24 09:10 codeine AdvReac Intermediate Vomiting Verified 12/20/24 09:10 sertraline (From Zoloft) AdvReac Intermediate Diarrhea Verified 12/20/24 09:10 tramadol AdvReac Intermediate Nausea and Verified 12/20/24 09:10 Vomiting PLATELET RICH PLASMA AdvReac Severe Other Uncoded 12/20/24 09:10 Review of Systems Review of Systems: All systems reviewed & are unremarkable except as noted in HPI and below Constitutional: Constitutional: Reports as per HPI, Reports fatigue and Denies fever(s) ENT: Reports system reviewed and no additional complaints, except as documented Cardiovascular: Cardiovascular: Reports no additional cardiovascular complaints, Denies chest pain and Denies dyspnea Respiratory: Respiratory: Reports as per HPI, Denies chest congestion, Reports cough, Denies pain with cough and Reports dyspnea ( with coughing) Musculoskeletal: Musculoskeletal: Reports no additional musculoskeletal complaints Integumentary/Breasts: Skin/Breast: Reports system reviewed and no additional complaints, except as docu PMFSH Past Medical History Medical History At increased risk for exposure to measles virus Subacromial impingement of right shoulder Bursitis of shoulder, right Rotator cuff tear, right Right knee sprain History of breast cancer with bilateral mastectomy and radiation Ductal carcinoma of right breast Hyperthyroidism Vitamin B12 deficiency Hypercholesterolemia Hypomagnesemia Insomnia Chronic migraine Obstructive sleep apnea syndrome, moderate HTN (hypertension) Chronic right shoulder pain De Quervain's tenosynovitis Chronic neuropathic pain Numbness and tingling Neuropathy COPD (chronic obstructive pulmonary disease) Asthma Type 2 diabetes mellitus Surgical History Surgical History S/P nasal surgery 06/14/2021 Bilateral endoscopic image guided maxillary antrostomies 2. Bilateral endoscopic image guided total ethmoidectomies 3. Bilateral image guided endoscopic sphenoidotomies 4. Bilateral image guided frontal sinusotomies 5. Endoscopic assisted septoplasty 6. Inferior turbinate reduction submucosally with outfracture Surgeon History of tonsillectomy History of bilateral breast reduction surgery H/O mastectomy Family History Family History Father Cancer Hypertension Mother Asthma Cancer Hypertension Depression Heart disease Cerebrovascular accident Thyroid disorder Sibling Alcoholism Cancer Other Asthma Depression Grandparent Diabetes mellitus Hypertension Heart disease Cerebrovascular accident Grandparent Cancer Cerebrovascular accident Other Arthritis HLD (hyperlipidemia) Kidney disorder Lung cancer Neuropathy Skin cancer Social History Social History Social History: 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 She has 2 children Which her daughters. She is a former smoker. The patient is listed as being single. the patient denies any alcohol marijuana or illicit drugs. She does not have a durable power commonwealth attorney for healthcare. Code status full code Smoking packs per day: 1.5 Smoking cigarettes per day: 30.0 Years smoked: 30 Smoking pack-years: 45.00 Smoking status: Former smoker Tobacco type: cigarettes Second hand tobacco smoke exposure: No Smoking end date: 07/23/06 Alcohol intake: current Alcohol use details: 3/YEAR Substance use: never Substance use type: does not use Living arrangements: alone Occupation/Education: occupation Gender identity (if verbalized by the patient): Female Spiritual care concerns: No Comments At the time of my signature, I reviewed and agree with the nursing past medical, surgical, social, and family history. There is no relevant family history pertinent to the patient complaint. Exam Const: General: cooperative, no acute distress, well developed, alert, ill appearing chronically, tired appearing and well nourished Nutritional Appearance: well nourished Orientation/consciousness: patient oriented x3 Limitations: no limitations HENMT: Head: normal to inspection Ears: hearing grossly normal bilaterally, external ears normal, TM's normal bilaterally, mastoids normal and no periauricular adenopathy Mouth: Yes Normal oral and palatal mucosa present, Yes lip normal, Yes tongue normal and Yes moist mucous membranes Throat: posterior oropharynx normal, uvula midline, postnasal drainage, tonsils absent and no uvular edema Eyes: General: appearance normal, both eyes and all related structures Alignment and Position: alignment normal Neck: Neck: normal visual inspection, full ROM, no lymphadenopathy and no meningeal signs Chest: Chest palpation & inspection: normal inspection of the chest Resp: Effort & Inspection: normal respiratory effort and able to speak in complete sentences Auscultation: clear to auscultation bilaterally, no crackles, no rales, no rhonchi, no wheezes and diminished lung sounds bilateral in the lower lung liriano Cardio: Rate: regular rate Skin: General skin exam: normal color and no rashes or lesions noted Neuro: General: patient oriented x3, gait normal, moves all extremities and no meningeal signs Cognition (Neuro): normal cognition Speech: normal speech Gait exam (Neuro): Normal gait present Extrem: General: normal to inspection, full ROM, capillary refill normal and normal gait Psych: Appearance: grossly normal and well kempt Mental Status: mental status grossly normal Speech and movement: Normal speech and movement present and Clear speech present Affect: normal affect Attitude: cooperative Course Course Level of Care: Express Care Visit Vital Signs Vital signs: Vital Signs Temperature 97.5 F L 12/20/24 09:09 Pulse Rate 89 12/20/24 09:09 Respiratory Rate 16 12/20/24 09:09 Blood Pressure 94/68 L 12/20/24 09:09 Pulse Oximetry 97 12/20/24 09:09 Temperature 97.5 F L 12/20/24 09:09 Pulse Rate 89 12/20/24 09:09 Respiratory Rate 16 12/20/24 09:09 Blood Pressure 94/68 L 12/20/24 09:09 Pulse Oximetry 97 12/20/24 09:09 Reviewed MDM - URI/Sore Throat MDM Narrative Medical decision making narrative: patient sitting in exam room. Patient is nontoxic, vitals stable. Five days of symptoms, already started on amoxicillin by an outside facility. Patient's lungs are clear but diminished. No coughing noted on exam. Exam consistent with bronchitis, viral, URI. Patient appropriate for outpatient treatment, continue antibiotics, adding inhaler that is not discussed signs and symptoms to proceed to the emergency room which she verbalized understanding.Patient states that if she is not better by Sunday she will call her primary care provider for further evaluation. Work note given. Discharge instructions reviewed with patient, as well as provided in writing per nursing staff. The instructions also include specific and strict return/GO TO THE ER as well as f/u information. All questions have been answered, and the patient deny any further questions with discharge and discharge plan. Some parts of this dictation were generated by voice recognition software and may contain typographical and/or grammatical inaccuracies. Differential Diagnosis Differential diagnosis: Likely upper respiratory infection, otitis media, sinusitis, viral infection, bronchitis, influenza and pharyngitis Critical Care Time Critical Care Time Critical Care Time: No Discharge Plan Discharge Clinical Impression: Upper respiratory infection, PND (post-nasal drip), Bronchitis Patient Disposition: Home Condition: Stable Instructions: Antibiotic Form, Upper Respiratory Infection (ED), Postnasal Drip (DC) Additional Instructions: It is very important to treat your symptoms. Drink plenty of water, Gatorade, Pedialyte, ice pops or Jell-O. -Alternate Tylenol and Motrin per package directions for fever or pain. You can alternate every 4 hours -Antihistamine medication such as Zyrtec/Claritin/Sara during the day can help improve symptoms. -doing daily nasal irrigations can help relieve pressure your sinuses. Things like a Neti pot -Use Flonase twice a day for 5 days then daily to help reduce the inflammation and dry up your sinuses. -You can also use Mucinex. Be sure to drink plenty of water with this medication at least 8 ounces with every dose and it is important to drink 8 to 10 glasses of water per day. Water is a natural decongestant -Eat and drink things that are easy to swallow, like tea or soup, or popsicles. -Oral rinses such as: Salt water gargles and/or may use topical anesthetic (eg. Chloraseptic spray) or lozenges to relieve dryness or throat pain). -Frequent hand washing or hand charging machine operator is one of the best ways to prevent spread of infection. -Using a vaporizer or humidifier at night will also help thin secretions and help with coughing up phlegm. -Follow up with primary care provider in 7-10 days if condition is not improving - For new or worsening symptoms go directly to the nearest ER Patient Language: [place] Prescriptions: New albuterol sulfate [Ventolin HFA] 90 mcg/actuation HFA aerosol inhaler 2 puff inhalation QID PRN (Reason: shortness of breath or wheezing) Qty: 6.7 0RF No Action atorvastatin 80 mg tablet 80 mg PO DAILY potassium chloride 10 mEq capsule, extended release 30 meq PO BID Excedrin Migraine 250-250-65 mg Tablet 2 tablet PO Q4-6H PRN (Reason: Migraine Headache) calcium-vitamin D2 Capsule 1 cap PO BID multivit with min-folic acid [Adult One Daily Multivitamin] 0.4 mg Tablet 1 tablet PO DAILY aspirin 81 mg tablet,delayed release (DR/EC) 81 mg PO DAILY Patient Comments: on provided med list acetaminophen 500 mg capsule 1,000 mg PO Q6H PRN (Reason: Pain) Patient Comments: on provided med list omeprazole magnesium [Prilosec OTC] 20 mg tablet,delayed release (DR/EC) 40 mg PO BID ghngihuvev-bdasjwq-lhnlsmpb 50-325-40 mg Tablet 1 tablet PO Q4H PRN (Reason: Migraine Headache) torsemide 10 mg Tablet 10 mg PO QAM tirzepatide 7.5 mg/0.5 mL pen injector 7.5 mg SUBCUT WEEKLY 28 Days Qty: 2 1RF escitalopram oxalate 10 mg tablet See Rx Instructions .ROUTE .COMPLEX Qty: 90 0RF Dose Instruction: TAKE 1 TABLET DAILY Rx Instructions: TAKE 1 TABLET DAILY Nurtec ODT 75 mg tablet,disintegrating 75 mg PO ONCE Qty: 45 0RF Rx Instructions: Patient takes every other day montelukast 10 mg tablet 10 mg PO DAILY Qty: 90 1RF bupropion HCl 150 mg tablet sustained-release 12 hr 450 mg PO DAILY Qty: 270 0RF trazodone 100 mg tablet 100 mg PO HS Qty: 90 0RF Follow-up/Referrals: Idris Cote DO [Primary Care Provider] - 3 Days (express care follow up ) Stand Alone Forms: Work/School Release IP Time of Disposition: 09:46
== END 2024-12-20 09:52 | disposition home or self-care (01) ==
PROVIDERS: Emergency Provider Nurse Practitioner; PCP Family Medicine
DX: J06.9 Acute upper respiratory infection, unspecified (principal); R09.82 Postnasal drip; J40 Bronchitis, not specified as acute or chronic; Z87.891 Personal history of nicotine dependence; E05.90 Thyrotoxicosis, unspecified without thyrotoxic crisis or storm; E78.00 Pure hypercholesterolemia, unspecified; I10 Essential (primary) hypertension; E11.40 Type 2 diabetes mellitus with diabetic neuropathy, unspecified; J44.9 Chronic obstructive pulmonary disease, unspecified; Z85.3 Personal history of malignant neoplasm of breast; Z90.13 Acquired absence of bilateral breasts and nipples; Z79.82 Long term (current) use of aspirin
CPT/HCPCS: 99213; G0463

== ENCOUNTER 2024-12-24 11:47 | Outpatient (CLI) | payer OTHER, SELFPAY ==
--- NOTE | ~2024-12-24 | XR_ITS ---
XR ribs RT 2V w CXR 2V Ordering provider: Idris Cote DO History: . R07.81 - Pleurodynia, deformity rt side x10yr post breast ca . Comparison: September 18, 2020 FINDINGS: BONES: No acute rib fracture. MEDIASTINUM: The cardiac silhouette is not enlarged. LUNGS: No infiltrates, effusions or pneumothorax. OTHER: No free air under the diaphragm. Postoperative changes in the pelvis. Calcifications projected over the left hemithorax. IMPRESSION: 1. No right rib fracture. 2. No acute cardiopulmonary findings. Reviewed, dictated and finalized at location A.
--- NOTE | ~2024-12-24 | XR_ITS ---
XR sacrum coccyx min 2V Ordering provider: Idris Cote DO History: . Sacrococcygeal disorders, not elsewhere classified, fall 1yr . Comparison: None. FINDINGS: BONES: No acute fracture or dislocation. JOINTS: The sacroiliac joint spaces are normal. SOFT TISSUES: Soft tissues are normal. IMPRESSION: No acute osseous abnormality sacrum and coccyx. Reviewed, dictated and finalized at location A.
--- OUTSIDE RECORDS SUMMARY | 2024-12-24 11:50 | XMS_ITS | Clinical Summary ---
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 Gender Identity Not on file Sexual Orientation Not on file Last Filed Vital Signs Vital Sign Reading Time Taken Comments Blood Pressure 107/63 09/04/2024 2:20 PM COMPOSITION SIDING WORKER Pulse 84 09/04/2024 2:20 PM COMPOSITION SIDING WORKER Temperature 36.2 C (97.1 F) 09/04/2024 2:20 PM COMPOSITION SIDING WORKER Respiratory Rate 15 09/04/2024 2:20 PM COMPOSITION SIDING WORKER Oxygen Saturation 94% 09/04/2024 2:2 0 PM COMPOSITION SIDING WORKER Inhaled Oxygen Concentration - - Weight 71.9 kg (158 lb 9.6 oz) 09/04/2024 2:20 PM COMPOSITION SIDING WORKER Patient stated that this is the correct weight Height 160 cm (5' 3) 08/11/2021 3:24 PM COMPOSITION SIDING WORKER Body Mass Index 28.09 08/11/2021 3:24 PM COMPOSITION SIDING WORKER Plan of Treatment Upcoming Encounters Date Type Department Care Team (Late st Contact Info) Description 04/15/2025 1:00 PM CDT Office Visit [facility] Oncology and H[facility]ology - [place] [address] [facility] [address] [place] [address] Scot Ramos MD [address] [place] [address] Health Maintenance Due Date Last Done Comments DTAP/TDAP/TD VACCINES (1 - Tdap) 10/23/1983 COLORECTAL SCREENING 2009 Colorectal Cancer Screening 2009 FIT-DNA Q 3 years 2009 FIT/FOBT Q 1 year 2009 Flex Sig/CT Colonography Q 5 years 2009 ZOSTER VACCINE (1 of 2) 2014 INFLUENZA VACCINE (#1) 2024 Pre-Diabetes and Diabetes Screening 07/23/2024 07/23/2021, 02/01/2021 BREAST CANCER SCREENING 03/20/2025 03/20/2024 RSV VACCINE (60+ or ) (1 - 1-dose 75+ series) 10/23/2039 HEPATITIS B VACCINES Aged Out No long er eligible based on patient's age to complete this topic Procedures Procedure Name Priority Date/Time Associated Diagnosis Comments MAMMO DIAGNOSTIC UNI LEFT W OR WO CAD Routine 03/20/2024 3:33 PM CDT HEMOGLOBIN A1C Routine 07/23/2021 from Last 3 Months or Most Recently Relevant to Health Maintenance Results * MAMMO DIAGNOSTIC UNI LEFT W OR WO CAD (03/20/2024 3:33 PM CDT) Anatomical Region Laterality Modality Breast Left Mammography us Scot Ramos MD MAMMO ORDERABLES Final Result * HEMOGLOBIN A1C (07/23/2021) Blood us Abstract Provider CHEMISTRY ORDERABLES Final Res ult from Last 3 Months or Most Recently Relevant to Health Maintenance Insurance [facility] CHOICE [id number] Care Teams Dental Laboratory Supervisor Relationship Specialty Start Date End Date Ella Weston MD [address] [place] [address] PCP - General Family Practice 05/26/19
--- OUTSIDE RECORDS SUMMARY | 2024-12-24 11:50 | XMS_ITS | Clinical Summary ---
Author Organization [facility] Address [address] [place] [address] Care Team Providers Care Textile Pin Worker Name Role Phone Ella Weston MD Primary Care Provider [phone] Source Comments [facility],non-owned Affiliates and Associated Physician Practices is amultiple site organization consisting of ambulatory clinics and hospital sitesin [place], [place], [place] and [place]. This disclosure is being madepursuant to the Care Everywhere program and may not contain all information available regarding this patient. Last updated 18.[facility] Allergies Active Allergy Reactions Criticality Noted Date Comments bee sting [Other] Anaphylaxis High 01/22/2018 Codeine Nausea and/or Vomiting 01/15/2018 Hydrocodone Itching 01/15/2018 Furosemide Itching 01/15/2018 Rash Metformin Diarrhea 01/15/2018 Tramadol Nausea and/or Vomiting 01/15/2018 Sertraline Diarrhea 01/15/2018 Medications * Be aware that medications may not be up to date on this document. Alwaysverify current medications with the patient. pioglitazone (ACTOS) 15 MG tablet Take 15 mg by mouth once daily Active atorvastatin (LIPITOR) 80 MG tablet Take 80 mg by mouth at bedtime Active Loratadine 10 MG Active losartan (COZAAR) 25 MG tablet Take 25 mg by mouth once daily Active omeprazole (PRILOSEC) 20 MG capsule Take 20 mg by mouth daily before breakfast Active fluticasone-doni meterol (ADVAIR DISKUS) 250-50 MCG/DOSE inhaler Inhale 1 puff by mouth 2 times daily Active Black Cohosh 40 MG Take 40 mg by mouth Active buPROPion (WELLBUTRIN) 100 MG tablet Take 100 mg by mouth 3 times daily Active calcium 500 mg TABS tablet Take 600 mg by mouth 2 times daily with morning and evening meal Active Carman-3 Fatty Acids (FISH OIL) 1000 MG capsule Active gabapentin (NEURONTIN) 600 MG tablet Take 600 mg by mouth 2 times daily Active glipiZIDE (GLUCOTROL) 5 MG tablet Take 5 mg by mouth daily before breakfast Active potassium chloride (KLOR-CON 10) 10 MEQ tablet Take 10 mEq by mouth once daily Active Melatonin-Pyrid oxine (MELATIN PO) Take 10 mg by mouth Active ACETAMINOPHEN PO Take 1,000 mg by mouth Active ALBUTEROL IN Inhale 2 puffs by mouth Active Aspirin-Acetami nophen-Caffeine (EXCEDRIN PO) Take 2 tablets by mouth Active Butalbital-Aspi rin-Caffeine (FIORINAL PO) Take 50-325 tablets by mouth Active ketorolac (TORADOL) 10 MG tablet Take 10 mg by mouth every 6 hours as needed for Pain Active meloxicam (MOBIC) 15 MG tablet Take 1 tablet by mouth once daily 30 tablet 2 8 Active Additional Information Patient not taking.Reported on 02/04/2019 empagliflozin (JARDIANCE) 10 MG tablet Take 10 mg by mouth once daily Active amitriptyline (ELAVIL) 150 MG tablet 9 Active anastrozole (ARIMIDEX) 1 MG tablet 9 Active diphenoxylate-a tropine (LOMOTIL) 2.5-0.025 MG tablet 9 Active JARDIANCE 25 MG tablet 9 Active hydroCHLOROthia zide (HYDRODIURIL) 25 MG tablet 9 Active lidocaine (XYLOCAINE) 5 % ointment Apply 1 tube to affected area once daily 50 g 5 9 Active lidocaine (LIDODERM) 5 % patch Apply 1 patch to skin once daily Apply to most painful area. 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 Not on file Not on file Last Filed Vital Signs Vital Sign Reading Time Taken Comments Blood Pressure 146/96 02/04/2019 11:36 AM CDT Pulse 99 02/04/2019 11:36 AM CDT Temperature 37.3 C (99.1 F) 08/06/2018 3:40 PM 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 AND 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 Respiratory Rate - - Oxygen Saturation 93% 04/15/2018 10:35 AM CDT Inhaled Oxygen Concentration - - Weight 117 kg (258 lb) 02/04/2019 11:36 AM CDT Height 160 cm (5' 3) 02/04/2019 11:36 AM CDT Body Mass Index [...] - COLON CA SCREENING 1964 MAMMOGRAM 1964 HIV SCREENING 10/23/1979 HEPATITIS C SCREENING 10/18/1982 DTAP/TDAP/TD VACCINES (1 - Tdap) 10/23/1983 PNEUMOCOCCAL VACCINE 50+ (1 of 1 - PCV) 2014 ZOSTER VACCINE (1 of 2) 2014 SCREENING FOR DIABETES 01/15/2018 COVID-19 VACCINE ( - 2023-2 5 season) 2024 DEPRESSION SCREENING 07/23/2024 INFLUENZA VACCINE (Season Ended) 2025 Respiratory Syncytial Virus (RSV) Vaccine Pt: or over 60 yrs (1 - 1-dose 75+ series) 10/23/2039 HEPATITIS B VACCINE Aged Out No longe r eligible based on patient's age to complete this topic HIB VACCINE Aged Out No longer eligi [...] patient's age to complete this topic Insurance [facility] Member Subscriber Plan / Payer (Ef fective 2017-Present) Name:Ofelia Hayward Relation to Subscriber:Self Name:Ofelia Hayward Payer ID:[id number] (NAIC) Type:PPO Address: [place] [phone] Care Teams Textile Pin Worker Relationship Specialty Start Date End Date Ella Weston MD PCP - General 11/12/17
== END 2024-12-24 11:48 | disposition home or self-care (01) ==
PROVIDERS: PCP Family Medicine; Visit Provider Family Medicine
DX: M53.3 Sacrococcygeal disorders, not elsewhere classified (principal); R07.81 Pleurodynia
CPT/HCPCS: 71046; 71100; 72220

== ENCOUNTER 2025-04-01 13:33 | Outpatient (CLI) | payer OTHER, SELFPAY ==
--- NOTE | ~2025-04-01 | MM_ITS ---
EXAMINATION: MM screening devin LT w enmanuel INDICATION: Asymptomatic, referred for screening mammogram. History of bilateral mastectomy with breast reconstruction. 2013. COMPARISON: 03/20/2024 and 08/22/2023 TECHNIQUE: Digital Breast Tomosynthesis CC, MLO views were obtained of LEFT breast with computer-aided detection to assist in interpretation of the study. FINDINGS: The breasts are almost entirely fatty. No focal dominant mass, architectural distortion, or suspicious microcalcifications are identified. There are no features to suggest malignancy. Dystrophic calcifications related to fat necrosis in the upper central breast is unchanged. Postsurgical changes also seen in the left breast. IMPRESSION: 1. No mammographic evidence of malignancy. 2. Recommend routine screening mammography in one year. BI-RADS Category 1: Negative Reviewed, dictated and finalized at location B.
--- OUTSIDE RECORDS SUMMARY | 2025-04-01 14:13 | XMS_ITS | Clinical Summary ---
Author Organization [facility] [employer] Address [address] [place] [address] Care Team Providers Care Medicaid Analyst Name Role Phone Ella Weston MD Primary Care Provider [phone] Source Comments [facility] [employer],non-owned Affiliates and Associated Physician Practices is amultiple site organization consisting of ambulatory clinics and hospital sitesin [place], [place], [place] and [place]. This disclosure is being madepursuant to the Care Everywhere program and may not contain all information available regarding this patient. Last updated 18.[facility] [employer] Allergies Active Allergy Reactions Criticality Noted Date [...] daily with morning and evening meal Active [place]-3 Fatty Acids (FISH OIL) 1000 MG capsule [...] 37.3 C (99.1 F) 08/06/2018 3:40 PM SQUEEGEE TENDER Respiratory Rate - - Oxygen Saturation 93% [...] of 2) 2014 SCREENING FOR DIABETES 01/15/2018 DEPRESSION SCREENING 07/23/2024 COVID-19 VACCINE ( - 2023-2 5 season) 2025 INFLUENZA VACCINE (#1) 2025 Respiratory Syncytial Virus (RSV) Vaccine Pt: [...] age to complete this topic Insurance [facility] Member Subscriber Plan / Payer (Ef fective 2017-Present) Name:Ofelia Hayward Relation to Subscriber:Self Name:Ofelia Hayward Payer ID:[id number] (NAIC) Type:PPO Address: [place] [phone] Care Teams Medicaid Analyst Relationship Specialty Start Date End Date Ella Weston MD PCP - General 11/12/17
--- OUTSIDE RECORDS SUMMARY | 2025-04-01 14:13 | XMS_ITS | Encounter Summary ---
Author Organization [facility] Address [address] [place] [address] Care Team Providers Care Gambling Supervisor Name Role Phone Ella Weston MD Primary Care Provider Encounter Details Date Type Department Care Team (Late st Contact Info) Description 03/31/2025 External Device Data ST[place] ABSTRACTION Provider, Abstract NO ADDRESS ON FILE Social History Tobacco Use Types Packs/Day Years Used Date Smoking Tobacco: Former Cigarettes 1 25 1 08/13/1981 - 06/13/2007 Smokeless Tobacco: Never Comments No Sex and Gender Information Value Date Recorded Sex Assigned at Not on file Legal Sex Female 2:06 PM WORKERS' COMPENSATION MEDIATOR Gender Identity Not on file Sexual Orientation Not on file documented as of this encounter Plan of Treatment Upcoming Encounters Date Type Department Care Team (Late Contact Info) Description 04/15/2025 1:00 PM CDT Office Visit [facility] Oncology and Hematology - [place] [facility] [address] [place] [address] Scot Ramos MD [address] [facility] [address] [place] [address] documented as of this encounter Visit Diagnoses Not on filedocumented in this encounter Care Teams Gambling Supervisor Relationship Specialty Start Date End Date Ella Weston MD [address] [place] [address] PCP - General Family Practice 05/26/19 documented as of this encounter
--- OUTSIDE RECORDS SUMMARY | 2025-04-01 14:13 | XMS_ITS | Clinical Summary ---
Author Organization [facility] Address [facility] [place] [address] Care Team Providers Care Front End Software Developer Name Role Phone Ella Weston MD Primary Care Provider [phone] Allergies Active Allergy Reactions Criticality Noted Date [...] Comments Blood Pressure 116/95 07/10/2023 2:27 PM TIPPLE OILER Pulse 82 07/10/2023 2:27 PM TIPPLE OILER Temperature 36.8 C (98.2 F) 07/10/2023 2:27 PM TIPPLE OILER Respiratory Rate 18 07/10/2023 2:27 PM TIPPLE OILER Oxygen Saturation 99% 07/10/2023 2:27 PM TIPPLE OILER Inhaled Oxygen Concentration - - Weight 90.7 kg (200 lb) 07/10/2023 2:27 PM TIPPLE OILER Height 160 cm (5' 3) 07/10/2023 2:27 PM TIPPLE OILER Body Mass Index 35.43 07/10/2023 2:27 PM TIPPLE OILER Plan of Treatment Health Maintenance Due Date [...] 2023-2 5 season) 2024 05/27/2021, 10/08/2020, 09/10/2020 RSV Immunization or 60+ Years (1 - 1-dose 75+ series) 10/23/2039 Zoster Vaccines Completed 10/27/2021, 04/28/2021 Pneumococcal Vaccine: 50+ Years Completed 11/16/2022, 07/23/2013, 07/23/2003 Meningococcal B Vaccine Aged Out No l onger eligible based on patient's age to complete this topic Meningococcal Vaccine Aged Out No katt tiarra eligible based on patient's age to complete this topic RSV Immunizations Under 20 Months Aged Out No longer eligible b ased on patient's age to complete this topic Insurance [facility] Care Teams Front End Software Developer Relationship Specialty Start Date End Date Ella Weston MD [address] [place] [address] PCP - General FAMILY PRACTICE 07/10/23
--- OUTSIDE RECORDS SUMMARY | 2025-04-01 14:14 | XMS_ITS | Clinical Summary ---
Author Organization [facility] Madi Morales Address [address] [place] [address] Care Team Providers Care Boiler Plant Operator Name Role Phone Ella Weston MD [...] atorvastatin (LIPITOR) 80 mg tablet 9 Active xpaqlnh-[id number]-K-FA -O98-C-scigjwxs (ORTHO-TABS) 500 mg calcium- 400 unit-15 mcg [...] Encounters Date Type Department Care Team Description 03/31/2025 External Device Data STL ABSTRACTION Provider, Abstract 03/24/2025 External Device Data STL ABSTRACTION Provider, Abstract 03/10/2025 External Device Data STL ABSTRACTION Provider, Abstract 03/10/2025 External Device Data STL ABSTRACTION Provider, Abstract 03/03/2025 External Device Data STL ABSTRACTION Provider, Abstract 02/25/2025 External Device Data STL ABSTRACTION Provider, Abstract 02/04/2025 External Device Data STL ABSTRACTION Provider, Abstract 02/03/2025 External Device Data STL ABSTRACTION Provider, Abstract 01/07/2025 External Device Data STL ABSTRACTION Provider, Abstract [...] on file Legal Sex Female 2:06 PM RELIEF MASTER Gender Identity Not on file Sexual Orientation Not on file Last Filed Vital Signs Vital Sign Reading Time Taken Comments Blood Pressure 107/63 09/04/2024 2:20 PM RELIEF MASTER Pulse 84 09/04/2024 2:20 PM RELIEF MASTER Temperature 36.2 C (97.1 F) 09/04/2024 2:20 PM RELIEF MASTER Respiratory Rate 15 09/04/2024 2:20 PM RELIEF MASTER Oxygen Saturation 94% 09/04/2024 2:2 0 PM RELIEF MASTER Inhaled Oxygen Concentration - - Weight 71.9 kg (158 lb 9.6 oz) 09/04/2024 2:20 PM RELIEF MASTER Patient stated that this is the correct weight Height 160 cm (5' 3) 08/11/2021 3:24 PM RELIEF MASTER Body Mass Index 28.09 08/11/2021 3:24 PM RELIEF MASTER Plan of Treatment Upcoming Encounters Date Type Department Care Team (Late st Contact Info) Description 04/15/2025 1:00 PM CDT Office Visit [facility] Oncology and Hematology [facility] [address] [facility] [address] [place] [address] Scot Ramos MD [address] [facility] [address] [place] [address] Health Maintenance Due Date Last Done Comments DTAP/TDAP/TD VACCINES (1 - Tdap) 10/23/1983 COLORECTAL SCREENING 2009 Colorectal Cancer Screening 2009 FIT-DNA Q 3 years 2009 FIT/FOBT Q 1 year 2009 Flex Sig/CT Colonography Q 5 years 2009 ZOSTER VACCINE (1 of 2) 2014 Pre-Diabetes and Diabetes Screening 07/23/2024 07/23/2021, 02/01/2021 Preventative Visit- Commercial 07/23/2024 INFLUENZA VACCINE (#1) 2025 BREAST CANCER SCREENING 03/20/2025 03/20/2024 RSV VACCINE [...] Most Recently Relevant to Health Maintenance Insurance [place] [employer] [id number] Care Teams Boiler Plant Operator Relationship Specialty Start Date End Date Ella Weston MD [address] [facility] [address] [place] [address] PCP - General Family Practice 05/26/19
== END 2025-04-01 13:34 | disposition home or self-care (01) ==
LOC: ANHFOHIMG 13:35
PROVIDERS: PCP Family Medicine; Visit Provider Internal Medicine Hematology & Oncology
DX: Z12.31 Encounter for screening mammogram for malignant neoplasm of breast (principal)
CPT/HCPCS: 77063; 77067

== ENCOUNTER 2025-04-09 07:27 | Outpatient (CLI) | payer OTHER, SELFPAY ==
--- OUTSIDE RECORDS SUMMARY | 2025-04-09 07:45 | XMS_ITS | Clinical Summary ---
Author Organization [facility] Address [address] [place] [address] Care Team Providers Care Hydraulic Hammer Operator Name Role Phone Ella Weston MD Primary Care Provider [phone] Source Comments [facility],non-owned Affiliates and Associated Physician Practices is amultiple site organization consisting of ambulatory clinics and hospital sitesin [place], [place], [place] and [place]. This disclosure is being madepursuant to the Care Everywhere program and may not contain all information available regarding this patient. Last updated 18.[facility] Allergies Active Allergy Reactions Criticality Noted Date [...] daily with morning and evening meal Active Sabael-3 Fatty Acids (FISH OIL) 1000 MG capsule [...] 37.3 C (99.1 F) 08/06/2018 3:40 PM PAPER COATING SUPERVISOR Respiratory Rate - - Oxygen Saturation 93% [...] age to complete this topic Insurance [facility] Member Subscriber Plan / Payer (Ef fective 2017-Present) Name:Ofelia Hayward Relation to Subscriber:Self Name:Ofelia Hayward Payer ID:[id number] (NAIC) Type:PPO Address: [place] [phone] Care Teams Hydraulic Hammer Operator Relationship Specialty Start Date End Date Ella Weston MD PCP - General 11/12/17
[2025-04-09 07:50] LABS: Hematocrit 41.4 % (35.0-49.0); Hemoglobin 13.3 g/dL (12.0-15.0); Immature Granulocyte Percent A 0.3 % (0.0-0.0); Lymphocytes Absolute Auto 4.17 K/mm3 (1.10-4.50); Mean Corpuscular HGB Conc 32.1 g/dL (32-36); Mean Corpuscular Hemoglobin 31.5 pg (27.0-31.0); Mean Corpuscular Volume 98.1 fL (78.0-102.0); Nucleated Red Blood Cells Absolute Auto 0.00 K/mm3 (0.00-0.00); Nucleated Red Blood Cells Perc 0.0 % (0-0.0); Platelet Count Result 268 K/mm3 (150-420); Red Blood Count 4.22 M/mm3 (4.20-5.40); White Blood Count 7.6 K/mm3 (4.8-10.8)
[2025-04-09 08:17] LABS: Alanine Aminotransferase 39 U/L (6-35); Albumin Level 4.6 g/dL (3.5-5.1); Alkaline Phosphatase 85 U/L (38-126); Anion Gap 13 mmol/L (4-12); Aspartate Amino Transferase 32 U/L (14-36); Bilirubin,Total 0.4 mg/dL (0.2-1.3); Blood Urea Nitrogen 18 mg/dL (7-17); Calcium 9.9 mg/dL (8.4-10.2); Carbon Dioxide 30 mmol/L (22-30); Chloride 99 mmol/L (98-107); Estimated Glomerular Filt Rate > 60; Glucose 79 mg/dL (65-110); Osmolality Calculated 294 mOsm/kg (285-295); Potassium 3.6 mmol/L (3.4-5.0); Sodium 142 mmol/L (137-145); Total Protein 7.5 g/dL (6.3-8.2)
== END 2025-04-09 07:28 | disposition home or self-care (01) ==
PROVIDERS: PCP Family Medicine; Visit Provider Internal Medicine Hematology & Oncology
DX: N63.20 Unspecified lump in the left breast, unspecified quadrant (principal)
CPT/HCPCS: 36415; 80053; 85025; 86300

== ENCOUNTER 2025-07-10 22:21 | Emergency (ER) | payer OTHER, SELFPAY ==
--- NOTE | ~2025-07-10 | XR_ITS ---
XR shoulder LT min 2V HISTORY: SUPERIOR AND POSTERIOR LEFT SHOULDER PAIN AFTER MOVING PT. . COMPARISON: None. FINDINGS: External and internal rotated views and axillary view of the left shoulder demonstrate no acute fracture or dislocation. Generative changes with joint space narrowing are noted. There is flattening of the glenoid. Small marginal osteophyte extends from the humeral head. AC joint arthropathy is noted. IMPRESSION: Radiographic examination of the left shoulder demonstrates no acute fracture or dislocation. Reviewed, dictated and finalized at location S. ERING MACHINE TENDER HELPER
[2025-07-10 22:21] VITALS: PULSE 80; RESP 16; TEMP 36.4; O2SAT 100
--- OUTSIDE RECORDS SUMMARY | 2025-07-10 22:24 | XMS_ITS | Clinical Summary ---
Author Organization [facility] Address [facility] [place] [address] Care Team Providers Care Data Control Clerk Name Role Phone Ella Weston MD Primary Care Provider Unavailab le Allergies Active Allergy Reactions Criticality Noted Date Comments Bovine (Beef) Protein-Contai tao Drug Products Unknown 07/10/2023 Codeine Nausea and Vomiting 07/10/2023 Hydrocodone Itching [...] Comments Blood Pressure 116/95 07/10/2023 2:27 PM FIBER OPTICS TECHNICIAN Pulse 82 07/10/2023 2:27 PM FIBER OPTICS TECHNICIAN Temperature 36.8 C (98.2 F) 07/10/2023 2:27 PM FIBER OPTICS TECHNICIAN Respiratory Rate 18 07/10/2023 2:27 PM FIBER OPTICS TECHNICIAN Oxygen Saturation 99% 07/10/2023 2:27 PM FIBER OPTICS TECHNICIAN Inhaled Oxygen Concentration - - Weight 90.7 kg (200 lb) 07/10/2023 2:27 PM FIBER OPTICS TECHNICIAN Height 160 cm (5' 3) 07/10/2023 2:27 PM FIBER OPTICS TECHNICIAN Body Mass Index 35.43 07/10/2023 2:27 PM FIBER OPTICS TECHNICIAN Plan of Treatment Health Maintenance Due Date [...] Mammogram Screening 2004 COVID-19 Vaccine (4 - 2024-2 6 season) 2025 05/27/2021, 10/08/2020, 09/10/2020 Influenza Adult (#1) 2025 06/22/2017 RSV Immunization or 60+ Years (1 - 1-dose 75+ series) 10/23/2039 Zoster Vaccines Completed 10/27/2021, 04/28/2021 Pneumococcal Vaccine: 50+ Years Completed 11/16/2022, 07/23/2013, 07/23/2003 Hepatitis A Vaccines Aged Out No long er eligible based [...] patient's age to complete this topic Insurance Care Teams Data Control Clerk Relationship Specialty Start Date End Date Ella Weston MD PCP - General FAMILY PRACTICE 07/10/23
--- OUTSIDE RECORDS SUMMARY | 2025-07-10 22:24 | XMS_ITS | Clinical Summary ---
Author Organization [employer] [facility] Address [address] [place] [address] Care Team Providers Care Manager Simulation Name Role Phone Ella Weston MD Primary Care Provider [phone] Source Comments [facility],non-owned Affiliates and Associated Physician Practices is amultiple site organization consisting of ambulatory clinics and hospital sitesin [place], [place], [place] and [place]. This disclosure is being madepursuant to the Care Everywhere program and may not contain all information available regarding this patient. Last updated 18.[facility] [facility] Allergies Active Allergy Reactions Criticality Noted Date [...] daily with morning and evening meal Active [place]-3 Fatty Acids (FISH OIL) 1000 MG capsule [...] 37.3 C (99.1 F) 08/06/2018 3:40 PM CONE CHOCOLATE DIPPER Respiratory Rate - - Oxygen Saturation 93% [...] DEPRESSION SCREENING 07/23/2024 COVID-19 VACCINE ( - 2024-2 6 season) 2025 INFLUENZA VACCINE (#1) 2025 Respiratory [...] age to complete this topic Insurance [facility] Member Subscriber Plan / Payer (Ef fective 2017-Present) Name:Ofelia Hayward Relation to Subscriber:Self Name:Ofelia Hayward Payer ID:[id number] (NAIC) Type:PPO Address: [place] [phone] Care Teams Manager Simulation Relationship Specialty Start Date End Date Ella Weston MD PCP - General 11/12/17
--- OUTSIDE RECORDS SUMMARY | 2025-07-10 22:24 | XMS_ITS | Clinical Summary ---
Author Organization [facility] Madi Morales Address [address] [place] [address] Care Team Providers Care Facilities Technician Name Role Phone Ella Weston MD Primary [...] atorvastatin (LIPITOR) 80 mg tablet 9 Active xvypldl-B6-H-FA -M51-D-zjtmrxvz (ORTHO-TABS) 500 mg calcium- 400 unit-15 mcg [...] Encounters Date Type Department Care Team Description 06/09/2025 External Device Data STL ABSTRACTION Provider, Abstract 05/13/2025 External Device Data STL ABSTRACTION Provider, Abstract 04/28/2025 External Device Data STL ABSTRACTION Provider, Abstract 04/15/2025 1:00 PM CDT Office Visit [facility] Oncology and Hematology [facility] [address] [place] [address] Scot Ramos MD Malignant neoplasm of upper-outer quadrant of right breast in female, estrogen receptor positive (CMS/HCC) (Primary Dx); Visit for screening mammogram 04/13/2025 Orders Only [facility] Oncology and [facility] [address] [place] [address] Scot Ramos MD from Last 3 Months Family History Medical [...] on file Legal Sex Female 2:06 PM MANAGER DATA CENTER Gender Identity Not on file Sexual Orientation Not on file Last Filed Vital Signs Vital Sign Reading Time Taken Comments Blood Pressure 112/70 04/15/2025 1:05 PM CDT Pulse 72 04/15/2025 1:05 PM CDT Temperature 36.3 C (97.4 F) 04/15/2025 1:05 PM CDT Respiratory Rate 15 04/15/2025 1:05 PM CDT Oxygen Saturation 90% 04/15/2025 1:05 PM CDT Inhaled Oxygen Concentration - - Weight 73.8 kg (162 lb 9.6 oz) 04/15/2025 1:05 P M CDT Height 160 cm (5' 3) 08/11/2021 3:24 PM MANAGER DATA CENTER Body Mass Index 28.8 08/11/2021 3:24 PM MANAGER DATA CENTER Plan of Treatment Upcoming Encounters Date Type Department Care Team (Late st Contact Info) Description 10/14/2025 1:15 PM CDT Office Visit [facility] Oncology and Hematology [facility] [address] [facility] [address] [place] [address] Scot Ramos MD [address] [facility] [address] [place] [address] Health Maintenance Due Date Last Done Comments DTAP/TDAP/TD VACCINES (1 - Tdap) 10/23/1983 COLORECTAL SCREENING 2009 Colorectal Cancer Screening 2009 FIT-DNA Q 3 years 2009 FIT/FOBT Q 1 year 2009 Flex Sig/CT Colonography Q 5 years 2009 ZOSTER VACCINE (1 of 2) 2014 Pre-Diabetes and Diabetes Screening 07/23/2024 07/23/2021, 02/01/2021 INFLUENZA VACCINE (#1) 2025 BREAST CANCER SCREENING 04/01/2026 04/01/20, 03/20/2024 RSV VACCINE (60+ or ) (1 - 1-dose 75+ series) 10/23/2039 HEPATITIS B VACCINES Aged Out No long er eligible based on patient's age to complete this topic Procedures Procedure Name Priority Date/Time Associated Diagnosis Comments MAMMO SCREENING UNILATERAL LEFT Routine 04/01/2025 12:36 PM CDT HEMOGLOBIN A1C Routine 07/23/2021 from Last 3 Months or Most Recently Relevant to Health Maintenance Results * MAMMO SCREENING UNILATERAL LEFT (04/01/2025 12:36 PM CDT) Anatomical Region Laterality Modality Breast Left Mammography Scot Ramos MD MAMMO ORDERABLES Final Result * HEMOGLOBIN A1C (07/23/2021) Blood us Abstract Provider CHEMISTRY ORDERABLES Final Res ult from Last 3 Months or Most Recently Relevant to Health Maintenance Insurance [facility]ICE [id number] Care Teams Facilities Technician Relationship Specialty Start Date End Date Ella Weston MD [address] [place] [id number] PCP - General Family Practice 05/26/19
--- NOTE | 2025-07-10 22:25 | ED.GENADULT ---
HPI - General Adult General Chief complaint: Extremity Injury, Upper Stated complaint: Left shoulder injury Time Seen by Provider: 07/10/25 22:24 History of Present Illness HPI narrative: Ofelia is a 59F with a PMH of HTN, HLD, chronic sinusitis, tobacco abuse, DMII, asthma that presented to the ED after a left shoulder injury. 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 Since it happened she cannot abduct or flex past 90 degrees. No other injuries reported. Related Data Home Medications ?Medication ?Instructions ?Recorded ?Confirmed ?Last Taken ?Type vuavkdd-jmlhnoucwhtjd-fwrtguqo 250 2 tablet PO Q4-6H PRN Migraine 09/18/20 12/20/24 06/01/21 History mg-250 mg-65 mg tablet (Excedrin Headache Migraine) multivitamin with minerals-folic 1 tablet PO DAILY 09/18/20 12/20/24 06/29/21 History acid 0.4 mg tablet (Adult One Daily Multivitamin) potassium chloride 10 mEq 30 meq PO BID 09/18/20 12/20/24 06/29/21 History capsule,extended release sajcasroow-hzouzvt-ckzgubbo 50 1 tablet PO Q4H PRN Migraine 06/08/21 12/20/24 06/01/21 History mg-325 mg-40 mg tablet Headache acetaminophen 500 mg capsule 1,000 mg PO Q6H PRN Pain 03/23/22 01/01/24 Unknown History aspirin 81 mg tablet,delayed 81 mg PO DAILY 03/23/22 12/20/24 Unknown History release Allergies Allergy/AdvReac Type Severity Reaction Status Date / Time furosemide (From Lasix) Allergy Severe Hives Verified 07/10/25 22:30 hydrocodone Allergy Severe Hives Verified 07/10/25 22:30 morphine Allergy Other Verified 07/10/25 22:30 oxycodone (From Percocet) Allergy Other Verified 07/10/25 22:30 metformin AdvReac Severe Diarrhea Verified 07/10/25 22:30 codeine AdvReac Intermediate Vomiting Verified 07/10/25 22:30 sertraline (From Zoloft) AdvReac Intermediate Diarrhea Verified 07/10/25 22:30 tramadol AdvReac Intermediate Nausea and Verified 07/10/25 22:30 Vomiting PLATELET RICH PLASMA AdvReac Severe Other Uncoded 12/24/24 11:06 Review of Systems Review of Systems: All systems reviewed & are unremarkable except as noted in HPI and below [facility] Past Medical History Medical History At increased risk for exposure to measles virus Subacromial impingement of right shoulder Bursitis of shoulder, right Rotator cuff tear, right Right knee sprain History of breast cancer with bilateral mastectomy and radiation Ductal carcinoma of right breast Hyperthyroidism Vitamin B12 deficiency Hypercholesterolemia Hypomagnesemia Insomnia Chronic migraine Obstructive sleep apnea syndrome, moderate HTN (hypertension) Chronic right shoulder pain De Quervain's tenosynovitis Chronic neuropathic pain Numbness and tingling Neuropathy COPD (chronic obstructive pulmonary disease) Asthma Type 2 diabetes mellitus Surgical History Surgical History S/P nasal surgery 06/14/2021 Bilateral endoscopic image guided maxillary antrostomies 2. Bilateral endoscopic image guided total ethmoidectomies 3. Bilateral image guided endoscopic sphenoidotomies 4. Bilateral image guided frontal sinusotomies 5. Endoscopic assisted septoplasty 6. Inferior turbinate reduction submucosally with outfracture Surgeon History of tonsillectomy History of bilateral breast reduction surgery H/O mastectomy Family History Family History Father Cancer Hypertension Mother Asthma Cancer Hypertension Depression Heart disease Cerebrovascular accident Thyroid disorder Sibling Alcoholism Cancer Other Asthma Depression Grandparent Diabetes mellitus Hypertension Heart disease Cerebrovascular accident Grandparent Cancer Cerebrovascular accident Other Arthritis HLD (hyperlipidemia) Kidney disorder Lung cancer Neuropathy Skin cancer Social History Social History Social History: 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 She has 2 children Which her daughters. She is a former smoker. The patient is listed as being single. the patient denies any alcohol marijuana or illicit drugs. She does not have a durable power coordinator of library services for healthcare. Code status full code Smoking packs per day: 1.5 Smoking cigarettes per day: 30.0 Years smoked: 30 Smoking pack-years: 45.00 Smoking status: Former smoker Tobacco type: cigarettes Second hand tobacco smoke exposure: No Smoking end date: 07/23/06 Alcohol intake: current Alcohol use details: 3/YEAR Substance use: never Substance use type: does not use Living arrangements: alone Occupation/Education: occupation Gender identity (if verbalized by the patient): Female Spiritual care concerns: No Exam Const: General: cooperative, healthy appearing, comfortable, no acute distress, well developed, alert, awake and Physically active Orientation/consciousness: oriented to person, oriented to place and oriented to time HENMT: Head: normal to inspection, normocephalic and atraumatic Ears: hearing grossly normal bilaterally and external ears normal Face/Nose/Sinus: Normal external nose present Eyes: General: appearance normal, both eyes and all related structures Periorbital: periorbital findings normal Sclera: sclerae normal Pupils: Equal, round and reactive pupils present Neck: Neck: normal visual inspection Chest: Chest palpation & inspection: normal inspection of the chest Resp: Effort & Inspection: normal respiratory effort, able to speak in complete sentences and no respiratory distress Cardio: Jugular venous distension: no JVD Skin: General skin exam: normal color and no rashes or lesions noted Neuro: General: oriented to person, oriented to place and oriented to time Cranial nerves: Yes Equal, round and reactive pupils present Extrem: General: normal to inspection Course Course Emergency Course: Ordered radiographs. She denied pain meds. MDM Differential Diagnosis Differential Diagnosis: rotator cuff strain/tear vs labrum tear vs muscular strain vs other Discharge Plan Discharge Clinical Impression: Rotator cuff strain Patient Disposition: Home Condition: Stable Patient Language: Syriac Prescriptions: No Action potassium chloride 10 mEq capsule, extended release 30 meq PO BID Excedrin Migraine 250-250-65 mg Tablet 2 tablet PO Q4-6H PRN (Reason: Migraine Headache) multivit with min-folic acid [Adult One Daily Multivitamin] 0.4 mg Tablet 1 tablet PO DAILY aspirin 81 mg tablet,delayed release (DR/EC) 81 mg PO DAILY Patient Comments: on provided med list acetaminophen 500 mg capsule 1,000 mg PO Q6H PRN (Reason: Pain) Patient Comments: on provided med list xkatujjybn-boylylm-fsjqkspf 50-325-40 mg Tablet 1 tablet PO Q4H PRN (Reason: Migraine Headache) tobramycin 0.3 % drops 1 drp ophthalmic (eye) Q4H Qty: 5 0RF Rx Instructions: Place one drop in affected eye every 4 hours. bupropion HCl 150 mg tablet sustained-release 12 hr See Rx Instructions .ROUTE .COMPLEX Qty: 270 0RF Dose Instruction: TAKE 3 TABLETS DAILY Rx Instructions: TAKE 3 TABLETS DAILY omeprazole 40 mg capsule,delayed release(DR/EC) 40 mg PO DAILY Qty: 90 2RF torsemide 10 mg tablet 10 mg PO QAM Qty: 90 2RF albuterol sulfate [Ventolin HFA] 90 mcg/actuation HFA aerosol inhaler 2 puff inhalation QID PRN (Reason: shortness of breath or wheezing) Qty: 6.7 0RF Mounjaro 10 mg/0.5 mL pen injector See Rx Instructions .ROUTE .COMPLEX Qty: 2 2RF Dose Instruction: INJECT SUBCUTANEOUSLY ONCE WEEKLY Rx Instructions: INJECT SUBCUTANEOUSLY ONCE WEEKLY Nurtec ODT 75 mg tablet,disintegrating See Rx Instructions .ROUTE .COMPLEX Qty: 16 2RF Dose Instruction: TAKE 1 TABLET BY MOUTH ONCE EVERY OTHER DAY FOR MIGRAINE HEADACHE Rx Instructions: TAKE 1 TABLET BY MOUTH ONCE EVERY OTHER DAY FOR MIGRAINE HEADACHE trazodone 100 mg tablet 100 mg .ROUTE BID Qty: 180 0RF Rx Instructions: 100 mg twice a day; montelukast 10 mg tablet See Rx Instructions .ROUTE .COMPLEX Qty: 90 1RF Dose Instruction: TAKE 1 TABLET DAILY Rx Instructions: TAKE 1 TABLET DAILY escitalopram oxalate 10 mg tablet See Rx Instructions .ROUTE .COMPLEX Qty: 90 1RF Dose Instruction: TAKE 1 TABLET DAILY Rx Instructions: TAKE 1 TABLET DAILY atorvastatin 80 mg tablet 80 mg PO DAILY Qty: 90 1RF Follow-up/Referrals: Idris Cote, [Primary Care Provider, Family Practice]
== END 2025-07-10 22:45 | disposition home or self-care (01) ==
LOC: CHSED 22:54
PROVIDERS: Emergency Provider Family Medicine; PCP Family Medicine
DX: S46.012A Strain of muscle(s) and tendon(s) of the rotator cuff of left shoulder, initial encounter (principal); E11.9 Type 2 diabetes mellitus without complications; I10 Essential (primary) hypertension; E78.5 Hyperlipidemia, unspecified; J45.909 Unspecified asthma, uncomplicated; J44.9 Chronic obstructive pulmonary disease, unspecified; Z87.891 Personal history of nicotine dependence; X50.0XXA Overexertion from strenuous movement or load, initial encounter; Y99.0 Civilian activity done for income or pay
CPT/HCPCS: 73030; 99283